=== PATIENT | male | born 1950 | race Caucasian/White ===

== ENCOUNTER 2017-12-02 22:35 | Inpatient (IN) | payer MEDICAID ==
[2017-12-02] MEDS ORDERED: Acetaminophen 650mg/20.3ml solution UD ONE (22:53)
--- NOTE | 2017-12-02 23:16 | C.PDOC ---
History Of Present Illness 67 year old male presents to the ED complaining of a severe sore throat since this afternoon. States he ate bread this morning and had some trouble swallowing. He then developed a severe sore throat and felt as if he could no longer swallow. Patient can swallow his saliva, but states even when taking a breath he has pain. He then developed a fever of 101. Time Seen by Provider: 12/02/17 22:53 Chief Complaint (Nursing): Fever History Per: Patient History/Exam Limitations: no limitations Onset/Duration Of Symptoms: Days (x1) Current Symptoms Are (Timing): Still Present Location Of Pain: Throat Past Medical History Reviewed: Historical Data, Nursing Documentation, Vital Signs - Medical History PMH: Diabetes, HTN Surgical History: No Surg Hx Family History: States: No Known Family Hx - Social History Hx Tobacco Use: No Hx Alcohol Use: No Hx Substance Use: No - Immunization History Hx Influenza Vaccination: No Hx Pneumococcal Vaccination: Yes Review Of Systems Except As Marked, All Systems Reviewed And Found Negative. Constitutional: Positive for: Fever ENT: Positive for: Throat Pain, Other (difficulty swallowing). Negative for: Nose Congestion Respiratory: Negative for: Cough, Shortness of Breath Physical Exam - Physical Exam Appears: Non-toxic, No Acute Distress Skin: Normal Color, Warm, Dry Head: Atraumatic, Normacephalic Eye(s): bilateral: Normal Inspection, PERRL, EOMI Nose: Normal Throat: Normal, No Erythema, No Exudate, No Drooling, Other (voice hoarse) Neck: Normal ROM, Trachea Midline, Supple Lymphatic: Normal Exam, No Adenopathy Chest: Symmetrical Cardiovascular: Rhythm Regular Respiratory: No Rhonchi, No Wheezing, Other (Harsh breath sounds with each inspiration, but lungs are clear to auscultation) Extremity: Bilateral: Atraumatic, Normal Color And Temperature Neurological/Psych: Normal Speech, Other (Awake and alert) ED Course And Treatment - Laboratory Results Result Diagrams: 12/02/17 23:22 12/02/17 23:22 Lab Interpretation: Abnormal (WBC 10.3 with 90 segs) Medical Decision Making Medical Decision Making: Time: 23:02 Initial Plan: * CMP * CBC * Rapid strep test * CT Neck Soft Tissue w/ contrast Disposition - Disposition Disposition Time: 01:17 Condition: STABLE Forms: Eat Latin (Croatian) - Clinical Impression Clinical Impression: Pharyngitis, Fever - Scribe Statement The provider has reviewed the documentation as recorded by the Martyibe Antonia Ashley Provider Attestation: All medical record entries made by the Phil were at my direction and personally dictated by me. I have reviewed the chart and agree that the record accurately reflects my personal performance of the history, physical exam, medical decision making, and the department course for this patient. I have also personally directed, reviewed, and agree with the discharge instructions and disposition. Physician Patient Turnover Patient Signed Over To: Peter Harper Handoff Comments: pending CT scan results.
[2017-12-02 23:25] LABS: BASO # 0.1 K/uL (0.0-0.2); BASO % 0.6 % (0.0-2.0); EOS % 0.3 % (0.0-4.0); HEMOGLOBIN 10.8 g/dL (12.0-18.0); LYMPH # 0.3 K/uL (1.0-4.3); LYMPH % 3.3 % (20.0-40.0); MEAN CELL VOLUME 85.6 fL (80.0-94.0); MEAN CORPUSCULAR HEMOGLOBIN 29.6 pg (27.0-31.0); MEAN CORPUSCULAR HGB CONC 34.6 g/dL (33.0-37.0); MEAN PLATELET VOLUME 9.1 fL (7.2-11.7); MONO # 0.5 K/uL (0.0-0.8); MONO % 5.1 % (0.0-10.0); NEUT # 9.3 K/uL (1.8-7.0); NEUT % 90.7 % (50.0-75.0); PLATELET COUNT 228 K/uL (130-400); RBC 3.64 Mil/uL (4.40-5.90); RED CELL DISTRIBUTION WIDTH 13.1 % (11.5-14.5); WHITE BLOOD COUNT 10.3 K/uL (4.8-10.8)
[2017-12-02 23:38] LABS: ALBUMIN 3.8 g/dL (3.5-5.0); ALT/SGPT 28 U/L (21-72); AST/SGOT 32 U/L (17-59); BLOOD UREA NITROGEN 26 mg/dL (9-20); CALCIUM 8.8 mg/dl (8.6-10.4); GFR AFRICAN-AMERICAN > 60; GFR NON-AFRICAN AMERICAN 51
[2017-12-02] MEDS ORDERED: Iohexol 300 100 ML IJ ONE (23:39)
[2017-12-02 23:54] LABS: EOSINOPHIL 1 % (0-4); LYMPHOCYTE 3 % (20-40); MONOCYTE 4 % (0-10); NEUTROPHIL 92 % (50-75); TOTAL CELLS COUNTED 100
[2017-12-02 23:55] LABS: PLATELET ESTIMATE NORMAL (NORMAL)
[2017-12-02 23:56] LABS: ANISOCYTOSIS SLIGHT; OVALOCYTES SLIGHT; POIKILOCYTOSIS SLIGHT
[2017-12-03] MEDS ORDERED: Sodium Chloride 0.9% 1,000 ML IV ONE (00:02)
[2017-12-03] MEDS ORDERED: Sodium Chloride 0.9% 1,000 ML ONE (00:20)
--- NOTE | 2017-12-03 01:50 | CT ---
EXAM: CT Neck With Intravenous Contrast EXAM DATE/TIME: 12/02/2017 11:04 PM CLINICAL HISTORY: 67 years old, male; Pain; Painful swallowing; Additional info: Sore throat with difficulty breathing TECHNIQUE: Axial computed tomography images of the neck with intravenous contrast. All CT scans at this facility use one or more dose reduction techniques, viz.: automated exposure control; ma/kV adjustment per patient size (including targeted exams where dose is matched to indication; i.e. head); or iterative reconstruction technique. Coronal and sagittal reformatted images were created and reviewed. CONTRAST: 100 mL of OMNI 300 administered intravenously. COMPARISON: No relevant prior studies available. FINDINGS: The epiglottis is markedly enlarged with heterogeneous enhancement (measuring 2 x 2 centimeters on sagittal image 64). The enlarged epiglottis narrows the airway although it remains patent. In the prevertebral soft tissues at C3-4, there is a rounded 1 cm area of low attenuation also seen on sagittal image 64, nearly abutting the enlarged inflamed epiglottis. There is heterogeneous enhancement along the inferior aspect. I am concerned about early developing retropharyngeal abscess. There is a 7 mm area of enhancement in the peripheral right upper lung of uncertain etiology possible AVM. Recommend correlation with priors if any exist. Otherwise, followup is recommended. Mild mucosal thickening of the maxillary sinuses. Vascular calcifications are noted. Mild degenerative changes are present in the osseous structures. IMPRESSION: Massively enlarged epiglottis likely secondary to acute infectious/inflammatory process although underlying lesion would certainly be possible. Mass effect upon the airway although the airway remains patent. Rounded fluid density along the anterior aspect of C3-4 possible early developing retropharyngeal abscess.
[2017-12-03] MEDS ORDERED: EPINEPHrine 1 mg/ml (1:1000) Inj ONE (02:06)
[2017-12-03] MEDS ORDERED: EPINEPHrine 1 mg/ml (1:1000) Inj IM ONE (02:18)
--- NOTE | 2017-12-03 02:31 | CP.PCM.HP ---
<Michell Wei - Last Filed: 12/03/17 02:44> History of Present Illness - History of Present Illness History of Present Illness: CC: SOB Patient had SOB for a day, unable to tolerate food, last drank tea at 9 am . Patient was offered a slice of bread by family, but patient had difficulty swallowing and did not want to eat. Patient admits to fever. Denies chills, diarrhea, constipation, numbness, weakness. Patient states he had a rash on his arm recently which went away after being given benadryl. In ER patient was given decadron and epinephrine. Upon interview, patient did not have stridor, no accessory muscle use. PMH: DM, HTN Meds: metforming, norvasc psh: no surgical history Family history: non-contributory Social: no smoking, no etoh, no illicit drug use Present on Admission - Present on Admission Any Indicators Present on Admission: No History of DVT/PE: No History of Uncontrolled Diabetes: No Urinary Catheter: No Past Patient History - Past Social History Smoking Status: Never Smoked - CARDIAC Hx Hypertension: Yes - ENDOCRINE/METABOLIC Hx Endocrine Disorders: Yes Hx Diabetes Mellitus Type 1: Yes - PSYCHIATRIC Hx Substance Use: No - SURGICAL HISTORY Hx Surgeries: No - ANESTHESIA Hx Anesthesia: No Meds Allergies/Adverse Reactions: Allergies Allergy/AdvReac Type Severity Reaction Status Date / Time No Known Allergies Allergy Verified 12/02/17 22:44 Physical Exam - Constitutional Appears: No Acute Distress - Head Exam Head Exam: ATRAUMATIC, NORMAL INSPECTION, NORMOCEPHALIC - Eye Exam Eye Exam: EOMI, Normal appearance Pupil Exam: NORMAL ACCOMODATION, PERRL - ENT Exam ENT Exam: Mucous Membranes Moist - Neck Exam Neck exam: Positive for: Full Rom. Negative for: Lymphadenopathy - Respiratory Exam Respiratory Exam: NORMAL BREATHING PATTERN. absent: Accessory Muscle Use, Wheezes, Stridor Additional comments: patient is leaning forward slightly with open mouth breathing and nasal cannula - Cardiovascular Exam Cardiovascular Exam: REGULAR RHYTHM, +S1, +S2 - GI/Abdominal Exam GI & Abdominal Exam: Normal Bowel Sounds, Soft. absent: Tenderness - Extremities Exam Extremities exam: Positive for: full ROM, normal inspection. Negative for: pedal edema - Back Exam Back exam: FULL ROM, NORMAL INSPECTION - Neurological Exam Neurological exam: Alert, CN II-XII Intact, Oriented x3 - Psychiatric Exam Psychiatric exam: Normal Affect, Normal Mood - Skin Skin Exam: Dry, Intact, Normal Color, Warm Results - Vital Signs Recent Vital Signs: Last Vital Signs Temp Pulse 94 H 12/03/17 02:20 Resp 15 12/03/17 02:20 BP 166/80 H 12/03/17 02:20 Pulse Ox 99 12/03/17 02:20 - Labs Result Diagrams: 12/02/17 23:22 12/02/17 23:22 Labs: Laboratory Results - last 24 hr 12/02/17 12/02/17 12/02/17 23:22 23:22 23:22 WBC 10.3 RBC 3.64 L Hgb 10.8 L Hct 31.1 L MCV 85.6 MCH 29.6 MCHC 34.6 RDW 13.1 Plt Count 228 MPV 9.1 Neut % (Auto) 90.7 H Lymph % (Auto) 3.3 L [place] % (Auto) 5.1 Eos % (Auto) 0.3 Baso % (Auto) 0.6 Neut # (Auto) 9.3 H Lymph # (Auto) 0.3 L [place] # (Auto) 0.5 Eos # (Auto) 0.0 Baso # (Auto) 0.1 Neutrophils % (Manual) 92 H Lymphocytes % (Manual) 3 L Monocytes % (Manual) 4 Eosinophils % (Manual) 1 Platelet Estimate Normal Poikilocytosis (manual Slight Anisocytosis (manual) Slight Ovalocytes Slight Sodium 139 Potassium 4.3 Chloride 105 Carbon Dioxide 24 Anion Gap 14 BUN 26 H Creatinine 1.4 Est GFR ( Amer) > 60 Est GFR (Non-Af Amer) 51 Random Glucose 100 Calcium 8.8 Total Bilirubin 1.0 AST 32 ALT 28 Alkaline Phosphatase 81 Total Protein 7.5 Albumin 3.8 Globulin 3.6 Albumin/Globulin Ratio 1.0 Grp A Beta Strep Ag Negative Assessment & Plan - Assessment and Plan (Free Text) Assessment: 67M with pmh of diabetes, presents with difficulty breathing, found to have stridor and severe epiglotitis Epiglotitis and possible early developing retropharyngeal abscess patient went to OR for airway management and moved to ICU for admission 12/03/17 CT soft tissues of neck: massively enlarged epiglottis secondary to acute infectious/inflammatory process. airway remains patent. Rounded fluid density along anterior aspect of C3-C4, consider early developing retropharyngeal abscess f/u blood culture decadron rocephin 1gm qd DM accucheck q6h insulin ss HTN hold home norvasc monitor vitals Prophylaxis: heparin 5000 sc protonix scds NPO Michell Wei DO PGY1 - Date & Time Date: 12/03/17 Time: 02:27 <Jose Damian P - Last Filed: 12/03/17 03:23> Results - Vital Signs Recent Vital Signs: Last Vital Signs Temp 99.5 F 12/03/17 02:00 Pulse 103 H 12/03/17 03:10 Resp 18 12/03/17 03:10 BP 167/77 H 12/03/17 03:10 Pulse Ox 100 12/03/17 03:10 - Labs Result Diagrams: 12/02/17 23:22 12/02/17 23:22 Labs: Laboratory Results - last 24 hr 12/02/17 12/02/17 12/02/17 23:22 23:22 23:22 WBC 10.3 RBC 3.64 L Hgb 10.8 L Hct 31.1 L MCV 85.6 MCH 29.6 MCHC 34.6 RDW 13.1 Plt Count 228 MPV 9.1 Neut % (Auto) 90.7 H Lymph % (Auto) 3.3 L Carolina % (Auto) 5.1 Eos % (Auto) 0.3 Baso % (Auto) 0.6 Neut # (Auto) 9.3 H Lymph # (Auto) 0.3 L [place] # (Auto) 0.5 Eos # (Auto) 0.0 Baso # (Auto) 0.1 Neutrophils % (Manual) 92 H Lymphocytes % (Manual) 3 L Monocytes % (Manual) 4 Eosinophils % (Manual) 1 Platelet Estimate Normal Poikilocytosis (manual Slight Anisocytosis (manual) Slight Ovalocytes Slight Sodium 139 Potassium 4.3 Chloride 105 Carbon Dioxide 24 Anion Gap 14 BUN 26 H Creatinine 1.4 Est GFR ( Amer) > 60 Est GFR (Non-Af Amer) 51 Random Glucose 100 Calcium 8.8 Total Bilirubin 1.0 AST 32 ALT 28 Alkaline Phosphatase 81 Total Protein 7.5 Albumin 3.8 Globulin 3.6 Albumin/Globulin Ratio 1.0 Grp A Beta Strep Ag Negative Attending/Attestation - Attestation I have personally seen and examined this patient.: Yes I have fully participated in the care of the patient.: Yes I have reviewed all pertinent clinical information: Yes Notes (Text): 12/03/17 03:17 67 M with h/o dm, htn, had fever yesterday afternoon, difficulty in breathing and speaking since around 6 pm, In ER CT shows swelling of epiglottis, extending down to larynx, but patent underneath cords. In ER evaluated post decadron, epinephrine and rocephin. At time of exam no stridor, but sight hoarse voice, pain in larynx but no breathing distress Plan Elective intubation, in OR in presence of ENT for possible trach decadron, abx GI/DVT prophylaxis Insulin sliding scale See orders for detail.
[2017-12-03] MEDS ORDERED: Propofol 10 mg/ml Inj (20 ML) ONE ×2 (03:44→04:09)
[2017-12-03] MEDS ORDERED: Lidocaine/Epinephrine 1% 1:100000 10 ML IJ ONE (03:49)
[2017-12-03] MEDS: ceFAZolin IV 1 gm in Dextrose 1 GM/50 ML BAG IVPB ONE (03:54)
[2017-12-03] MEDS ORDERED: Midazolam 2 MG/2 ML VIAL ONE (04:08)
[2017-12-03] MEDS ORDERED: Succinylcholine Chloride 20 mg/ml Syr (5 ml) IV ONE (04:08)
[2017-12-03] MEDS ORDERED: Propofol 10 mg/ml Inj (100 ml) IV SCH (04:30)
[2017-12-03] MEDS: Sodium Chloride 0.45% 1,000 ML IV SCH ×4 (05:00→16:40)
[2017-12-03] MEDS: Propofol 10 mg/ml 1,000 MG/100 ML VIAL IV PRN ×4 (05:00→22:30)
[2017-12-03 06:08] LABS: ABG ALLEN TEST POS; ARTERIAL BLOOD GAS HCO3 21.1 mmol/L (21-28); ARTERIAL BLOOD GAS HEMOGLOBIN 9.7 g/dL (11.7-17.4); ARTERIAL BLOOD GAS O2 SAT 98.6 % (95-98); ARTERIAL BLOOD GAS PCO2 39 mm/Hg (35-45); ARTERIAL BLOOD GAS PH 7.33 (7.35-7.45); ARTERIAL BLOOD GAS PO2 157 mm/Hg (80-100); ARTERIAL BLOOD GAS TCO2 21.8 mmol/L (22-28)
[2017-12-03] MEDS: (Novolin R) Insulin Human Regular 100 units/ml vial SC SCH ×3 (06:35→17:38)
[2017-12-03] MEDS: Dexamethasone 4 mg/1 ml IVP SCH ×3 (06:40→21:40)
[2017-12-03 06:44] LABS: BASO % 0.1 % (0.0-2.0); HEMOGLOBIN 9.2 g/dL (12.0-18.0); LYMPH # 0.2 K/uL (1.0-4.3); LYMPH % 1.5 % (20.0-40.0); MEAN CELL VOLUME 86.1 fL (80.0-94.0); MEAN CORPUSCULAR HEMOGLOBIN 29.5 pg (27.0-31.0); MEAN CORPUSCULAR HGB CONC 34.2 g/dL (33.0-37.0); MEAN PLATELET VOLUME 9.6 fL (7.2-11.7); MONO # 0.2 K/uL (0.0-0.8); MONO % 1.8 % (0.0-10.0); NEUT # 11.2 K/uL (1.8-7.0); NEUT % 96.6 % (50.0-75.0); PLATELET COUNT 207 K/uL (130-400); RBC 3.12 Mil/uL (4.40-5.90); RED CELL DISTRIBUTION WIDTH 13.3 % (11.5-14.5); WHITE BLOOD COUNT 11.6 K/uL (4.8-10.8)
[2017-12-03 06:59] LABS: CALCIUM 7.6 mg/dl (8.6-10.4)
[2017-12-03] MEDS ORDERED: (Novolin R) Insulin Human Regular 100 units/ml vial SC SCH (07:30)
--- NOTE | 2017-12-03 08:24 | RAD ---
HISTORY: post intubation COMPARISON: 12/03/2017 FINDINGS: Endotracheal tube terminates 2.5 cm proximal to the scotty. LUNGS: The lungs are well inflated and clear. PLEURA: No significant pleural effusion identified, no pneumothorax apparent. CARDIOVASCULAR: Normal. OSSEOUS STRUCTURES: No significant abnormalities. VISUALIZED UPPER ABDOMEN: Normal. OTHER FINDINGS: None. IMPRESSION: Endotracheal tube terminates 2.5 cm proximal to the scotty. No acute findings.
--- NOTE | 2017-12-03 08:28 | RAD ---
PROCEDURE: CHEST RADIOGRAPH, 1 VIEW HISTORY: Shortness of breath COMPARISON: None available. FINDINGS: LUNGS: The lungs are well inflated. There is bibasilar atelectasis. There are probable calcified granulomas in the lower lobes. PLEURA: No pneumothorax or pleural fluid seen. CARDIOVASCULAR: Normal. OSSEOUS STRUCTURES: No significant abnormalities. VISUALIZED UPPER ABDOMEN: Normal. OTHER FINDINGS: None. IMPRESSION: No active pulmonary disease.
[2017-12-03 09:09] LABS: URINE BILIRUBIN NEGATIVE (NEGATIVE); URINE BLOOD NEGATIVE (NEGATIVE); URINE CLARITY Clear (Clear); URINE COLOR Straw (YELLOW); URINE GLUCOSE (UA) NORMAL (Normal); URINE LEUKOCYTE ESTERASE NEG Leu/uL (Negative); URINE PROTEIN 3+ mg/dL (NEGATIVE); URINE UROBILINOGEN NORMAL mg/dL (0.2-1.0)
[2017-12-03 09:11] LABS: BANDS 7 % (0-2); LYMPHOCYTE 1 % (20-40); MONOCYTE 1 % (0-10); NEUTROPHIL 91 % (50-75); PLATELET ESTIMATE NORMAL (NORMAL); TOTAL CELLS COUNTED 100
[2017-12-03 09:12] LABS: ANISOCYTOSIS SLIGHT; HYPOCHROMIC SLIGHT
[2017-12-03 09:15] LABS: BURR CELLS SLIGHT; OVALOCYTES SLIGHT; POIKILOCYTOSIS SLIGHT
[2017-12-03 09:16] LABS: LARGE PLATELETS PRESENT; MICROCYTOSIS SLIGHT
--- NOTE | 2017-12-03 09:24 | CP.PCM.PN ---
Subjective - Date & Time of Evaluation Date of Evaluation: 12/03/17 Time of Evaluation: 09:00 - Subjective Subjective: Hospitalist Progress Note Patient was seen and examined at 9 AM 12/03/17 ICU Bed 14 A 67 year old male who presented late night 12/02/17 with complaints of SOB, Fever , Dysphagia. He was found to have Epiglottitis and possible Retropharyngeal Abscess and required intubation. He was admitted to the ICU for further treatment and evaluation. ROS is not possible secondary to the patient being intubated/on vent Exam: General: Intubated on Vent and Diprivan HEENT: NCA, Right Pupil slightly larger than the Left but both are reactive to light, NO cervical/supraclavicular/submandibular lymphadenopathy, Nasal Turbinates are nonerythematous/nonedematous Cardio: NS1 and NS2, NO M/R/G Resp: CTA B/L, NO R/R/W GI: BSx4, Soft, NO HSM Ext: Pulses are strong and equal, Capillary Refill is 2 seconds, NO edema Neuro: NOT possible Skin: Multiple Excoriations on the Left Buttock/Lateral Thigh without signs of cellulitis Assessment and Plan: 1). Epiglottitis and Possible Retropharygeal Abscess CT Soft Tissue Neck with contrast: massively enlarged epiglottis secondary to likely acute infectious/inflammatory process with mass effect upon airway although airway is patent, rounded fluid density along the anterior aspect of C3 -4 that is possible early developing retropharyngeal abscess Ceftriaxone 1 gm IV Q24H (12/03/17) Clindamycin 300 mg IV Q6H (12/03/17) Dexamethasone 4 mg IV Q8H (12/03/17) Diprivan 5 mcg/kg/min F/U Herpes Simplex Virus 1/2 F/U Varicella Zoster Virus F/U Parainfluenza Virus F/U Rapid Influenza F/U Xiao Armstrong Virus F/U Group A Strep F/U Throat Culture F/U Blood Culture F/U further recommendations ID Dr. Perales F/U further recommendations ENT Dr. Graves Status: Acute 2). Hx DM 2 HOLD Metformin 500 mg PO 2x/day Regular ISS Q6H F/U HgBA1C, Lipid Panel, TSH, T4 Status: Chronic 3). Hx HTN HOLD Norvasc 5 mg PO 1x/day as patient on Diprivan Status: Chronic 4). Prophylaxis Heparin 5,000 Units SC Q8H SCDs Protonix 40 mg IV 1x/day Start Florastor once extubated Karan Amin D.O. Objective - Vital Signs/Intake and Output Vital Signs (last 24 hours): Temp Pulse Resp BP Pulse Ox 98.7 F 74 14 105/54 L 99 12/03/17 08:00 12/03/17 07:00 12/03/17 08:00 12/03/17 07:00 12/03/17 08:00 Intake and Output: 12/03/17 12/03/17 06:59 18:59 Intake Total 839.8 538.4 Output Total 540 80 Balance 299.8 458.4 - Medications Medications: Current Medications Dexamethasone (Decadron Inj) 4 mg IVP Q8H [facility] Last Admin: 12/03/17 06:40 Dose: 4 mg Ceftriaxone Sodium 1 gm/ (Sodium Chloride) 100 mls @ 100 mls/hr IVPB DAILY ALAN PRN Reason: Protocol Sodium Chloride (Sodium Chloride 0.45%) 1,000 mls @ 100 mls/hr IV .Q10H ALAN Last Admin: 12/03/17 05:15 Dose: 100 mls/hr Propofol (Diprivan) 1,000 mg in 100 mls @ 1.8 mls/hr IV .Q24H PRN; Protocol; 5 MCG/KG/MIN PRN Reason: TITRATE PER MD ORDER Last Admin: 12/03/17 09:05 Dose: 30 mcg/kg/min, 10.8 mls/hr Doxycycline Hyclate 100 mg/ (Sodium Chloride) 100 mls @ 100 mls/hr IVPB Q12H ALAN PRN Reason: Protocol Last Admin: 12/03/17 08:45 Dose: 100 mls/hr Insulin Human Regular (Novolin R) 0 unit SC Q6 ALAN PRN Reason: Protocol Last Admin: 12/03/17 06:35 Dose: Not Given Lorazepam (Ativan) 1 mg IVP Q6H PRN PRN Reason: Anxiety Last Admin: 12/03/17 05:30 Dose: 1 mg Pantoprazole Sodium (Protonix Inj) 40 mg IVP DAILY ALAN - Labs Labs: 12/03/17 06:32 12/03/17 06:31
[2017-12-03] MEDS ORDERED: Clindamycin 300 MG in Sodium Chloride 0.9% 50 ML IVPB SCH (09:30)
[2017-12-03] MEDS: Clindamycin 300 MG in Sodium Chloride 0.9% 100 ML IVPB SCH ×3 (10:33→21:15)
[2017-12-03 11:29] LABS: INFLUENZA A B NEGATIVE FOR FLU A/B (NEGATIVE)
--- NOTE | 2017-12-03 16:11 | CP.PCM.CON ---
History of Present Illness - History of Present Illness History of Present Illness: Acute respirator failure HPI: 67 male with a history of diabetes and hypertension admitted to the hospital because of not able to eat well. Patient was having progressively worsening difficulty in swallowing, and also started having some swelling in the mouth, and also difficulty in swallowing and breathing. Patient was also having fever, chills, diarrhea, and the episodes of constipation. He was also having increasing rash-like skin lesions noted. Initially patient was given Decadron and epinephrine, but no improvement, patient was intubated in the operating room. Past medical history: Diabetes and hypertension Medicines reviewed in Family history noncontributory Social history negative On examination: Patient is currently sedated. Vital signs are stable. Chest good air entry regular heart tone nontender abdomen [employer] sedated Labs reviewed Nonspecific Chest x-ray normal Blood gas analysis stable Assessment and impression: 67 male with a history of diabetes and hypertension admitted with acute oropharyngitis. And associated with this epiglottitis, and swelling. Prophylactically intubated, on antibiotic and steroid. Closely monitor. Possible extubation once medically stable. Past Patient History - Past Medical History & Family History Past Medical History?: Yes - Past Social History Smoking Status: Never Smoked - CARDIAC Hx Hypertension: Yes - PULMONARY Other/Comment: epiglottis - ENDOCRINE/METABOLIC Hx Endocrine Disorders: Yes Hx Diabetes Mellitus Type 1: Yes - MUSCULOSKELETAL/RHEUMATOLOGICAL Hx Falls: No - PSYCHIATRIC Hx Substance Use: No - SURGICAL HISTORY Hx Surgeries: No - ANESTHESIA Hx Anesthesia: No Meds Allergies/Adverse Reactions: Allergies Allergy/AdvReac Type Severity Reaction Status Date / Time No Known Allergies Allergy Verified 12/02/17 22:44 - Medications Medications: Current Medications Dexamethasone (Decadron Inj) 4 mg IVP Q8H [facility] Last Admin: 12/03/17 14:42 Dose: 4 mg Heparin Sodium (Porcine) (Heparin) 5,000 units SC Q8 [facility] Last Admin: 12/03/17 14:42 Dose: 5,000 units Ceftriaxone Sodium 1 gm/ (Sodium Chloride) 100 mls @ 100 mls/hr IVPB DAILY [facility] PRN Reason: Protocol Last Admin: 12/03/17 10:25 Dose: 100 mls/hr Sodium Chloride (Sodium Chloride 0.45%) 1,000 mls @ 100 mls/hr IV .Q10H [facility] Last Admin: 12/03/17 05:15 Dose: 100 mls/hr Propofol (Diprivan) 1,000 mg in 100 mls @ 1.8 mls/hr IV .Q24H PRN; Protocol; 5 MCG/KG/MIN PRN Reason: TITRATE PER MD ORDER Last Admin: 12/03/17 15:25 Dose: 40 mcg/kg/min, 14.4 mls/hr Clindamycin Phosphate 300 mg/ (Sodium Chloride) 102 mls @ 200 mls/hr IVPB Q6H [facility] PRN Reason: Protocol Last Admin: 12/03/17 10:33 Dose: 200 mls/hr Insulin Human Regular (Novolin R) 0 unit SC Q6 [facility] PRN Reason: Protocol Last Admin: 12/03/17 11:40 Dose: Not Given Lorazepam (Ativan) 1 mg IVP Q6H PRN PRN Reason: Anxiety Last Admin: 12/03/17 05:30 Dose: 1 mg Pantoprazole Sodium (Protonix Inj) 40 mg IVP DAILY [facility] Last Admin: 12/03/17 10:25 Dose: 40 mg Results - Vital Signs Recent Vital Signs: Last Vital Signs Temp 97.2 F L 12/03/17 12:00 Pulse 56 L 12/03/17 15:02 Resp 15 12/03/17 15:02 BP 105/52 L 12/03/17 15:02 Pulse Ox 99 12/03/17 15:02 - Labs Result Diagrams: 12/03/17 06:32 12/03/17 06:31 Labs: Laboratory Results - last 24 hr 12/02/17 12/02/17 12/02/17 23:22 23:22 23:22 WBC 10.3 RBC 3.64 L Hgb 10.8 L Hct 31.1 L MCV 85.6 MCH 29.6 MCHC 34.6 RDW 13.1 Plt Count 228 MPV 9.1 Neut % (Auto) 90.7 H Lymph % (Auto) 3.3 L [place] % (Auto) 5.1 Eos % (Auto) 0.3 Baso % (Auto) 0.6 Neut # (Auto) 9.3 H Lymph # (Auto) 0.3 L [place] # (Auto) 0.5 Eos # (Auto) 0.0 Baso # (Auto) 0.1 Neutrophils % (Manual) 92 H Band Neutrophils % Lymphocytes % (Manual) 3 L Monocytes % (Manual) 4 Eosinophils % (Manual) 1 Platelet Estimate Normal Large Platelets Hypochromasia (manual) Poikilocytosis (manual Slight Anisocytosis (manual) Slight Microcytosis (manual) Ovalocytes Slight [place] Cells Puncture Site pCO2 pO2 HCO3 ABG pH ABG Total CO2 ABG O2 Saturation ABG Base Excess ABG Hemoglobin ABG Carboxyhemoglobin POC ABG HHb (Measured) ABG Methemoglobin Marlon Test A-a O2 Difference Respiratory Index Hgb O2 Saturation Vent Mode Mechanical Rate FiO2 Tidal Volume PEEP Sodium 139 Potassium 4.3 Chloride 105 Carbon Dioxide 24 Anion Gap 14 BUN 26 H Creatinine 1.4 Est GFR ( Amer) > 60 Est GFR (Non-Af Amer) 51 POC Glucose (mg/dL) Random Glucose 100 Calcium 8.8 Phosphorus Magnesium Total Bilirubin 1.0 AST 32 ALT 28 Alkaline Phosphatase 81 Total Protein 7.5 Albumin 3.8 Globulin 3.6 Albumin/Globulin Ratio 1.0 Urine Color Urine Clarity Urine pH Ur Specific [place] Urine Protein Urine Glucose (UA) Urine Ketones Urine Blood Urine Nitrate Urine Bilirubin Urine Urobilinogen Ur Leukocyte Esterase Urine WBC (Auto) Urine RBC (Auto) Influenza Typ A,B (EIA) Grp A Beta Strep Ag Negative Blood Type Antibody Screen 12/03/17 12/03/17 12/03/17 02:57 05:07 05:08 WBC RBC Hgb Hct MCV MCH MCHC RDW Plt Count MPV Neut % (Auto) Lymph % (Auto) [place] % (Auto) Eos % (Auto) Baso % (Auto) Neut # (Auto) Lymph # (Auto) [place] # (Auto) Eos # (Auto) Baso # (Auto) Neutrophils % (Manual) Band Neutrophils % Lymphocytes % (Manual) Monocytes % (Manual) Eosinophils % (Manual) Platelet Estimate Large Platelets Hypochromasia (manual) Poikilocytosis (manual Anisocytosis (manual) Microcytosis (manual) Ovalocytes [place] Cells Puncture Site pCO2 pO2 HCO3 ABG pH ABG Total CO2 ABG O2 Saturation ABG Base Excess ABG Hemoglobin ABG Carboxyhemoglobin POC ABG HHb (Measured) ABG Methemoglobin Marlon Test A-a O2 Difference Respiratory Index Hgb O2 Saturation Vent Mode Mechanical Rate FiO2 Tidal Volume PEEP Sodium Potassium Chloride Carbon Dioxide Anion Gap BUN Creatinine Est GFR ( Amer) Est GFR (Non-Af Amer) POC Glucose (mg/dL) 84 Random Glucose Calcium Phosphorus Magnesium Total Bilirubin AST ALT Alkaline Phosphatase Total Protein Albumin Globulin Albumin/Globulin Ratio Urine Color Straw Urine Clarity Clear Urine pH 6.0 Ur Specific [place] 1.030 Urine Protein 3+ H Urine Glucose (UA) Normal Urine Ketones Negative Urine Blood Negative Urine Nitrate Negative Urine Bilirubin Negative Urine Urobilinogen Normal Ur Leukocyte Esterase Neg Urine WBC (Auto) < 1 Urine RBC (Auto) 4 H Influenza Typ A,B (EIA) Grp A Beta Strep Ag Blood Type B POSITIVE Antibody Screen Negative 12/03/17 12/03/17 12/03/17 06:00 06:20 06:31 WBC RBC Hgb Hct MCV MCH MCHC RDW Plt Count MPV Neut % (Auto) Lymph % (Auto) [place] % (Auto) Eos % (Auto) Baso % (Auto) Neut # (Auto) Lymph # (Auto) [place] # (Auto) Eos # (Auto) Baso # (Auto) Neutrophils % (Manual) Band Neutrophils % Lymphocytes % (Manual) Monocytes % (Manual) Eosinophils % (Manual) Platelet Estimate Large Platelets Hypochromasia (manual) Poikilocytosis (manual Anisocytosis (manual) Microcytosis (manual) Ovalocytes [place]avier Cells Puncture Site Rradial pCO2 39 pO2 157 H HCO3 21.1 ABG pH 7.33 L ABG Total CO2 21.8 L ABG O2 Saturation 98.6 H ABG Base Excess -4.9 L ABG Hemoglobin 9.7 L ABG Carboxyhemoglobin 1.0 POC ABG HHb (Measured) 1.4 ABG Methemoglobin 0.6 Marlon Test Pos A-a O2 Difference 79.0 Respiratory Index 0.5 Hgb O2 Saturation 97.0 Vent Mode Prvc Mechanical Rate 14 FiO2 40.0 Tidal Volume 450 PEEP 5 Sodium 137 Potassium 4.2 Chloride 105 Carbon Dioxide 20 L Anion Gap 16 BUN 24 H Creatinine 1.5 Est GFR ( Amer) 57 Est GFR (Non-Af Amer) 47 POC Glucose (mg/dL) 101 Random Glucose 91 Calcium 7.6 L Phosphorus 4.0 Magnesium 1.6 Total Bilirubin 0.5 AST 24 ALT 26 Alkaline Phosphatase 70 Total Protein 6.2 L Albumin 3.0 L D Globulin 3.2 Albumin/Globulin Ratio 1.0 Urine Color Urine Clarity Urine pH Ur Specific [place] Urine Protein Urine Glucose (UA) Urine Ketones Urine Blood Urine Nitrate Urine Bilirubin Urine Urobilinogen Ur Leukocyte Esterase Urine WBC (Auto) Urine RBC (Auto) Influenza Typ A,B (EIA) Grp A Beta Strep Ag Blood Type Antibody Screen 12/03/17 12/03/17 12/03/17 06:32 09:13 10:56 WBC 11.6 H RBC 3.12 L Hgb 9.2 L Hct 26.9 L MCV 86.1 MCH 29.5 MCHC 34.2 RDW 13.3 Plt Count 207 MPV 9.6 Neut % (Auto) 96.6 H Lymph % (Auto) 1.5 L [place] % (Auto) 1.8 Eos % (Auto) 0.0 Baso % (Auto) 0.1 Neut # (Auto) 11.2 H Lymph # (Auto) 0.2 L [place] # (Auto) 0.2 Eos # (Auto) 0.0 Baso # (Auto) 0.0 Neutrophils % (Manual) 91 H Band Neutrophils % 7 H Lymphocytes % (Manual) 1 L Monocytes % (Manual) 1 Eosinophils % (Manual) Platelet Estimate Normal Large Platelets Present Hypochromasia (manual) Slight Poikilocytosis (manual Slight Anisocytosis (manual) Slight Microcytosis (manual) Slight Ovalocytes Slight [place] Cells Slight Puncture Site pCO2 pO2 HCO3 ABG pH ABG Total CO2 ABG O2 Saturation ABG Base Excess ABG Hemoglobin ABG Carboxyhemoglobin POC ABG HHb (Measured) ABG Methemoglobin Marlon Test A-a O2 Difference Respiratory Index Hgb O2 Saturation Vent Mode Mechanical Rate FiO2 Tidal Volume PEEP Sodium Potassium Chloride Carbon Dioxide Anion Gap BUN Creatinine Est GFR ( Amer) Est GFR (Non-Af Amer) POC Glucose (mg/dL) Random Glucose Calcium Phosphorus Magnesium Total Bilirubin AST ALT Alkaline Phosphatase Total Protein Albumin Globulin Albumin/Globulin Ratio Urine Color Urine Clarity Urine pH Ur Specific [place] Urine Protein Urine Glucose (UA) Urine Ketones Urine Blood Urine Nitrate Urine Bilirubin Urine Urobilinogen Ur Leukocyte Esterase Urine WBC (Auto) Urine RBC (Auto) Influenza Typ A,B (EIA) Negative for flu a/b Grp A Beta Strep Ag Negative Blood Type Antibody Screen 12/03/17 11:34 WBC RBC Hgb Hct MCV MCH MCHC RDW Plt Count MPV Neut % (Auto) Lymph % (Auto) [place] % (Auto) Eos % (Auto) Baso % (Auto) Neut # (Auto) Lymph # (Auto) [place] # (Auto) Eos # (Auto) Baso # (Auto) Neutrophils % (Manual) Band Neutrophils % Lymphocytes % (Manual) Monocytes % (Manual) Eosinophils % (Manual) Platelet Estimate Large Platelets Hypochromasia (manual) Poikilocytosis (manual Anisocytosis (manual) Microcytosis (manual) Ovalocytes [place] Cells Puncture Site pCO2 pO2 HCO3 ABG pH ABG Total CO2 ABG O2 Saturation ABG Base Excess ABG Hemoglobin ABG Carboxyhemoglobin POC ABG HHb (Measured) ABG Methemoglobin Marlon Test A-a O2 Difference Respiratory Index Hgb O2 Saturation Vent Mode Mechanical Rate FiO2 Tidal Volume PEEP Sodium Potassium Chloride Carbon Dioxide Anion Gap BUN Creatinine Est GFR ( Amer) Est GFR (Non-Af Amer) POC Glucose (mg/dL) 135 H Random Glucose Calcium Phosphorus Magnesium Total Bilirubin AST ALT Alkaline Phosphatase Total Protein Albumin Globulin Albumin/Globulin Ratio Urine Color Urine Clarity Urine pH Ur Specific [place] Urine Protein Urine Glucose (UA) Urine Ketones Urine Blood Urine Nitrate Urine Bilirubin Urine Urobilinogen Ur Leukocyte Esterase Urine WBC (Auto) Urine RBC (Auto) Influenza Typ A,B (EIA) Grp A Beta Strep Ag Blood Type Antibody Screen
[2017-12-03 16:14] LABS: VARICELLA-ZOSTER VIRUS IGG POSITIVE (POSITIVE)
[2017-12-04] MEDS: (Novolin R) Insulin Human Regular 100 units/ml vial SC SCH ×4 (00:10→17:59)
[2017-12-04] MEDS: Clindamycin 300 MG in Sodium Chloride 0.9% 100 ML IVPB SCH ×2 (04:00→10:00)
[2017-12-04] MEDS: Propofol 10 mg/ml 1,000 MG/100 ML VIAL IV PRN ×4 (05:00→22:02)
[2017-12-04] MEDS: Sodium Chloride 0.45% 1,000 ML IV SCH ×3 (05:00→19:48)
[2017-12-04] MEDS: Dexamethasone 4 mg/1 ml IVP SCH ×3 (05:03→22:03)
[2017-12-04 05:43] LABS: ABG ALLEN TEST POS; ARTERIAL BLOOD GAS HCO3 19.6 mmol/L (21-28); ARTERIAL BLOOD GAS HEMOGLOBIN 8.3 g/dL (11.7-17.4); ARTERIAL BLOOD GAS O2 SAT 98.9 % (95-98); ARTERIAL BLOOD GAS PCO2 34 mm/Hg (35-45); ARTERIAL BLOOD GAS PH 7.34 (7.35-7.45); ARTERIAL BLOOD GAS PO2 203 mm/Hg (80-100); ARTERIAL BLOOD GAS TCO2 19.3 mmol/L (22-28)
[2017-12-04 06:11] LABS: BASO % 0.1 % (0.0-2.0); HEMOGLOBIN 8.6 g/dL (12.0-18.0); LYMPH # 0.3 K/uL (1.0-4.3); LYMPH % 4.9 % (20.0-40.0); MEAN CELL VOLUME 85.7 fL (80.0-94.0); MEAN CORPUSCULAR HEMOGLOBIN 29.8 pg (27.0-31.0); MEAN CORPUSCULAR HGB CONC 34.8 g/dL (33.0-37.0); MEAN PLATELET VOLUME 9.7 fL (7.2-11.7); MONO # 0.3 K/uL (0.0-0.8); NEUT # 6.2 K/uL (1.8-7.0); PLATELET COUNT 210 K/uL (130-400); RED CELL DISTRIBUTION WIDTH 13.3 % (11.5-14.5); WHITE BLOOD COUNT 6.8 K/uL (4.8-10.8)
[2017-12-04 06:39] LABS: ALB/GLOB RATIO 0.9 (1.0-2.1); ALBUMIN 2.8 g/dL (3.5-5.0); CALCIUM 7.2 mg/dl (8.6-10.4)
[2017-12-04] MEDS: ceFAZolin IV 1 gm in Dextrose 1 GM/50 ML BAG IVPB ONE (08:23)
[2017-12-04 08:26] LABS: BANDS 2 % (0-2); HYPOCHROMIC SLIGHT; LYMPHOCYTE 1 % (20-40); MONOCYTE 3 % (0-10); NEUTROPHIL 94 % (50-75); PLATELET ESTIMATE NORMAL (NORMAL); TOTAL CELLS COUNTED 100
[2017-12-04 08:27] LABS: BURR CELLS SLIGHT
--- NOTE | 2017-12-04 08:49 | RAD ---
HISTORY: Follow up intubated Patient COMPARISON: 12/03/2017 FINDINGS: LUNGS: No active pulmonary disease. PLEURA: No significant pleural effusion identified, no pneumothorax apparent. CARDIOVASCULAR: Normal heart size. Endotracheal tube unchanged. OSSEOUS STRUCTURES: No significant abnormalities. VISUALIZED UPPER ABDOMEN: Normal. OTHER FINDINGS: None. IMPRESSION: No active disease.
[2017-12-04] MEDS ORDERED: Pneumococcal 23-Valent Vaccine SC ONE (09:02)
--- NOTE | 2017-12-04 12:17 | CP.CCUPN ---
<Arlene Davidson - Last Filed: 12/04/17 16:08> CCU Subjective - Physician Review Subjective (Free Text): 12/04/17 12:16 Patient seen and examined at bedside. Per nursing no acute events overnight. Patient is intubated and sedated. Following verbal commands. Glidoscope used to visualize epiglottis, still swollen. Will continue present management. Possibly for extubation tomorrow. CCU Objective - Vital Signs / Intake & Output Vital Signs (Last 4 hours): Vital Signs Pulse Resp BP Pulse Ox 12/04/17 11:02 58 L 12 100 12/04/17 11:00 64 14 127/64 99 12/04/17 10:00 63 14 112/60 100 12/04/17 09:02 60 15 99 12/04/17 09:00 64 15 112/62 98 Intake and Output (Last 8hrs): Intake & Output 12/03/17 12/04/17 12/04/17 22:59 06:59 14:59 Intake Total 1066.0 801.0 688.9 Output Total 440 300 Balance 626.0 501.0 688.9 Weight 66.678 kg Intake: IV 200 100 100 Intake, IV Amount 866.0 701.0 588.9 Left Antecubital 116.0 101.0 88.9 Left Hand 650 600 500 Right Hand 100 Oral 0 Output: Urine 440 300 Urethral (Carlos) 440 300 Stool 0 0 - Physical Exam Head: Positive for: Atraumatic, Normocephalic Pupils: Positive for: PERRL Extroacular Muscles: Positive for: EOMI Conjunctiva: Positive for: Normal Mouth: Positive for: Moist Mucous Membranes, Other (ETT) Pharnyx: Positive for: Other (Epiglottis swollen) Neck: Positive for: Normal Range of Motion Respiratory/Chest: Positive for: Good Air Exchange. Negative for: Respiratory Distress, Accessory Muscle Use Cardiovascular: Positive for: Regular Rate and Rhythm, Normal S1, S2. Negative for: Murmurs Abdomen: Positive for: Normal Bowel Sounds. Negative for: Tenderness, Peritoneal Signs Upper Extremity: Negative for: Normal Inspection, Cyanosis, Edema Lower Extremity: Positive for: Normal Inspection, Other (Prevalon boots) Skin: Positive for: Warm, Dry Psychiatric: Positive for: Alert, Oriented x 3 - Medications Active Medications: Active Medications Generic Name Dose Route Start Last Admin Trade Name Freq PRN Reason Stop Dose Admin Dexamethasone 4 mg 12/03/17 06:00 12/04/17 05:03 Decadron Inj IVP 4 mg Q8H ALAN Administration Heparin Sodium (Porcine) 5,000 units 12/03/17 14:00 12/04/17 05:02 Heparin SC 5,000 units Q8 ALAN Administration Ceftriaxone Sodium 1 gm/ 100 mls @ 100 mls/hr 12/03/17 10:00 12/04/17 09:44 Sodium Chloride IVPB 100 mls/hr DAILY ALAN Administration Protocol Sodium Chloride 1,000 mls @ 100 mls/hr 12/03/17 03:30 12/04/17 05:00 Sodium Chloride 0.45% IV 100 mls/hr .Q10H ALAN Administration Propofol 1,000 mg in 100 mls @ 1.8 mls/hr 12/03/17 04:36 12/04/17 09:48 Diprivan IV 40 mcg/kg/min .Q24H PRN 14.4 mls/hr TITRATE PER MD ORDER Administration Protocol 5 MCG/KG/MIN Insulin Human Regular 0 unit 12/03/17 06:00 12/04/17 05:40 Novolin R SC Not Given Q6 ALAN Protocol Lorazepam 1 mg 12/03/17 04:50 12/03/17 05:30 Ativan IVP 1 mg Q6H PRN Administration Anxiety Pantoprazole Sodium 40 mg 12/03/17 10:00 12/04/17 09:51 Protonix Inj IVP 40 mg DAILY ALAN Administration Pneumococcal Polyvalent Vaccine 0.5 ml 12/05/17 10:00 Pneumovax 23 Vaccine IM 12/05/17 10:01 .ONCE ONE - Patient Studies Lab Studies: Microbiology Studies 12/03/17 05:08 MRSA Culture (Admit) - Final Nose MRSA NOT DETECTED 12/03/17 09:13 Group A Strep Throat Culture - Final Throat NO BETA STREP GROUP A ISOLATED. 12/03/17 07:34 Urine Culture - Final Urine,Carlos No Growth (<1,000 CFU/ML) 12/03/17 02:41 Blood Culture - Preliminary Blood NO GROWTH AFTER 24 HOURS 12/03/17 02:41 Blood Culture - Preliminary Blood NO GROWTH AFTER 24 HOURS Lab Studies 12/04/17 12/04/17 12/04/17 Range/Units 11:36 05:58 05:58 WBC (4.8-10.8) K/uL RBC (4.40-5.90) Mil/uL Hgb (12.0-18.0) g/dL Hct (35.0-51.0) % MCV (80.0-94.0) fL MCH (27.0-31.0) pg MCHC (33.0-37.0) g/dL RDW (11.5-14.5) % Plt Count (130-400) K/uL MPV (7.2-11.7) fL Neut % (Auto) (50.0-75.0) % Lymph % (Auto) (20.0-40.0) % [place] % (Auto) (0.0-10.0) % Eos % (Auto) (0.0-4.0) % Baso % (Auto) (0.0-2.0) % Neut # (Auto) (1.8-7.0) K/uL Lymph # (Auto) (1.0-4.3) K/uL [place] # (Auto) (0.0-0.8) K/uL Eos # (Auto) (0.0-0.7) K/uL Baso # (Auto) (0.0-0.2) K/uL Neutrophils % (Manual) (50-75) % Band Neutrophils % (0-2) % Lymphocytes % (Manual) (20-40) % Monocytes % (Manual) (0-10) % Platelet Estimate (NORMAL) Hypochromasia (manual) [place] Cells APTT (21-34) SECONDS Puncture Site pCO2 (35-45) mm/Hg pO2 (80-100) mm/Hg HCO3 (21-28) mmol/L ABG pH (7.35-7.45) ABG Total CO2 (22-28) mmol/L ABG O2 Saturation (95-98) % ABG Base Excess (-2.0-3.0) mmol/L ABG Hemoglobin (11.7-17.4) g/dL ABG Carboxyhemoglobin (0.5-1.5) % POC ABG HHb (Measured) (0.0-5.0) % ABG Methemoglobin (0.0-3.0) % Marlon Test A-a O2 Difference mm/Hg Respiratory Index Hgb O2 Saturation (95.0-98.0) % Vent Mode Mechanical Rate FiO2 % Tidal Volume PEEP Crit Value Called To Crit Value Called By Crit Value Read Back Blood Gas Notified Time Sodium (132-148) mmol/L Potassium (3.6-5.2) mmol/L Chloride (98-107) mmol/L Carbon Dioxide (22-30) mmol/L Anion Gap (10-20) BUN (9-20) mg/dL Creatinine (0.8-1.5) mg/dL Est GFR ( Amer) Est GFR (Non-Af Amer) POC Glucose (mg/dL) 230 H (65-110) mg/dL Random Glucose (75-110) mg/dL Hemoglobin A1c (4.2-6.5) % Calcium (8.6-10.4) mg/dl Phosphorus (2.5-4.5) mg/dL Magnesium (1.6-2.3) mg/dL Total Bilirubin (0.2-1.3) mg/dL AST (17-59) U/L ALT (21-72) U/L Alkaline Phosphatase (38-126) U/L Total Protein (6.3-8.3) g/dL Albumin (3.5-5.0) g/dL Globulin (2.2-3.9) gm/dL Albumin/Globulin Ratio (1.0-2.1) Triglycerides 111 (0-149) mg/dL Cholesterol 159 (0-199) mg/dL LDL Cholesterol Direct 79 (0-129) mg/dL HDL Cholesterol 40 (30-70) mg/dL Free T4 2.09 (0.78-2.19) ng/dL TSH 3rd Generation 0.16 L (0.46-4.68) mIU/L VZV IgG Antibody (POSITIVE) 12/04/17 12/04/17 12/04/17 Range/Units 05:58 05:55 05:55 WBC (4.8-10.8) K/uL RBC (4.40-5.90) Mil/uL Hgb (12.0-18.0) g/dL Hct (35.0-51.0) % MCV (80.0-94.0) fL MCH (27.0-31.0) pg MCHC (33.0-37.0) g/dL RDW (11.5-14.5) % Plt Count (130-400) K/uL MPV (7.2-11.7) fL Neut % (Auto) (50.0-75.0) % Lymph % (Auto) (20.0-40.0) % [place] % (Auto) (0.0-10.0) % Eos % (Auto) (0.0-4.0) % Baso % (Auto) (0.0-2.0) % Neut # (Auto) (1.8-7.0) K/uL Lymph # (Auto) (1.0-4.3) K/uL [place] # (Auto) (0.0-0.8) K/uL Eos # (Auto) (0.0-0.7) K/uL Baso # (Auto) (0.0-0.2) K/uL Neutrophils % (Manual) (50-75) % Band Neutrophils % (0-2) % Lymphocytes % (Manual) (20-40) % Monocytes % (Manual) (0-10) % Platelet Estimate (NORMAL) Hypochromasia (manual) [place] Cells APTT 36 H (21-34) SECONDS Puncture Site pCO2 (35-45) mm/Hg pO2 (80-100) mm/Hg HCO3 (21-28) mmol/L ABG pH (7.35-7.45) ABG Total CO2 (22-28) mmol/L ABG O2 Saturation (95-98) % ABG Base Excess (-2.0-3.0) mmol/L ABG Hemoglobin (11.7-17.4) g/dL ABG Carboxyhemoglobin (0.5-1.5) % POC ABG HHb (Measured) (0.0-5.0) % ABG Methemoglobin (0.0-3.0) % Marlon Test A-a O2 Difference mm/Hg Respiratory Index Hgb O2 Saturation (95.0-98.0) % Vent Mode Mechanical Rate FiO2 % Tidal Volume PEEP Crit Value Called To Crit Value Called By Crit Value Read Back Blood Gas Notified Time Sodium 134 (132-148) mmol/L Potassium 4.6 (3.6-5.2) mmol/L Chloride 105 (98-107) mmol/L Carbon Dioxide 18 L (22-30) mmol/L Anion Gap 16 (10-20) BUN 38 H (9-20) mg/dL Creatinine 1.6 H (0.8-1.5) mg/dL Est GFR ( Amer) 53 Est GFR (Non-Af Amer) 44 POC Glucose (mg/dL) (65-110) mg/dL Random Glucose 200 H (75-110) mg/dL Hemoglobin A1c 7.0 H (4.2-6.5) % Calcium 7.2 L (8.6-10.4) mg/dl Phosphorus 6.8 H (2.5-4.5) mg/dL Magnesium 2.0 (1.6-2.3) mg/dL Total Bilirubin 0.3 (0.2-1.3) mg/dL AST 18 (17-59) U/L ALT 13 L D (21-72) U/L Alkaline Phosphatase 59 (38-126) U/L Total Protein 5.9 L (6.3-8.3) g/dL Albumin 2.8 L (3.5-5.0) g/dL Globulin 3.1 (2.2-3.9) gm/dL Albumin/Globulin Ratio 0.9 L (1.0-2.1) Triglycerides (0-149) mg/dL Cholesterol (0-199) mg/dL LDL Cholesterol Direct (0-129) mg/dL HDL Cholesterol (30-70) mg/dL Free T4 (0.78-2.19) ng/dL TSH 3rd Generation (0.46-4.68) mIU/L VZV IgG Antibody (POSITIVE) 12/04/17 12/04/17 12/04/17 Range/Units 05:55 05:17 04:55 WBC 6.8 (4.8-10.8) K/uL RBC 2.90 L (4.40-5.90) Mil/uL Hgb 8.6 L (12.0-18.0) g/dL Hct 24.8 L (35.0-51.0) % MCV 85.7 (80.0-94.0) fL MCH 29.8 (27.0-31.0) pg MCHC 34.8 (33.0-37.0) g/dL RDW 13.3 (11.5-14.5) % Plt Count 210 (130-400) K/uL MPV 9.7 (7.2-11.7) fL Neut % (Auto) 91.0 H (50.0-75.0) % Lymph % (Auto) 4.9 L (20.0-40.0) % [place] % (Auto) 4.0 (0.0-10.0) % Eos % (Auto) 0.0 (0.0-4.0) % Baso % (Auto) 0.1 (0.0-2.0) % Neut # (Auto) 6.2 (1.8-7.0) K/uL Lymph # (Auto) 0.3 L (1.0-4.3) K/uL [place] # (Auto) 0.3 (0.0-0.8) K/uL Eos # (Auto) 0.0 (0.0-0.7) K/uL Baso # (Auto) 0.0 (0.0-0.2) K/uL Neutrophils % (Manual) 94 H (50-75) % Band Neutrophils % 2 (0-2) % Lymphocytes % (Manual) 1 L (20-40) % Monocytes % (Manual) 3 (0-10) % Platelet Estimate Normal (NORMAL) Hypochromasia (manual) Slight Javier Cells Slight APTT (21-34) SECONDS Puncture Site Rba pCO2 34 L (35-45) mm/Hg pO2 203 H (80-100) mm/Hg HCO3 19.6 L (21-28) mmol/L ABG pH 7.34 L (7.35-7.45) ABG Total CO2 19.3 L (22-28) mmol/L ABG O2 Saturation 98.9 H (95-98) % ABG Base Excess -6.8 L (-2.0-3.0) mmol/L ABG Hemoglobin 8.3 L (11.7-17.4) g/dL ABG Carboxyhemoglobin 1.0 (0.5-1.5) % POC ABG HHb (Measured) 1.1 (0.0-5.0) % ABG Methemoglobin 0.9 (0.0-3.0) % Marlon Test Pos A-a O2 Difference 40.0 mm/Hg Respiratory Index 0.2 Hgb O2 Saturation 97.0 (95.0-98.0) % Vent Mode Prvc Mechanical Rate 14 FiO2 40.0 % Tidal Volume 450 PEEP 5 Crit Value Called To Simon sanches md Crit Value Called By R alert container washer Crit Value Read Back Y Blood Gas Notified Time 548 Sodium (132-148) mmol/L Potassium (3.6-5.2) mmol/L Chloride (98-107) mmol/L Carbon Dioxide (22-30) mmol/L Anion Gap (10-20) BUN (9-20) mg/dL Creatinine (0.8-1.5) mg/dL Est GFR ( Amer) Est GFR (Non-Af Amer) POC Glucose (mg/dL) 187 H (65-110) mg/dL Random Glucose (75-110) mg/dL Hemoglobin A1c (4.2-6.5) % Calcium (8.6-10.4) mg/dl Phosphorus (2.5-4.5) mg/dL Magnesium (1.6-2.3) mg/dL Total Bilirubin (0.2-1.3) mg/dL AST (17-59) U/L ALT (21-72) U/L Alkaline Phosphatase (38-126) U/L Total Protein (6.3-8.3) g/dL Albumin (3.5-5.0) g/dL Globulin (2.2-3.9) gm/dL Albumin/Globulin Ratio (1.0-2.1) Triglycerides (0-149) mg/dL Cholesterol (0-199) mg/dL LDL Cholesterol Direct (0-129) mg/dL HDL Cholesterol (30-70) mg/dL Free T4 (0.78-2.19) ng/dL TSH 3rd Generation (0.46-4.68) mIU/L VZV IgG Antibody (POSITIVE) 12/03/17 12/03/17 12/03/17 Range/Units 23:45 17:36 10:56 WBC (4.8-10.8) K/uL RBC (4.40-5.90) Mil/uL Hgb (12.0-18.0) g/dL Hct (35.0-51.0) % MCV (80.0-94.0) fL MCH (27.0-31.0) pg MCHC (33.0-37.0) g/dL RDW (11.5-14.5) % Plt Count (130-400) K/uL MPV (7.2-11.7) fL Neut % (Auto) (50.0-75.0) % Lymph % (Auto) (20.0-40.0) % [place] % (Auto) (0.0-10.0) % Eos % (Auto) (0.0-4.0) % Baso % (Auto) (0.0-2.0) % Neut # (Auto) (1.8-7.0) K/uL Lymph # (Auto) (1.0-4.3) K/uL [place] # (Auto) (0.0-0.8) K/uL Eos # (Auto) (0.0-0.7) K/uL Baso # (Auto) (0.0-0.2) K/uL Neutrophils % (Manual) (50-75) % Band Neutrophils % (0-2) % Lymphocytes % (Manual) (20-40) % Monocytes % (Manual) (0-10) % Platelet Estimate (NORMAL) Hypochromasia (manual) [place] Cells APTT (21-34) SECONDS Puncture Site pCO2 (35-45) mm/Hg pO2 (80-100) mm/Hg HCO3 (21-28) mmol/L ABG pH (7.35-7.45) ABG Total CO2 (22-28) mmol/L ABG O2 Saturation (95-98) % ABG Base Excess (-2.0-3.0) mmol/L ABG Hemoglobin (11.7-17.4) g/dL ABG Carboxyhemoglobin (0.5-1.5) % POC ABG HHb (Measured) (0.0-5.0) % ABG Methemoglobin (0.0-3.0) % Marlon Test A-a O2 Difference mm/Hg Respiratory Index Hgb O2 Saturation (95.0-98.0) % Vent Mode Mechanical Rate FiO2 % Tidal Volume PEEP Crit Value Called To Crit Value Called By Crit Value Read Back Blood Gas Notified Time Sodium (132-148) mmol/L Potassium (3.6-5.2) mmol/L Chloride (98-107) mmol/L Carbon Dioxide (22-30) mmol/L Anion Gap (10-20) BUN (9-20) mg/dL Creatinine (0.8-1.5) mg/dL Est GFR ( Amer) Est GFR (Non-Af Amer) POC Glucose (mg/dL) 149 H 179 H (65-110) mg/dL Random Glucose (75-110) mg/dL Hemoglobin A1c (4.2-6.5) % Calcium (8.6-10.4) mg/dl Phosphorus (2.5-4.5) mg/dL Magnesium (1.6-2.3) mg/dL Total Bilirubin (0.2-1.3) mg/dL AST (17-59) U/L ALT (21-72) U/L Alkaline Phosphatase (38-126) U/L Total Protein (6.3-8.3) g/dL Albumin (3.5-5.0) g/dL Globulin (2.2-3.9) gm/dL Albumin/Globulin Ratio (1.0-2.1) Triglycerides (0-149) mg/dL Cholesterol (0-199) mg/dL LDL Cholesterol Direct (0-129) mg/dL HDL Cholesterol (30-70) mg/dL Free T4 (0.78-2.19) ng/dL TSH 3rd Generation (0.46-4.68) mIU/L VZV IgG Antibody Positive (POSITIVE) Laboratory Results - last 24 hr 12/03/17 12/03/17 12/03/17 10:56 17:36 23:45 WBC RBC Hgb Hct MCV MCH MCHC RDW Plt Count MPV Neut % (Auto) Lymph % (Auto) [place] % (Auto) Eos % (Auto) Baso % (Auto) Neut # (Auto) Lymph # (Auto) [place] # (Auto) Eos # (Auto) Baso # (Auto) Neutrophils % (Manual) Band Neutrophils % Lymphocytes % (Manual) Monocytes % (Manual) Platelet Estimate Hypochromasia (manual) [place] Cells APTT Puncture Site pCO2 pO2 HCO3 ABG pH ABG Total CO2 ABG O2 Saturation ABG Base Excess ABG Hemoglobin ABG Carboxyhemoglobin POC ABG HHb (Measured) ABG Methemoglobin Marlon Test A-a O2 Difference Respiratory Index Hgb O2 Saturation Vent Mode Mechanical Rate FiO2 Tidal Volume PEEP Crit Value Called To Crit Value Called By Crit Value Read Back Blood Gas Notified Time Sodium Potassium Chloride Carbon Dioxide Anion Gap BUN Creatinine Est GFR ( Amer) Est GFR (Non-Af Amer) POC Glucose (mg/dL) 179 H 149 H Random Glucose Hemoglobin A1c Calcium Phosphorus Magnesium Total Bilirubin AST ALT Alkaline Phosphatase Total Protein Albumin Globulin Albumin/Globulin Ratio Triglycerides Cholesterol LDL Cholesterol Direct HDL Cholesterol Free T4 TSH 3rd Generation VZV IgG Antibody Positive 12/04/17 12/04/17 12/04/17 04:55 05:17 05:55 WBC 6.8 RBC 2.90 L Hgb 8.6 L Hct 24.8 L MCV 85.7 MCH 29.8 MCHC 34.8 RDW 13.3 Plt Count 210 MPV 9.7 Neut % (Auto) 91.0 H Lymph % (Auto) 4.9 L [place] % (Auto) 4.0 Eos % (Auto) 0.0 Baso % (Auto) 0.1 Neut # (Auto) 6.2 Lymph # (Auto) 0.3 L [place] # (Auto) 0.3 Eos # (Auto) 0.0 Baso # (Auto) 0.0 Neutrophils % (Manual) 94 H Band Neutrophils % 2 Lymphocytes % (Manual) 1 L Monocytes % (Manual) 3 Platelet Estimate Normal Hypochromasia (manual) Slight [place] Cells Slight APTT Puncture Site Rba pCO2 34 L pO2 203 H HCO3 19.6 L ABG pH 7.34 L ABG Total CO2 19.3 L ABG O2 Saturation 98.9 H ABG Base Excess -6.8 L ABG Hemoglobin 8.3 L ABG Carboxyhemoglobin 1.0 POC ABG HHb (Measured) 1.1 ABG Methemoglobin 0.9 Marlon Test Pos A-a O2 Difference 40.0 Respiratory Index 0.2 Hgb O2 Saturation 97.0 Vent Mode Prvc Mechanical Rate 14 FiO2 40.0 Tidal Volume 450 PEEP 5 Crit Value Called To Simon sanches md Crit Value Called By R alert container washer Crit Value Read Back Y Blood Gas Notified Time 548 Sodium Potassium Chloride Carbon Dioxide Anion Gap BUN Creatinine Est GFR ( Amer) Est GFR (Non-Af Amer) POC Glucose (mg/dL) 187 H Random Glucose Hemoglobin A1c Calcium Phosphorus Magnesium Total Bilirubin AST ALT Alkaline Phosphatase Total Protein Albumin Globulin Albumin/Globulin Ratio Triglycerides Cholesterol LDL Cholesterol Direct HDL Cholesterol Free T4 TSH 3rd Generation VZV IgG Antibody 12/04/17 12/04/17 12/04/17 05:55 05:55 05:58 WBC RBC Hgb Hct MCV MCH MCHC RDW Plt Count MPV Neut % (Auto) Lymph % (Auto) [place] % (Auto) Eos % (Auto) Baso % (Auto) Neut # (Auto) Lymph # (Auto) [place] # (Auto) Eos # (Auto) Baso # (Auto) Neutrophils % (Manual) Band Neutrophils % Lymphocytes % (Manual) Monocytes % (Manual) Platelet Estimate Hypochromasia (manual) [place]avier Cells APTT 36 H Puncture Site pCO2 pO2 HCO3 ABG pH ABG Total CO2 ABG O2 Saturation ABG Base Excess ABG Hemoglobin ABG Carboxyhemoglobin POC ABG HHb (Measured) ABG Methemoglobin Marlon Test A-a O2 Difference Respiratory Index Hgb O2 Saturation Vent Mode Mechanical Rate FiO2 Tidal Volume PEEP Crit Value Called To Crit Value Called By Crit Value Read Back Blood Gas Notified Time Sodium 134 Potassium 4.6 Chloride 105 Carbon Dioxide 18 L Anion Gap 16 BUN 38 H Creatinine 1.6 H Est GFR ( Amer) 53 Est GFR (Non-Af Amer) 44 POC Glucose (mg/dL) Random Glucose 200 H Hemoglobin A1c 7.0 H Calcium 7.2 L Phosphorus 6.8 H Magnesium 2.0 Total Bilirubin 0.3 AST 18 ALT 13 L D Alkaline Phosphatase 59 Total Protein 5.9 L Albumin 2.8 L Globulin 3.1 Albumin/Globulin Ratio 0.9 L Triglycerides Cholesterol LDL Cholesterol Direct HDL Cholesterol Free T4 TSH 3rd Generation VZV IgG Antibody 12/04/17 12/04/17 12/04/17 05:58 05:58 11:36 WBC RBC Hgb Hct MCV MCH MCHC RDW Plt Count MPV Neut % (Auto) Lymph % (Auto) [place] % (Auto) Eos % (Auto) Baso % (Auto) Neut # (Auto) Lymph # (Auto) [place] # (Auto) Eos # (Auto) Baso # (Auto) Neutrophils % (Manual) Band Neutrophils % Lymphocytes % (Manual) Monocytes % (Manual) Platelet Estimate Hypochromasia (manual) [place] Cells APTT Puncture Site pCO2 pO2 HCO3 ABG pH ABG Total CO2 ABG O2 Saturation ABG Base Excess ABG Hemoglobin ABG Carboxyhemoglobin POC ABG HHb (Measured) ABG Methemoglobin Marlon Test A-a O2 Difference Respiratory Index Hgb O2 Saturation Vent Mode Mechanical Rate FiO2 Tidal Volume PEEP Crit Value Called To Crit Value Called By Crit Value Read Back Blood Gas Notified Time Sodium Potassium Chloride Carbon Dioxide Anion Gap BUN Creatinine Est GFR ( Amer) Est GFR (Non-Af Amer) POC Glucose (mg/dL) 230 H Random Glucose Hemoglobin A1c Calcium Phosphorus Magnesium Total Bilirubin AST ALT Alkaline Phosphatase Total Protein Albumin Globulin Albumin/Globulin Ratio Triglycerides 111 Cholesterol 159 LDL Cholesterol Direct 79 HDL Cholesterol 40 Free T4 2.09 TSH 3rd Generation 0.16 L VZV IgG Antibody Fingerstick Blood Sugar Results: 187 Critical Care Progress Note - Nutrition Nutrition: Nutrition Category Date Time Status NPO Diet [DIET] Diets 12/03/17 Breakfast Active Assessment/Plan - Assessment and Plan (Free Text) Assessment: Patient is a 67 year old male with past medical history of HTN, DM, who presented with worsening shortness of breath. Patient found to have acute epiglottis with airway obstruction. Was intubated for airway protection. Currently being monitored in the ICU. Neurology: -Intubated and sedated on propofol -AAOx3, answers questions appropriately -Plan for possible extubation tomorrow -Will continue to monitor closely in the ICU Respiratory: -Patient with acute epiglottis with airway obstruction -Patient was intubated for airway -CT Soft Tissue Neck with contrast (12/02/17): massively enlarged epiglottis secondary to likely acute infectious/inflammatory process with mass effect upon airway although airway is patent, rounded fluid density along the anterior aspect of C3-4 that is possible early developing retropharyngeal abscess. -Chest xray (12/04/17): no active disease ENT: -Continue Decadron 4mg IV Q8H -ENT on consult, Dr Graves, help appreciated Cardiovascular: -No acute issues at this time Endocrine: -Patient with history of Diabetes Mellitus -Hgba1c: 7.0 -Will hold metformin at this time -Accuchecks Q6H Infectious Disease: -Antibiotics: Ceftriaxone 1 gm IV Q24H, Clindamycin 300 mg IV Q6H -F/U Herpes Simplex Virus 1/2, Xiao Arsmtrong Virus, parainfluenza, varicella -Throat cx: no group A strep isolated -Blood cx showing no growth x 2 days -ID on consult, Dr Perales, help appreciated GI/DVT ppx: Heparin 5000 units SC 8H Protonix 40mg IV q daily <Yin Weinstein - Last Filed: 12/04/17 19:17> CCU Objective - Vital Signs / Intake & Output Vital Signs (Last 4 hours): Vital Signs Temp Pulse Resp BP Pulse Ox 12/04/17 18:02 70 15 110/68 100 12/04/17 18:00 71 17 110/68 99 12/04/17 17:02 62 14 99 12/04/17 17:00 69 18 112/62 98 12/04/17 16:02 62 15 100 12/04/17 16:00 97 F L 71 17 118/67 99 Intake and Output (Last 8hrs): Intake & Output 12/04/17 12/04/17 12/04/17 06:59 14:59 22:59 Intake Total 801.0 1055.7 539.2 Output Total 300 380 210 Balance 501.0 675.7 329.2 Weight 147 lb Intake: IV 100 100 100 Intake, IV Amount 701.0 955.7 439.2 Left Antecubital 101.0 155.7 89.2 Left Hand 600 800 350 Output: Urine 300 380 210 Urethral (Carlos) 300 380 210 Stool 0 - Medications Active Medications: Active Medications Generic Name Dose Route Start Last Admin Trade Name Freq PRN Reason Stop Dose Admin Dexamethasone 4 mg 12/03/17 06:00 12/04/17 13:14 Decadron Inj IVP 4 mg Q8H ALAN Administration Heparin Sodium (Porcine) 5,000 units 12/03/17 14:00 12/04/17 13:15 Heparin SC 5,000 units Q8 ALAN Administration Sodium Chloride 1,000 mls @ 100 mls/hr 12/03/17 03:30 12/04/17 16:36 Sodium Chloride 0.45% IV 100 mls/hr .Q10H ALAN Administration Propofol 1,000 mg in 100 mls @ 1.8 mls/hr 12/03/17 04:36 12/04/17 17:58 Diprivan IV 61.94 mcg/kg/min .Q24H PRN 22.3 mls/hr TITRATE PER MD ORDER Titration Protocol 5 MCG/KG/MIN Ceftriaxone Sodium 50 mls @ 100 mls/hr 12/04/17 20:00 Rocephin Iv 1 Gm Duplex IVPB Q12H ALAN Protocol Clindamycin Phosphate 600 mg in 50 mls @ 100 mls/hr 12/04/17 16:00 12/04/17 16:43 Cleocin In Normal Saline IVPB 100 mls/hr Q8H ALAN Administration Protocol Insulin Human Regular 0 unit 12/03/17 06:00 12/04/17 17:59 Novolin R SC 2 unit Q6 ALAN Administration Protocol Lorazepam 1 mg 12/03/17 04:50 12/03/17 05:30 Ativan IVP 1 mg Q6H PRN Administration Anxiety Pantoprazole Sodium 40 mg 12/03/17 10:00 12/04/17 09:51 Protonix Inj IVP 40 mg DAILY ALAN Administration Pneumococcal Polyvalent Vaccine 0.5 ml 12/05/17 10:00 Pneumovax 23 Vaccine IM 12/05/17 10:01 .ONCE ONE - Patient Studies Lab Studies: Microbiology Studies 12/03/17 05:08 MRSA Culture (Admit) - Final Nose MRSA NOT DETECTED 12/03/17 09:13 Group A Strep Throat Culture - Final Throat NO BETA STREP GROUP A ISOLATED. 12/03/17 07:34 Urine Culture - Final Urine,Carlos No Growth (<1,000 CFU/ML) 12/03/17 02:41 Blood Culture - Preliminary Blood NO GROWTH AFTER 24 HOURS 12/03/17 02:41 Blood Culture - Preliminary Blood NO GROWTH AFTER 24 HOURS Lab Studies 12/04/17 12/04/17 12/04/17 Range/Units 17:55 11:36 05:58 WBC (4.8-10.8) K/uL RBC (4.40-5.90) Mil/uL Hgb (12.0-18.0) g/dL Hct (35.0-51.0) % MCV (80.0-94.0) fL MCH (27.0-31.0) pg MCHC (33.0-37.0) g/dL RDW (11.5-14.5) % Plt Count (130-400) K/uL MPV (7.2-11.7) fL Neut % (Auto) (50.0-75.0) % Lymph % (Auto) (20.0-40.0) % [place] % (Auto) (0.0-10.0) % Eos % (Auto) (0.0-4.0) % Baso % (Auto) (0.0-2.0) % Neut # (Auto) (1.8-7.0) K/uL Lymph # (Auto) (1.0-4.3) K/uL [place] # (Auto) (0.0-0.8) K/uL Eos # (Auto) (0.0-0.7) K/uL Baso # (Auto) (0.0-0.2) K/uL Neutrophils % (Manual) (50-75) % Band Neutrophils % (0-2) % Lymphocytes % (Manual) (20-40) % Monocytes % (Manual) (0-10) % Platelet Estimate (NORMAL) Hypochromasia (manual) Javier Cells APTT (21-34) SECONDS Puncture Site pCO2 (35-45) mm/Hg pO2 (80-100) mm/Hg HCO3 (21-28) mmol/L ABG pH (7.35-7.45) ABG Total CO2 (22-28) mmol/L ABG O2 Saturation (95-98) % ABG Base Excess (-2.0-3.0) mmol/L ABG Hemoglobin (11.7-17.4) g/dL ABG Carboxyhemoglobin (0.5-1.5) % POC ABG HHb (Measured) (0.0-5.0) % ABG Methemoglobin (0.0-3.0) % Marlon Test A-a O2 Difference mm/Hg Respiratory Index Hgb O2 Saturation (95.0-98.0) % Vent Mode Mechanical Rate FiO2 % Tidal Volume PEEP Crit Value Called To Crit Value Called By Crit Value Read Back Blood Gas Notified Time Sodium (132-148) mmol/L Potassium (3.6-5.2) mmol/L Chloride (98-107) mmol/L Carbon Dioxide (22-30) mmol/L Anion Gap (10-20) BUN (9-20) mg/dL Creatinine (0.8-1.5) mg/dL Est GFR ( Amer) Est GFR (Non-Af Amer) POC Glucose (mg/dL) 224 H 230 H (65-110) mg/dL Random Glucose (75-110) mg/dL Hemoglobin A1c (4.2-6.5) % Calcium (8.6-10.4) mg/dl Phosphorus (2.5-4.5) mg/dL Magnesium (1.6-2.3) mg/dL Total Bilirubin (0.2-1.3) mg/dL AST (17-59) U/L ALT (21-72) U/L Alkaline Phosphatase (38-126) U/L Total Protein (6.3-8.3) g/dL Albumin (3.5-5.0) g/dL Globulin (2.2-3.9) gm/dL Albumin/Globulin Ratio (1.0-2.1) Triglycerides (0-149) mg/dL Cholesterol (0-199) mg/dL LDL Cholesterol Direct (0-129) mg/dL HDL Cholesterol (30-70) mg/dL Free T4 2.09 (0.78-2.19) ng/dL TSH 3rd Generation (0.46-4.68) mIU/L EBV Capsid Ag IgG Ab U/mL EBV Capsid Ag IgM Ab U/mL EBV Nuclear Antigen Ab U/mL EBV Interpretation 12/04/17 12/04/17 12/04/17 Range/Units 05:58 05:58 05:55 WBC (4.8-10.8) K/uL RBC (4.40-5.90) Mil/uL Hgb (12.0-18.0) g/dL Hct (35.0-51.0) % MCV (80.0-94.0) fL MCH (27.0-31.0) pg MCHC (33.0-37.0) g/dL RDW (11.5-14.5) % Plt Count (130-400) K/uL MPV (7.2-11.7) fL Neut % (Auto) (50.0-75.0) % Lymph % (Auto) (20.0-40.0) % [place] % (Auto) (0.0-10.0) % Eos % (Auto) (0.0-4.0) % Baso % (Auto) (0.0-2.0) % Neut # (Auto) (1.8-7.0) K/uL Lymph # (Auto) (1.0-4.3) K/uL [place] # (Auto) (0.0-0.8) K/uL Eos # (Auto) (0.0-0.7) K/uL Baso # (Auto) (0.0-0.2) K/uL Neutrophils % (Manual) (50-75) % Band Neutrophils % (0-2) % Lymphocytes % (Manual) (20-40) % Monocytes % (Manual) (0-10) % Platelet Estimate (NORMAL) Hypochromasia (manual) Javier Cells APTT 36 H (21-34) SECONDS Puncture Site pCO2 (35-45) mm/Hg pO2 (80-100) mm/Hg HCO3 (21-28) mmol/L ABG pH (7.35-7.45) ABG Total CO2 (22-28) mmol/L ABG O2 Saturation (95-98) % ABG Base Excess (-2.0-3.0) mmol/L ABG Hemoglobin (11.7-17.4) g/dL ABG Carboxyhemoglobin (0.5-1.5) % POC ABG HHb (Measured) (0.0-5.0) % ABG Methemoglobin (0.0-3.0) % Marlon Test A-a O2 Difference mm/Hg Respiratory Index Hgb O2 Saturation (95.0-98.0) % Vent Mode Mechanical Rate FiO2 % Tidal Volume PEEP Crit Value Called To Crit Value Called By Crit Value Read Back Blood Gas Notified Time Sodium 134 (132-148) mmol/L Potassium 4.6 (3.6-5.2) mmol/L Chloride 105 (98-107) mmol/L Carbon Dioxide 18 L (22-30) mmol/L Anion Gap 16 (10-20) BUN 38 H (9-20) mg/dL Creatinine 1.6 H (0.8-1.5) mg/dL Est GFR ( Amer) 53 Est GFR (Non-Af Amer) 44 POC Glucose (mg/dL) (65-110) mg/dL Random Glucose 200 H (75-110) mg/dL Hemoglobin A1c (4.2-6.5) % Calcium 7.2 L (8.6-10.4) mg/dl Phosphorus 6.8 H (2.5-4.5) mg/dL Magnesium 2.0 (1.6-2.3) mg/dL Total Bilirubin 0.3 (0.2-1.3) mg/dL AST 18 (17-59) U/L ALT 13 L D (21-72) U/L Alkaline Phosphatase 59 (38-126) U/L Total Protein 5.9 L (6.3-8.3) g/dL Albumin 2.8 L (3.5-5.0) g/dL Globulin 3.1 (2.2-3.9) gm/dL Albumin/Globulin Ratio 0.9 L (1.0-2.1) Triglycerides 111 (0-149) mg/dL Cholesterol 159 (0-199) mg/dL LDL Cholesterol Direct 79 (0-129) mg/dL HDL Cholesterol 40 (30-70) mg/dL Free T4 (0.78-2.19) ng/dL TSH 3rd Generation 0.16 L (0.46-4.68) mIU/L EBV Capsid Ag IgG Ab U/mL EBV Capsid Ag IgM Ab U/mL EBV Nuclear Antigen Ab U/mL EBV Interpretation 12/04/17 12/04/17 12/04/17 Range/Units 05:55 05:55 05:17 WBC 6.8 (4.8-10.8) K/uL RBC 2.90 L (4.40-5.90) Mil/uL Hgb 8.6 L (12.0-18.0) g/dL Hct 24.8 L (35.0-51.0) % MCV 85.7 (80.0-94.0) fL MCH 29.8 (27.0-31.0) pg MCHC 34.8 (33.0-37.0) g/dL RDW 13.3 (11.5-14.5) % Plt Count 210 (130-400) K/uL MPV 9.7 (7.2-11.7) fL Neut % (Auto) 91.0 H (50.0-75.0) % Lymph % (Auto) 4.9 L (20.0-40.0) % [place] % (Auto) 4.0 (0.0-10.0) % Eos % (Auto) 0.0 (0.0-4.0) % Baso % (Auto) 0.1 (0.0-2.0) % Neut # (Auto) 6.2 (1.8-7.0) K/uL Lymph # (Auto) 0.3 L (1.0-4.3) K/uL [place] # (Auto) 0.3 (0.0-0.8) K/uL Eos # (Auto) 0.0 (0.0-0.7) K/uL Baso # (Auto) 0.0 (0.0-0.2) K/uL Neutrophils % (Manual) 94 H (50-75) % Band Neutrophils % 2 (0-2) % Lymphocytes % (Manual) 1 L (20-40) % Monocytes % (Manual) 3 (0-10) % Platelet Estimate Normal (NORMAL) Hypochromasia (manual) Slight [place] Cells Slight APTT (21-34) SECONDS Puncture Site pCO2 (35-45) mm/Hg pO2 (80-100) mm/Hg HCO3 (21-28) mmol/L ABG pH (7.35-7.45) ABG Total CO2 (22-28) mmol/L ABG O2 Saturation (95-98) % ABG Base Excess (-2.0-3.0) mmol/L ABG Hemoglobin (11.7-17.4) g/dL ABG Carboxyhemoglobin (0.5-1.5) % POC ABG HHb (Measured) (0.0-5.0) % ABG Methemoglobin (0.0-3.0) % Marlon Test A-a O2 Difference mm/Hg Respiratory Index Hgb O2 Saturation (95.0-98.0) % Vent Mode Mechanical Rate FiO2 % Tidal Volume PEEP Crit Value Called To Crit Value Called By Crit Value Read Back Blood Gas Notified Time Sodium (132-148) mmol/L Potassium (3.6-5.2) mmol/L Chloride (98-107) mmol/L Carbon Dioxide (22-30) mmol/L Anion Gap (10-20) BUN (9-20) mg/dL Creatinine (0.8-1.5) mg/dL Est GFR ( Amer) Est GFR (Non-Af Amer) POC Glucose (mg/dL) 187 H (65-110) mg/dL Random Glucose (75-110) mg/dL Hemoglobin A1c 7.0 H (4.2-6.5) % Calcium (8.6-10.4) mg/dl Phosphorus (2.5-4.5) mg/dL Magnesium (1.6-2.3) mg/dL Total Bilirubin (0.2-1.3) mg/dL AST (17-59) U/L ALT (21-72) U/L Alkaline Phosphatase (38-126) U/L Total Protein (6.3-8.3) g/dL Albumin (3.5-5.0) g/dL Globulin (2.2-3.9) gm/dL Albumin/Globulin Ratio (1.0-2.1) Triglycerides (0-149) mg/dL Cholesterol (0-199) mg/dL LDL Cholesterol Direct (0-129) mg/dL HDL Cholesterol (30-70) mg/dL Free T4 (0.78-2.19) ng/dL TSH 3rd Generation (0.46-4.68) mIU/L EBV Capsid Ag IgG Ab U/mL EBV Capsid Ag IgM Ab U/mL EBV Nuclear Antigen Ab U/mL EBV Interpretation 12/04/17 12/03/17 12/03/17 Range/Units 04:55 23:45 09:11 WBC (4.8-10.8) K/uL RBC (4.40-5.90) Mil/uL Hgb (12.0-18.0) g/dL Hct (35.0-51.0) % MCV (80.0-94.0) fL MCH (27.0-31.0) pg MCHC (33.0-37.0) g/dL RDW (11.5-14.5) % Plt Count (130-400) K/uL MPV (7.2-11.7) fL Neut % (Auto) (50.0-75.0) % Lymph % (Auto) (20.0-40.0) % [place] % (Auto) (0.0-10.0) % Eos % (Auto) (0.0-4.0) % Baso % (Auto) (0.0-2.0) % Neut # (Auto) (1.8-7.0) K/uL Lymph # (Auto) (1.0-4.3) K/uL [place] # (Auto) (0.0-0.8) K/uL Eos # (Auto) (0.0-0.7) K/uL Baso # (Auto) (0.0-0.2) K/uL Neutrophils % (Manual) (50-75) % Band Neutrophils % (0-2) % Lymphocytes % (Manual) (20-40) % Monocytes % (Manual) (0-10) % Platelet Estimate (NORMAL) Hypochromasia (manual) [place] Cells APTT (21-34) SECONDS Puncture Site Rba pCO2 34 L (35-45) mm/Hg pO2 203 H (80-100) mm/Hg HCO3 19.6 L (21-28) mmol/L ABG pH 7.34 L (7.35-7.45) ABG Total CO2 19.3 L (22-28) mmol/L ABG O2 Saturation 98.9 H (95-98) % ABG Base Excess -6.8 L (-2.0-3.0) mmol/L ABG Hemoglobin 8.3 L (11.7-17.4) g/dL ABG Carboxyhemoglobin 1.0 (0.5-1.5) % POC ABG HHb (Measured) 1.1 (0.0-5.0) % ABG Methemoglobin 0.9 (0.0-3.0) % Marlon Test Pos A-a O2 Difference 40.0 mm/Hg Respiratory Index 0.2 Hgb O2 Saturation 97.0 (95.0-98.0) % Vent Mode Prvc Mechanical Rate 14 FiO2 40.0 % Tidal Volume 450 PEEP 5 Crit Value Called To Simon sanches md Crit Value Called By R alert container washer Crit Value Read Back Y Blood Gas Notified Time 548 Sodium (132-148) mmol/L Potassium (3.6-5.2) mmol/L Chloride (98-107) mmol/L Carbon Dioxide (22-30) mmol/L Anion Gap (10-20) BUN (9-20) mg/dL Creatinine (0.8-1.5) mg/dL Est GFR ( Amer) Est GFR (Non-Af Amer) POC Glucose (mg/dL) 149 H (65-110) mg/dL Random Glucose (75-110) mg/dL Hemoglobin A1c (4.2-6.5) % Calcium (8.6-10.4) mg/dl Phosphorus (2.5-4.5) mg/dL Magnesium (1.6-2.3) mg/dL Total Bilirubin (0.2-1.3) mg/dL AST (17-59) U/L ALT (21-72) U/L Alkaline Phosphatase (38-126) U/L Total Protein (6.3-8.3) g/dL Albumin (3.5-5.0) g/dL Globulin (2.2-3.9) gm/dL Albumin/Globulin Ratio (1.0-2.1) Triglycerides (0-149) mg/dL Cholesterol (0-199) mg/dL LDL Cholesterol Direct (0-129) mg/dL HDL Cholesterol (30-70) mg/dL Free T4 (0.78-2.19) ng/dL TSH 3rd Generation (0.46-4.68) mIU/L EBV Capsid Ag IgG Ab 281.00 H U/mL EBV Capsid Ag IgM Ab <36.00 U/mL EBV Nuclear Antigen Ab <18.00 U/mL EBV Interpretation See note Laboratory Results - last 24 hr 12/03/17 12/03/17 12/04/17 09:11 23:45 04:55 WBC RBC Hgb Hct MCV MCH MCHC RDW Plt Count MPV Neut % (Auto) Lymph % (Auto) [place] % (Auto) Eos % (Auto) Baso % (Auto) Neut # (Auto) Lymph # (Auto) [place] # (Auto) Eos # (Auto) Baso # (Auto) Neutrophils % (Manual) Band Neutrophils % Lymphocytes % (Manual) Monocytes % (Manual) Platelet Estimate Hypochromasia (manual) Javier Cells APTT Puncture Site Rba pCO2 34 L pO2 203 H HCO3 19.6 L ABG pH 7.34 L ABG Total CO2 19.3 L ABG O2 Saturation 98.9 H ABG Base Excess -6.8 L ABG Hemoglobin 8.3 L ABG Carboxyhemoglobin 1.0 POC ABG HHb (Measured) 1.1 ABG Methemoglobin 0.9 Marlon Test Pos A-a O2 Difference 40.0 Respiratory Index 0.2 Hgb O2 Saturation 97.0 Vent Mode Prvc Mechanical Rate 14 FiO2 40.0 Tidal Volume 450 PEEP 5 Crit Value Called To Simon sanches md Crit Value Called By R alert container washer Crit Value Read Back Y Blood Gas Notified Time 548 Sodium Potassium Chloride Carbon Dioxide Anion Gap BUN Creatinine Est GFR ( Amer) Est GFR (Non-Af Amer) POC Glucose (mg/dL) 149 H Random Glucose Hemoglobin A1c Calcium Phosphorus Magnesium Total Bilirubin AST ALT Alkaline Phosphatase Total Protein Albumin Globulin Albumin/Globulin Ratio Triglycerides Cholesterol LDL Cholesterol Direct HDL Cholesterol Free T4 TSH 3rd Generation EBV Capsid Ag IgG Ab 281.00 H EBV Capsid Ag IgM Ab <36.00 EBV Nuclear Antigen Ab <18.00 EBV Interpretation See note 12/04/17 12/04/17 12/04/17 05:17 05:55 05:55 WBC 6.8 RBC 2.90 L Hgb 8.6 L Hct 24.8 L MCV 85.7 MCH 29.8 MCHC 34.8 RDW 13.3 Plt Count 210 MPV 9.7 Neut % (Auto) 91.0 H Lymph % (Auto) 4.9 L [place] % (Auto) 4.0 Eos % (Auto) 0.0 Baso % (Auto) 0.1 Neut # (Auto) 6.2 Lymph # (Auto) 0.3 L [place] # (Auto) 0.3 Eos # (Auto) 0.0 Baso # (Auto) 0.0 Neutrophils % (Manual) 94 H Band Neutrophils % 2 Lymphocytes % (Manual) 1 L Monocytes % (Manual) 3 Platelet Estimate Normal Hypochromasia (manual) Slight [place] Cells Slight APTT Puncture Site pCO2 pO2 HCO3 ABG pH ABG Total CO2 ABG O2 Saturation ABG Base Excess ABG Hemoglobin ABG Carboxyhemoglobin POC ABG HHb (Measured) ABG Methemoglobin [place] Test A-a O2 Difference Respiratory Index Hgb O2 Saturation Vent Mode Mechanical Rate FiO2 Tidal Volume PEEP Crit Value Called To Crit Value Called By Crit Value Read Back Blood Gas Notified Time Sodium Potassium Chloride Carbon Dioxide Anion Gap BUN Creatinine Est GFR ( Amer) Est GFR (Non-Af Amer) POC Glucose (mg/dL) 187 H Random Glucose Hemoglobin A1c 7.0 H Calcium Phosphorus Magnesium Total Bilirubin AST ALT Alkaline Phosphatase Total Protein Albumin Globulin Albumin/Globulin Ratio Triglycerides Cholesterol LDL Cholesterol Direct HDL Cholesterol Free T4 TSH 3rd Generation EBV Capsid Ag IgG Ab EBV Capsid Ag IgM Ab EBV Nuclear Antigen Ab EBV Interpretation 12/04/17 12/04/17 12/04/17 05:55 05:58 05:58 WBC RBC Hgb Hct MCV MCH MCHC RDW Plt Count MPV Neut % (Auto) Lymph % (Auto) [place] % (Auto) Eos % (Auto) Baso % (Auto) Neut # (Auto) Lymph # (Auto) [place] # (Auto) Eos # (Auto) Baso # (Auto) Neutrophils % (Manual) Band Neutrophils % Lymphocytes % (Manual) Monocytes % (Manual) Platelet Estimate Hypochromasia (manual) [place]avier Cells APTT 36 H Puncture Site pCO2 pO2 HCO3 ABG pH ABG Total CO2 ABG O2 Saturation ABG Base Excess ABG Hemoglobin ABG Carboxyhemoglobin POC ABG HHb (Measured) ABG Methemoglobin Marlon Test A-a O2 Difference Respiratory Index Hgb O2 Saturation Vent Mode Mechanical Rate FiO2 Tidal Volume PEEP Crit Value Called To Crit Value Called By Crit Value Read Back Blood Gas Notified Time Sodium 134 Potassium 4.6 Chloride 105 Carbon Dioxide 18 L Anion Gap 16 BUN 38 H Creatinine 1.6 H Est GFR ( Amer) 53 Est GFR (Non-Af Amer) 44 POC Glucose (mg/dL) Random Glucose 200 H Hemoglobin A1c Calcium 7.2 L Phosphorus 6.8 H Magnesium 2.0 Total Bilirubin 0.3 AST 18 ALT 13 L D Alkaline Phosphatase 59 Total Protein 5.9 L Albumin 2.8 L Globulin 3.1 Albumin/Globulin Ratio 0.9 L Triglycerides 111 Cholesterol 159 LDL Cholesterol Direct 79 HDL Cholesterol 40 Free T4 TSH 3rd Generation 0.16 L EBV Capsid Ag IgG Ab EBV Capsid Ag IgM Ab EBV Nuclear Antigen Ab EBV Interpretation 12/04/17 12/04/17 12/04/17 05:58 11:36 17:55 WBC RBC Hgb Hct MCV MCH MCHC RDW Plt Count MPV Neut % (Auto) Lymph % (Auto) [place] % (Auto) Eos % (Auto) Baso % (Auto) Neut # (Auto) Lymph # (Auto) [place] # (Auto) Eos # (Auto) Baso # (Auto) Neutrophils % (Manual) Band Neutrophils % Lymphocytes % (Manual) Monocytes % (Manual) Platelet Estimate Hypochromasia (manual) [place] Cells APTT Puncture Site pCO2 pO2 HCO3 ABG pH ABG Total CO2 ABG O2 Saturation ABG Base Excess ABG Hemoglobin ABG Carboxyhemoglobin POC ABG HHb (Measured) ABG Methemoglobin [place]lon Test A-a O2 Difference Respiratory Index Hgb O2 Saturation Vent Mode Mechanical Rate FiO2 Tidal Volume PEEP Crit Value Called To Crit Value Called By Crit Value Read Back Blood Gas Notified Time Sodium Potassium Chloride Carbon Dioxide Anion Gap BUN Creatinine Est GFR ( Amer) Est GFR (Non-Af Amer) POC Glucose (mg/dL) 230 H 224 H Random Glucose Hemoglobin A1c Calcium Phosphorus Magnesium Total Bilirubin AST ALT Alkaline Phosphatase Total Protein Albumin Globulin Albumin/Globulin Ratio Triglycerides Cholesterol LDL Cholesterol Direct HDL Cholesterol Free T4 2.09 TSH 3rd Generation EBV Capsid Ag IgG Ab EBV Capsid Ag IgM Ab EBV Nuclear Antigen Ab EBV Interpretation Critical Care Progress Note - Nutrition Nutrition: Nutrition Category Date Time Status NPO Diet [DIET] Diets 12/03/17 Breakfast Active Attending/Attestation - Attestation I have personally seen and examined this patient.: Yes I have fully participated in the care of the patient.: Yes I have reviewed all pertinent clinical information: Yes Notes (Text): 12/04/17 19:17 epiglotic swelling noted not extubated yet spoke ENT will need to recheck in am before extubation
[2017-12-04] MEDS ORDERED: SODIUM CHLORIDE 0.9% IVPB SCH (13:00)
[2017-12-04] MEDS ORDERED: CLINDAMYCIN IVPB SCH (13:00)
--- NOTE | 2017-12-04 14:20 | CP.PCM.PN ---
Subjective - Date & Time of Evaluation Date of Evaluation: 12/04/17 Time of Evaluation: 14:15 - Subjective Subjective: Medical Attending Note: Patient seen and examined at bedside. No family present at bedside. Patient is on vented, intubated, and sedated. Unable to do ROS secondary to patient's clinical condition. Patient was evaluated by ICU earlier today, per visualization of glidoscope appears swelling. Objective - Vital Signs/Intake and Output Vital Signs (last 24 hours): Temp Pulse Resp BP Pulse Ox 97.4 F L 67 14 132/86 100 12/04/17 12:00 12/04/17 13:02 12/04/17 13:02 12/04/17 13:00 12/04/17 13:02 Intake and Output: 12/04/17 12/04/17 06:59 18:59 Intake Total 1359.0 933.4 Output Total 500 Balance 859.0 933.4 - Medications Medications: Current Medications Dexamethasone (Decadron Inj) 4 mg IVP Q8H [facility] Last Admin: 12/04/17 13:14 Dose: 4 mg Heparin Sodium (Porcine) (Heparin) 5,000 units SC Q8 ALAN Last Admin: 12/04/17 13:15 Dose: 5,000 units Ceftriaxone Sodium 1 gm/ (Sodium Chloride) 100 mls @ 100 mls/hr IVPB DAILY ALAN PRN Reason: Protocol Last Admin: 12/04/17 09:44 Dose: 100 mls/hr Sodium Chloride (Sodium Chloride 0.45%) 1,000 mls @ 100 mls/hr IV .Q10H [facility] Last Admin: 12/04/17 05:00 Dose: 100 mls/hr Propofol (Diprivan) 1,000 mg in 100 mls @ 1.8 mls/hr IV .Q24H PRN; Protocol; 5 MCG/KG/MIN PRN Reason: TITRATE PER MD ORDER Last Admin: 12/04/17 09:48 Dose: 40 mcg/kg/min, 14.4 mls/hr Clindamycin Phosphate 300 mg/ (Sodium Chloride) 102 mls @ 104 mls/hr IVPB Q6H ALAN PRN Reason: Protocol Insulin Human Regular (Novolin R) 0 unit SC Q6 ALAN PRN Reason: Protocol Last Admin: 12/04/17 13:00 Dose: 2 unit Lorazepam (Ativan) 1 mg IVP Q6H PRN PRN Reason: Anxiety Last Admin: 12/03/17 05:30 Dose: 1 mg Pantoprazole Sodium (Protonix Inj) 40 mg IVP DAILY ALAN Last Admin: 12/04/17 09:51 Dose: 40 mg Pneumococcal Polyvalent Vaccine (Pneumovax 23 Vaccine) 0.5 ml IM .ONCE ONE Stop: 12/05/17 10:01 - Labs Labs: 12/04/17 05:55 12/04/17 05:58 APTT 36 SECONDS (21-34) H 12/04/17 05:55 - Constitutional Appears: Non-toxic, No Acute Distress - Head Exam Head Exam: NORMAL INSPECTION Additional comments: intubated sedated - Respiratory Exam Respiratory Exam: Decreased Breath Sounds, NORMAL BREATHING PATTERN. absent: Rales, Rhonchi Additional comments: on vent, intubated - Cardiovascular Exam Cardiovascular Exam: REGULAR RHYTHM, +S2 - GI/Abdominal Exam GI & Abdominal Exam: Soft, Normal Bowel Sounds. absent: Distended, Firm, Guarding, Rigid, Tenderness, Rebound - Back Exam Additional comments: prevalon boots bilateral - Neurological Exam Additional comments: sedated - Skin Skin Exam: Diaphoretic, Normal Color, Warm Assessment and Plan (1) Acute epiglottitis with airway obstruction Assessment & Plan: ENT (Dr. Graves) on consult-->help appreciated ID (Dr. Perales) on consult-->help appreciated CT Soft Tissue Neck with contrast (12/02/17): massively enlarged epiglottis secondary to likely acute infectious/inflammatory process with mass effect upon airway although airway is patent, rounded fluid density along the anterior aspect of C3-4 that is possible early developing retropharyngeal abscess. Chest xray (12/04/17): no active disease IV Abx: Ceftriaxone 1 gm IV Q24H (12/03/17) Clindamycin 300 mg IV Q6H (12/03/17) Dexamethasone 4 mg IV Q8H (12/03/17) Diprivan 5 mcg/kg/min F/U Herpes Simplex Virus 1/2: pending Varicella Zoster Virus IgG: positive Influenza: negative F/U Xiao Armstrong Virus Group A Strep: negative Blood Culture (12/03/17): no growth after 24hours X2 MRSA (12/03/17): not detected Urine culture (12/03/17): no growth Throat (12/03/17): no beta strep group A isolated Status: Acute (2) Diabetes Assessment & Plan: Accuchecks Q6H Hgba1c: 7.0 Hold Metformin Status: Chronic (3) Hypertension Assessment & Plan: Normotensive Monitor vital signs patient is on sedation Status: Chronic (4) Acute renal insufficiency Assessment & Plan: monitor BUN/Cr Status: Acute (5) Prophylactic measure Assessment & Plan: Heparin 5000 units subq8H for DVT ppx Protonix 40mg IV q daily for GI ppx Sedation Status: Acute
[2017-12-04] MEDS ORDERED: Clindamycin 300 MG in Sodium Chloride 0.9% 100 ML IVPB SCH (14:30)
--- NOTE | 2017-12-04 15:09 | CP.PCM.CON ---
History of Present Illness - History of Present Illness History of Present Illness: dictated Past Patient History - Past Medical History & Family History Past Medical History?: Yes - Past Social History Smoking Status: Never Smoked - CARDIAC Hx Hypertension: Yes - PULMONARY Other/Comment: epiglottis - ENDOCRINE/METABOLIC Hx Endocrine Disorders: Yes Hx Diabetes Mellitus Type 1: Yes - MUSCULOSKELETAL/RHEUMATOLOGICAL Hx Falls: No - PSYCHIATRIC Hx Substance Use: No - SURGICAL HISTORY Hx Surgeries: No - ANESTHESIA Hx Anesthesia: No Meds Allergies/Adverse Reactions: Allergies Allergy/AdvReac Type Severity Reaction Status Date / Time No Known Allergies Allergy Verified 12/02/17 22:44 - Medications Medications: Current Medications Dexamethasone (Decadron Inj) 4 mg IVP Q8H [facility] Last Admin: 12/04/17 13:14 Dose: 4 mg Heparin Sodium (Porcine) (Heparin) 5,000 units SC Q8 [facility] Last Admin: 12/04/17 13:15 Dose: 5,000 units Sodium Chloride (Sodium Chloride 0.45%) 1,000 mls @ 100 mls/hr IV .Q10H [facility] Last Admin: 12/04/17 05:00 Dose: 100 mls/hr Propofol (Diprivan) 1,000 mg in 100 mls @ 1.8 mls/hr IV .Q24H PRN; Protocol; 5 MCG/KG/MIN PRN Reason: TITRATE PER MD ORDER Last Admin: 12/04/17 09:48 Dose: 40 mcg/kg/min, 14.4 mls/hr Ceftriaxone Sodium (Rocephin Iv 1 Gm Duplex) 50 mls @ 100 mls/hr IVPB Q12H [facility] PRN Reason: Protocol Clindamycin Phosphate 600 mg/ (Sodium Chloride) 104 mls @ 100 mls/hr IV Q8H [facility] PRN Reason: Protocol Insulin Human Regular (Novolin R) 0 unit SC Q6 [facility]AN PRN Reason: Protocol Last Admin: 12/04/17 13:00 Dose: 2 unit Lorazepam (Ativan) 1 mg IVP Q6H PRN PRN Reason: Anxiety Last Admin: 12/03/17 05:30 Dose: 1 mg Pantoprazole Sodium (Protonix Inj) 40 mg IVP DAILY [facility] Last Admin: 12/04/17 09:51 Dose: 40 mg Pneumococcal Polyvalent Vaccine (Pneumovax 23 Vaccine) 0.5 ml IM .ONCE ONE Stop: 12/05/17 10:01 Results - Vital Signs Recent Vital Signs: Last Vital Signs Temp 97.4 F L 12/04/17 12:00 Pulse 61 12/04/17 15:02 Resp 13 12/04/17 15:02 BP 111/59 L 12/04/17 15:00 Pulse Ox 99 12/04/17 15:02 - Labs Result Diagrams: 12/04/17 05:55 12/04/17 05:58 Labs: Laboratory Results - last 24 hr 12/03/17 12/03/17 12/03/17 09:11 10:56 17:36 WBC RBC Hgb Hct MCV MCH MCHC RDW Plt Count MPV Neut % (Auto) Lymph % (Auto) [place] % (Auto) Eos % (Auto) Baso % (Auto) Neut # (Auto) Lymph # (Auto) [place] # (Auto) Eos # (Auto) Baso # (Auto) Neutrophils % (Manual) Band Neutrophils % Lymphocytes % (Manual) Monocytes % (Manual) Platelet Estimate Hypochromasia (manual) [place] Cells APTT Puncture Site pCO2 pO2 HCO3 ABG pH ABG Total CO2 ABG O2 Saturation ABG Base Excess ABG Hemoglobin ABG Carboxyhemoglobin POC ABG HHb (Measured) ABG Methemoglobin Marlon Test A-a O2 Difference Respiratory Index Hgb O2 Saturation Vent Mode Mechanical Rate FiO2 Tidal Volume PEEP Crit Value Called To Crit Value Called By Crit Value Read Back Blood Gas Notified Time Sodium Potassium Chloride Carbon Dioxide Anion Gap BUN Creatinine Est GFR ( Amer) Est GFR (Non-Af Amer) POC Glucose (mg/dL) 179 H Random Glucose Hemoglobin A1c Calcium Phosphorus Magnesium Total Bilirubin AST ALT Alkaline Phosphatase Total Protein Albumin Globulin Albumin/Globulin Ratio Triglycerides Cholesterol LDL Cholesterol Direct HDL Cholesterol Free T4 TSH 3rd Generation EBV Capsid Ag IgG Ab 281.00 H EBV Capsid Ag IgM Ab <36.00 EBV Nuclear Antigen Ab <18.00 EBV Interpretation See note VZV IgG Antibody Positive 12/03/17 12/04/17 12/04/17 23:45 04:55 05:17 WBC RBC Hgb Hct MCV MCH MCHC RDW Plt Count MPV Neut % (Auto) Lymph % (Auto) [place] % (Auto) Eos % (Auto) Baso % (Auto) Neut # (Auto) Lymph # (Auto) [place] # (Auto) Eos # (Auto) Baso # (Auto) Neutrophils % (Manual) Band Neutrophils % Lymphocytes % (Manual) Monocytes % (Manual) Platelet Estimate Hypochromasia (manual) Javier Cells APTT Puncture Site Rba pCO2 34 L pO2 203 H HCO3 19.6 L ABG pH 7.34 L ABG Total CO2 19.3 L ABG O2 Saturation 98.9 H ABG Base Excess -6.8 L ABG Hemoglobin 8.3 L ABG Carboxyhemoglobin 1.0 POC ABG HHb (Measured) 1.1 ABG Methemoglobin 0.9 Marlon Test Pos A-a O2 Difference 40.0 Respiratory Index 0.2 Hgb O2 Saturation 97.0 Vent Mode Prvc Mechanical Rate 14 FiO2 40.0 Tidal Volume 450 PEEP 5 Crit Value Called To Simon sanches md Crit Value Called By R alert back shoe worker Crit Value Read Back Y Blood Gas Notified Time 548 Sodium Potassium Chloride Carbon Dioxide Anion Gap BUN Creatinine Est GFR ( Amer) Est GFR (Non-Af Amer) POC Glucose (mg/dL) 149 H 187 H Random Glucose Hemoglobin A1c Calcium Phosphorus Magnesium Total Bilirubin AST ALT Alkaline Phosphatase Total Protein Albumin Globulin Albumin/Globulin Ratio Triglycerides Cholesterol LDL Cholesterol Direct HDL Cholesterol Free T4 TSH 3rd Generation EBV Capsid Ag IgG Ab EBV Capsid Ag IgM Ab EBV Nuclear Antigen Ab EBV Interpretation VZV IgG Antibody 12/04/17 12/04/17 12/04/17 05:55 05:55 05:55 WBC 6.8 RBC 2.90 L Hgb 8.6 L Hct 24.8 L MCV 85.7 MCH 29.8 MCHC 34.8 RDW 13.3 Plt Count 210 MPV 9.7 Neut % (Auto) 91.0 H Lymph % (Auto) 4.9 L [place] % (Auto) 4.0 Eos % (Auto) 0.0 Baso % (Auto) 0.1 Neut # (Auto) 6.2 Lymph # (Auto) 0.3 L [place] # (Auto) 0.3 Eos # (Auto) 0.0 Baso # (Auto) 0.0 Neutrophils % (Manual) 94 H Band Neutrophils % 2 Lymphocytes % (Manual) 1 L Monocytes % (Manual) 3 Platelet Estimate Normal Hypochromasia (manual) Slight [place] Cells Slight APTT 36 H Puncture Site pCO2 pO2 HCO3 ABG pH ABG Total CO2 ABG O2 Saturation ABG Base Excess ABG Hemoglobin ABG Carboxyhemoglobin POC ABG HHb (Measured) ABG Methemoglobin Marlon Test A-a O2 Difference Respiratory Index Hgb O2 Saturation Vent Mode Mechanical Rate FiO2 Tidal Volume PEEP Crit Value Called To Crit Value Called By Crit Value Read Back Blood Gas Notified Time Sodium Potassium Chloride Carbon Dioxide Anion Gap BUN Creatinine Est GFR ( Amer) Est GFR (Non-Af Amer) POC Glucose (mg/dL) Random Glucose Hemoglobin A1c 7.0 H Calcium Phosphorus Magnesium Total Bilirubin AST ALT Alkaline Phosphatase Total Protein Albumin Globulin Albumin/Globulin Ratio Triglycerides Cholesterol LDL Cholesterol Direct HDL Cholesterol Free T4 TSH 3rd Generation EBV Capsid Ag IgG Ab EBV Capsid Ag IgM Ab EBV Nuclear Antigen Ab EBV Interpretation VZV IgG Antibody 12/04/17 12/04/17 12/04/17 05:58 05:58 05:58 WBC RBC Hgb Hct MCV MCH MCHC RDW Plt Count MPV Neut % (Auto) Lymph % (Auto) [place] % (Auto) Eos % (Auto) Baso % (Auto) Neut # (Auto) Lymph # (Auto) [place] # (Auto) Eos # (Auto) Baso # (Auto) Neutrophils % (Manual) Band Neutrophils % Lymphocytes % (Manual) Monocytes % (Manual) Platelet Estimate Hypochromasia (manual) Javier Cells APTT Puncture Site pCO2 pO2 HCO3 ABG pH ABG Total CO2 ABG O2 Saturation ABG Base Excess ABG Hemoglobin ABG Carboxyhemoglobin POC ABG HHb (Measured) ABG Methemoglobin Marlon Test A-a O2 Difference Respiratory Index Hgb O2 Saturation Vent Mode Mechanical Rate FiO2 Tidal Volume PEEP Crit Value Called To Crit Value Called By Crit Value Read Back Blood Gas Notified Time Sodium 134 Potassium 4.6 Chloride 105 Carbon Dioxide 18 L Anion Gap 16 BUN 38 H Creatinine 1.6 H Est GFR ( Amer) 53 Est GFR (Non-Af Amer) 44 POC Glucose (mg/dL) Random Glucose 200 H Hemoglobin A1c Calcium 7.2 L Phosphorus 6.8 H Magnesium 2.0 Total Bilirubin 0.3 AST 18 ALT 13 L D Alkaline Phosphatase 59 Total Protein 5.9 L Albumin 2.8 L Globulin 3.1 Albumin/Globulin Ratio 0.9 L Triglycerides 111 Cholesterol 159 LDL Cholesterol Direct 79 HDL Cholesterol 40 Free T4 2.09 TSH 3rd Generation 0.16 L EBV Capsid Ag IgG Ab EBV Capsid Ag IgM Ab EBV Nuclear Antigen Ab EBV Interpretation VZV IgG Antibody 12/04/17 11:36 WBC RBC Hgb Hct MCV MCH MCHC RDW Plt Count MPV Neut % (Auto) Lymph % (Auto) [place] % (Auto) Eos % (Auto) Baso % (Auto) Neut # (Auto) Lymph # (Auto) [place] # (Auto) Eos # (Auto) Baso # (Auto) Neutrophils % (Manual) Band Neutrophils % Lymphocytes % (Manual) Monocytes % (Manual) Platelet Estimate Hypochromasia (manual) Javier Cells APTT Puncture Site pCO2 pO2 HCO3 ABG pH ABG Total CO2 ABG O2 Saturation ABG Base Excess ABG Hemoglobin ABG Carboxyhemoglobin POC ABG HHb (Measured) ABG Methemoglobin Marlon Test A-a O2 Difference Respiratory Index Hgb O2 Saturation Vent Mode Mechanical Rate FiO2 Tidal Volume PEEP Crit Value Called To Crit Value Called By Crit Value Read Back Blood Gas Notified Time Sodium Potassium Chloride Carbon Dioxide Anion Gap BUN Creatinine Est GFR ( Amer) Est GFR (Non-Af Amer) POC Glucose (mg/dL) 230 H Random Glucose Hemoglobin A1c Calcium Phosphorus Magnesium Total Bilirubin AST ALT Alkaline Phosphatase Total Protein Albumin Globulin Albumin/Globulin Ratio Triglycerides Cholesterol LDL Cholesterol Direct HDL Cholesterol Free T4 TSH 3rd Generation EBV Capsid Ag IgG Ab EBV Capsid Ag IgM Ab EBV Nuclear Antigen Ab EBV Interpretation VZV IgG Antibody
[2017-12-04] MEDS ORDERED: Clindamycin 600 MG in Sodium Chloride 0.9% 100 ML IV SCH (16:00)
[2017-12-04] MEDS: Clindamycin 600mg/50ml NS 600 MG/50 ML BAG IVPB SCH (16:43)
[2017-12-04] MEDS: cefTRIAXone IV 1 gm in Dextros 50 ML IVPB SCH (20:12)
--- NOTE | 2017-12-04 23:27 | CARD ---
APPROVED REPORT EKG Measurement Heart [id number] <Conclusion> Normal sinus rhythm Nonspecific ST and T wave abnormality Abnormal ECG
[2017-12-05] MEDS: (Novolin R) Insulin Human Regular 100 units/ml vial SC SCH ×5 (00:48→23:52)
[2017-12-05] MEDS: Clindamycin 600mg/50ml NS 600 MG/50 ML BAG IVPB SCH ×4 (00:51→23:14)
[2017-12-05] MEDS: Propofol 10 mg/ml 1,000 MG/100 ML VIAL IV PRN (03:27)
[2017-12-05] MEDS: Dexamethasone 4 mg/1 ml IVP SCH (05:28)
[2017-12-05] MEDS: Sodium Chloride 0.45% 1,000 ML IV SCH ×2 (05:29→17:05)
[2017-12-05 05:42] LABS: ARTERIAL BLOOD GAS HCO3 19.3 mmol/L (21-28); ARTERIAL BLOOD GAS HEMOGLOBIN 8.9 g/dL (11.7-17.4); ARTERIAL BLOOD GAS O2 SAT 98.8 % (95-98); ARTERIAL BLOOD GAS PCO2 33 mm/Hg (35-45); ARTERIAL BLOOD GAS PH 7.34 (7.35-7.45); ARTERIAL BLOOD GAS PO2 196 mm/Hg (80-100); ARTERIAL BLOOD GAS TCO2 18.8 mmol/L (22-28)
[2017-12-05 06:15] LABS: BASO % 0.2 % (0.0-2.0); HEMOGLOBIN 9.4 g/dL (12.0-18.0); LYMPH # 0.4 K/uL (1.0-4.3); LYMPH % 6.6 % (20.0-40.0); MEAN CELL VOLUME 87.8 fL (80.0-94.0); MEAN CORPUSCULAR HEMOGLOBIN 29.7 pg (27.0-31.0); MEAN CORPUSCULAR HGB CONC 33.8 g/dL (33.0-37.0); MEAN PLATELET VOLUME 10.2 fL (7.2-11.7); MONO # 0.4 K/uL (0.0-0.8); MONO % 6.9 % (0.0-10.0); NEUT # 5.4 K/uL (1.8-7.0); NEUT % 86.3 % (50.0-75.0); PLATELET COUNT 196 K/uL (130-400); RBC 3.17 Mil/uL (4.40-5.90); RED CELL DISTRIBUTION WIDTH 13.8 % (11.5-14.5); WHITE BLOOD COUNT 6.2 K/uL (4.8-10.8)
[2017-12-05 06:37] LABS: ALB/GLOB RATIO 0.9 (1.0-2.1); ALBUMIN 2.9 g/dL (3.5-5.0); ALT/SGPT 7 U/L (21-72); AST/SGOT 32 U/L (17-59); BLOOD UREA NITROGEN 46 mg/dL (9-20); CALCIUM 7.1 mg/dl (8.6-10.4); GFR AFRICAN-AMERICAN > 60; GFR NON-AFRICAN AMERICAN 51
--- NOTE | 2017-12-05 07:22 | CP.PCM.PN ---
Subjective - Date & Time of Evaluation Date of Evaluation: 12/05/17 Time of Evaluation: 07:10 - Subjective Subjective: Medical Attending Note: Patient seen and examined this morning. Patient is on sedation. He is awake and alert will nod his head yes and no. He denies any pain at this time. Patient to be re-evaluated this morning by ENT given he had epiglottic swelling on re- evaluation yesterday. Objective - Vital Signs/Intake and Output Vital Signs (last 24 hours): Temp Pulse Resp BP Pulse Ox 97.5 F L 67 11 L 130/62 100 12/05/17 00:00 12/05/17 06:02 12/05/17 06:02 12/05/17 06:02 12/05/17 06:02 Intake and Output: 12/05/17 12/05/17 06:59 18:59 Intake Total 1570.3 Output Total 925 Balance 645.3 - Medications Medications: Current Medications Dexamethasone (Decadron Inj) 4 mg IVP Q8H [facility] Last Admin: 12/05/17 05:28 Dose: 4 mg Heparin Sodium (Porcine) (Heparin) 5,000 units SC Q8 [facility] Last Admin: 12/05/17 05:28 Dose: 5,000 units Sodium Chloride (Sodium Chloride 0.45%) 1,000 mls @ 100 mls/hr IV .Q10H [facility] Last Admin: 12/05/17 05:29 Dose: 100 mls/hr Propofol (Diprivan) 1,000 mg in 100 mls @ 1.8 mls/hr IV .Q24H PRN; Protocol; 5 MCG/KG/MIN PRN Reason: TITRATE PER MD ORDER Last Admin: 12/05/17 03:27 Dose: 50 mcg/kg/min, 18 mls/hr Ceftriaxone Sodium (Rocephin Iv 1 Gm Duplex) 50 mls @ 100 mls/hr IVPB Q12H [facility] PRN Reason: Protocol Last Admin: 12/04/17 20:12 Dose: 100 mls/hr Clindamycin Phosphate (Cleocin In Normal Saline) 600 mg in 50 mls @ 100 mls/hr IVPB Q8H [facility] PRN Reason: Protocol Last Admin: 12/05/17 00:51 Dose: 100 mls/hr Insulin Human Regular (Novolin R) 0 unit SC Q6 [facility] PRN Reason: Protocol Last Admin: 12/05/17 06:11 Dose: 3 unit Lorazepam (Ativan) 1 mg IVP Q6H PRN PRN Reason: Anxiety Last Admin: 12/03/17 05:30 Dose: 1 mg Pantoprazole Sodium (Protonix Inj) 40 mg IVP DAILY [facility] Last Admin: 12/04/17 09:51 Dose: 40 mg Pneumococcal Polyvalent Vaccine (Pneumovax 23 Vaccine) 0.5 ml IM .ONCE ONE Stop: 12/05/17 10:01 - Labs Labs: 12/05/17 06:11 12/05/17 06:11 APTT 36 SECONDS (21-34) H 12/04/17 05:55 - Constitutional Appears: Non-toxic, No Acute Distress - Eye Exam Eye Exam: EOMI - ENT Exam ENT Exam: Mucous Membranes Moist - Respiratory Exam Respiratory Exam: Clear to Ausculation Bilateral, NORMAL BREATHING PATTERN. absent: Rales, Rhonchi, Wheezes - Cardiovascular Exam Cardiovascular Exam: REGULAR RHYTHM, +S1, +S2 - GI/Abdominal Exam GI & Abdominal Exam: Soft, Normal Bowel Sounds. absent: Distended, Firm, Guarding, Rigid, Tenderness, Rebound - Extremities Exam Extremities Exam: absent: Pedal Edema, Tenderness Additional comments: prevalon boots - Neurological Exam Neurological Exam: Awake - Skin Skin Exam: Dry, Intact, Normal Color, Warm Assessment and Plan (1) Acute epiglottitis with airway obstruction Status: Acute (2) Diabetes Status: Chronic (3) Hypertension Status: Chronic (4) Acute renal insufficiency Status: Acute (5) Prophylactic measure Status: Acute Attending/Attestation - Attestation I have personally seen and examined this patient.: Yes I have fully participated in the care of the patient.: Yes I have reviewed all pertinent clinical information, including history, physical exam and plan: Yes Notes (Text): (1) Acute epiglottitis with airway obstruction Retropharyneal Abscess Assessment & Plan: ENT (Dr. Graves) on consult-->help appreciated ID (Dr. Perales) on consult-->help appreciated CT Soft Tissue Neck with contrast (12/02/17): massively enlarged epiglottis secondary to likely acute infectious/inflammatory process with mass effect upon airway although airway is patent, rounded fluid density along the anterior aspect of C3-4 that is possible early developing retropharyngeal abscess. Chest xray (12/04/17): no active disease Patient was intubated prophylactically by anesthesia on admission. IV Abx: Ceftriaxone 1 gm IV Q12H (12/04/17) Clindamycin 600 mg IV Q6H (12/04/17) Dexamethasone 4 mg IV Q8H (12/03/17) Diprivan 5 mcg/kg/min F/U Herpes Simplex Virus 1/2: pending Varicella Zoster Virus IgG: positive Influenza: negative F/U Xiao Armstrong Virus Group A Strep: negative Blood Culture (12/03/17): no growth after 24hours X2 MRSA (12/03/17): not detected Urine culture (12/03/17): no growth Throat (12/03/17): no beta strep group A isolated Status: Acute (2) Diabetes Assessment & Plan: Accuchecks Q6H Hgba1c: 7.0 Hold Metformin Status: Chronic (3) Hypertension Assessment & Plan: Normotensive Monitor vital signs patient is on sedation Status: Chronic (4) Acute renal insufficiency Assessment & Plan: monitor BUN/Cr Status: Acute (5) Prophylactic measure Assessment & Plan: Heparin 5000 units subq8H for DVT ppx Protonix 40mg IV q daily for GI ppx Sedation Status: Acute
--- NOTE | 2017-12-05 07:31 | CON ---
DATE: INFECTIOUS DISEASE CONSULT REQUESTED BY: Jose Damian MD HISTORY OF PRESENT ILLNESS: The patient is a 67-year-old male. He is visiting from [place]. He was here from last year according to the son he lives with and he is visiting, and he started to have shortness of breath, unable to tolerate food. On 12/03/2017, he drank tea at 9 a.m., and he was offered a slice of bread but was unable to eat it as he was having difficulty swallowing. He has been having fevers, and he got intubated here because he has acute epiglottitis and the patient did not have any stridor or accessory muscle use, but in the ER, he was given Decadron and epinephrine, and he was also given Benadryl. The patient is intubated at this time, and I am asked to evaluate for antibiotics. PAST MEDICAL HISTORY: Significant for diabetes mellitus, hypertension. MEDICATIONS: He takes his metformin and Norvasc. SURGICAL HISTORY: No previous surgeries. SOCIAL HISTORY: No history of smoking, drinking or alcohol abuse. FAMILY HISTORY: Noncontributory. There is a 2-year-old kid at home and the son tells me that the kid was ill before. ALLERGIES: THE PATIENT IS NOT ALLERGIC TO ANY MEDICINES. He has no history of DVT. He has history of diabetes. Never smoked. Has hypertension and no other medical illnesses. No previous allergies, and came in with this sudden onset of difficulty swallowing and not able to eat, and with fever and now he is intubated. MEDICATIONS: His medications, I adjusted the dose. He was on clindamycin which was 300 every 6 hours, I made it 600 every 8 hours; Rocephin, we are going to give 1 gm every 12 hours; heparin subcu, and he is on Novolin coverage. He is also on Ativan for sedation, Protonix, and they gave together pneumonia vac and Diprivan, and he is on IV fluids which are on hold. PHYSICAL EXAMINATION: VITAL SIGNS: I find his vitals, T-max is 97.1, pulse 73, blood pressure 122/74, respirations are 13, saturations 100%. He is on a mechanical ventilator. HEENT: Head is atraumatic and normocephalic. Dr. Rivera told me that the GlideScope appears to continue swelling, so will remain intubated at this time. He is sedated and intubated. NECK: Supple. LUNGS: Clear. No crackles or rales present. HEART: S1, S2 regular. ABDOMEN: Soft, nontender. No guarding, no rigidity present. EXTREMITIES: Have no edema, clubbing, or cyanosis. He is on dexamethasone and antibiotics and he is on sedation at this time and insulin for coverage. LABORATORY DATA: Lab showed white count is 6.8, hemoglobin 8.6, hematocrit 24.8, platelet count is 210. Sodium 134, potassium 4.6, chloride is 105, BUN is 18, creatinine is 1.6. Urine shows 3+ protein, rbc 4. He is diabetic. His EBV titer was done which shows IgG is up, IgM is negative, and influenza was negative. His VZV IgG antibody is positive but that is IgG zoster antibody, he may have had a vaccine. Chest soft tissues, neck CT was done which shows epiglottitis markedly enlarged with heterogenous enlargement, measuring 2 x 2 cm on sagittal image 64, and although airway remains patent in prevertebral soft tissue 3, 3 to 4, there is rounded 1 cm area of low attenuation, really abutting enlarged inflamed epiglottitis. This is a heterogenous enhancement, and he is concerned about early retropharyngeal abscess. There is a 7 mm area of enhancement of peripheral right upper lung of uncertain etiology, possibly AVM, recommend correlation with priors if any exists. So at this time, there may be a retropharyngeal abscess. There is acute epiglottitis. I suggest ENT evaluation and to continue antibiotics at this time, and we will follow. Ilda Perales MD
[2017-12-05 08:13] LABS: LYMPHOCYTE 12 % (20-40); MONOCYTE 5 % (0-10); NEUTROPHIL 83 % (50-75); TOTAL CELLS COUNTED 100
[2017-12-05 08:14] LABS: PLATELET ESTIMATE NORMAL (NORMAL)
--- NOTE | 2017-12-05 08:18 | RAD ---
HISTORY: intubated COMPARISON: 12/04/2017 FINDINGS: Endotracheal tube terminates 2.5 cm proximal to the scotty. LUNGS: The lungs are clear. PLEURA: No significant pleural effusion identified, no pneumothorax apparent. CARDIOVASCULAR: Normal. OSSEOUS STRUCTURES: No significant abnormalities. VISUALIZED UPPER ABDOMEN: Normal. OTHER FINDINGS: None. IMPRESSION: No acute findings. Stable position of endotracheal tube.
[2017-12-05 08:19] LABS: BURR CELLS SLIGHT; HYPOCHROMIC SLIGHT
[2017-12-05 08:20] LABS: ANISOCYTOSIS SLIGHT; POIKILOCYTOSIS SLIGHT
[2017-12-05] MEDS: cefTRIAXone IV 1 gm in Dextros 50 ML IVPB SCH ×2 (09:00→19:36)
[2017-12-05] MEDS ORDERED: Pneumococcal 23-Valent Vaccine IM ONE (10:00)
[2017-12-05] MEDS ORDERED: Propofol 10 mg/ml Inj (20 ML) ONE (10:53)
--- NOTE | 2017-12-05 11:05 | CP.CCUPN ---
<Arlene Davidson - Last Filed: 12/05/17 14:30> CCU Subjective - Physician Review Subjective (Free Text): 12/05/17 11:04 Patient seen and examined at bedside. Per nursing no acute events overnight. Patient is intubated and sedated on propofol. Direct laryngoscopy performed at the bedside by Dr Graves, swelling has improved, for possible extubation. CCU Objective - Vital Signs / Intake & Output Vital Signs (Last 4 hours): Vital Signs Pulse Resp BP Pulse Ox 12/05/17 10:02 64 11 L 136/77 100 12/05/17 10:00 65 12 99 12/05/17 09:02 62 14 99 Intake and Output (Last 8hrs): Intake & Output 12/04/17 12/05/17 12/05/17 22:59 06:59 14:59 Intake Total 1115.5 994 350 Output Total 485 650 Balance 630.5 344 350 Intake: IV 200 100 0 Intake, IV Amount 915.5 894 350 Left Antecubital 165.5 144 Left Hand 750 750 350 Output: Urine 485 650 Urethral (Carlos) 485 650 - Physical Exam Head: Positive for: Atraumatic, Normocephalic Pupils: Positive for: PERRL Extroacular Muscles: Positive for: EOMI Conjunctiva: Positive for: Normal Mouth: Positive for: Moist Mucous Membranes, Other (ETT) Pharnyx: Positive for: Other (Epiglottis less swollen) Neck: Positive for: Normal Range of Motion Respiratory/Chest: Positive for: Good Air Exchange. Negative for: Respiratory Distress, Accessory Muscle Use Cardiovascular: Positive for: Regular Rate and Rhythm, Normal S1, S2. Negative for: Murmurs Abdomen: Positive for: Normal Bowel Sounds. Negative for: Tenderness, Peritoneal Signs Upper Extremity: Negative for: Normal Inspection, Cyanosis, Edema Lower Extremity: Positive for: Normal Inspection, Other (Prevalon boots) Skin: Positive for: Warm, Dry Psychiatric: Positive for: Alert, Oriented x 3 - Medications Active Medications: Active Medications Generic Name Dose Route Start Last Admin Trade Name Freq PRN Reason Stop Dose Admin Dexamethasone 10 mg 12/05/17 20:00 Decadron Inj IVP Q12H ALAN Heparin Sodium (Porcine) 5,000 units 12/03/17 14:00 12/05/17 05:28 Heparin SC 5,000 units Q8 ALAN Administration Sodium Chloride 1,000 mls @ 100 mls/hr 12/03/17 03:30 12/05/17 05:29 Sodium Chloride 0.45% IV 100 mls/hr .Q10H ALAN Administration Propofol 1,000 mg in 100 mls @ 1.8 mls/hr 12/03/17 04:36 12/05/17 09:29 Diprivan IV 60 mcg/kg/min .Q24H PRN 21.6 mls/hr TITRATE PER MD ORDER Titration Protocol 5 MCG/KG/MIN Ceftriaxone Sodium 50 mls @ 100 mls/hr 12/04/17 20:00 12/04/17 20:12 Rocephin Iv 1 Gm Duplex IVPB 100 mls/hr Q12H ALAN Administration Protocol Clindamycin Phosphate 600 mg in 50 mls @ 100 mls/hr 12/04/17 16:00 12/05/17 07:19 Cleocin In Normal Saline IVPB 100 mls/hr Q8H ALAN Administration Protocol Insulin Human Regular 0 unit 12/03/17 06:00 12/05/17 06:11 Novolin R SC 3 unit Q6 ALAN Administration Protocol Lorazepam 1 mg 12/03/17 04:50 12/03/17 05:30 Ativan IVP 1 mg Q6H PRN Administration Anxiety Pantoprazole Sodium 40 mg 12/03/17 10:00 12/04/17 09:51 Protonix Inj IVP 40 mg DAILY ALAN Administration - Patient Studies Lab Studies: Microbiology Studies 12/03/17 02:41 Blood Culture - Preliminary Blood NO GROWTH AFTER 48 HOURS 12/03/17 02:41 Blood Culture - Preliminary Blood NO GROWTH AFTER 48 HOURS 12/03/17 05:08 MRSA Culture (Admit) - Final Nose MRSA NOT DETECTED 12/03/17 09:13 Group A Strep Throat Culture - Final Throat NO BETA STREP GROUP A ISOLATED. 12/03/17 07:34 Urine Culture - Final Urine,Carlos No Growth (<1,000 CFU/ML) Lab Studies 12/05/17 12/05/17 12/05/17 Range/Units 06:11 06:11 05:43 WBC 6.2 (4.8-10.8) K/uL RBC 3.17 L (4.40-5.90) Mil/uL Hgb 9.4 L (12.0-18.0) g/dL Hct 27.8 L (35.0-51.0) % MCV 87.8 D (80.0-94.0) fL MCH 29.7 (27.0-31.0) pg MCHC 33.8 (33.0-37.0) g/dL RDW 13.8 (11.5-14.5) % Plt Count 196 (130-400) K/uL MPV 10.2 (7.2-11.7) fL Neut % (Auto) 86.3 H (50.0-75.0) % Lymph % (Auto) 6.6 L (20.0-40.0) % Day % (Auto) 6.9 (0.0-10.0) % Eos % (Auto) 0.0 (0.0-4.0) % Baso % (Auto) 0.2 (0.0-2.0) % Neut # (Auto) 5.4 (1.8-7.0) K/uL Lymph # (Auto) 0.4 L (1.0-4.3) K/uL Day # (Auto) 0.4 (0.0-0.8) K/uL Eos # (Auto) 0.0 (0.0-0.7) K/uL Baso # (Auto) 0.0 (0.0-0.2) K/uL Neutrophils % (Manual) 83 H (50-75) % Lymphocytes % (Manual) 12 L (20-40) % Monocytes % (Manual) 5 (0-10) % Platelet Estimate Normal (NORMAL) Hypochromasia (manual) Slight Poikilocytosis (manual Slight Anisocytosis (manual) Slight [place] Cells Slight Puncture Site pCO2 (35-45) mm/Hg pO2 (80-100) mm/Hg HCO3 (21-28) mmol/L ABG pH (7.35-7.45) ABG Total CO2 (22-28) mmol/L ABG O2 Saturation (95-98) % ABG Base Excess (-2.0-3.0) mmol/L ABG Hemoglobin (11.7-17.4) g/dL ABG Carboxyhemoglobin (0.5-1.5) % POC ABG HHb (Measured) (0.0-5.0) % ABG Methemoglobin (0.0-3.0) % Marlon Test A-a O2 Difference mm/Hg Respiratory Index Hgb O2 Saturation (95.0-98.0) % Vent Mode Mechanical Rate FiO2 % Tidal Volume PEEP Sodium 134 (132-148) mmol/L Potassium 5.2 (3.6-5.2) mmol/L Chloride 106 (98-107) mmol/L Carbon Dioxide 18 L (22-30) mmol/L Anion Gap 15 (10-20) BUN 46 H (9-20) mg/dL Creatinine 1.4 (0.8-1.5) mg/dL Est GFR ( Amer) > 60 Est GFR (Non-Af Amer) 51 POC Glucose (mg/dL) 268 H (65-110) mg/dL Random Glucose 239 H (75-110) mg/dL Calcium 7.1 L (8.6-10.4) mg/dl Phosphorus 6.3 H (2.5-4.5) mg/dL Magnesium 2.4 H (1.6-2.3) mg/dL Total Bilirubin 0.5 (0.2-1.3) mg/dL AST 32 (17-59) U/L ALT 7 L D (21-72) U/L Alkaline Phosphatase 48 (38-126) U/L Total Protein 6.2 L (6.3-8.3) g/dL Albumin 2.9 L (3.5-5.0) g/dL Globulin 3.3 (2.2-3.9) gm/dL Albumin/Globulin Ratio 0.9 L (1.0-2.1) EBV Capsid Ag IgG Ab U/mL EBV Capsid Ag IgM Ab U/mL EBV Nuclear Antigen Ab U/mL EBV Interpretation 12/05/17 12/04/17 12/04/17 Range/Units 05:28 23:40 17:55 WBC (4.8-10.8) K/uL RBC (4.40-5.90) Mil/uL Hgb (12.0-18.0) g/dL Hct (35.0-51.0) % MCV (80.0-94.0) fL MCH (27.0-31.0) pg MCHC (33.0-37.0) g/dL RDW (11.5-14.5) % Plt Count (130-400) K/uL MPV (7.2-11.7) fL Neut % (Auto) (50.0-75.0) % Lymph % (Auto) (20.0-40.0) % Day % (Auto) (0.0-10.0) % Eos % (Auto) (0.0-4.0) % Baso % (Auto) (0.0-2.0) % Neut # (Auto) (1.8-7.0) K/uL Lymph # (Auto) (1.0-4.3) K/uL Day # (Auto) (0.0-0.8) K/uL Eos # (Auto) (0.0-0.7) K/uL Baso # (Auto) (0.0-0.2) K/uL Neutrophils % (Manual) (50-75) % Lymphocytes % (Manual) (20-40) % Monocytes % (Manual) (0-10) % Platelet Estimate (NORMAL) Hypochromasia (manual) Poikilocytosis (manual Anisocytosis (manual) [place] Cells Puncture Site Lb pCO2 33 L (35-45) mm/Hg pO2 196 H (80-100) mm/Hg HCO3 19.3 L (21-28) mmol/L ABG pH 7.34 L (7.35-7.45) ABG Total CO2 18.8 L (22-28) mmol/L ABG O2 Saturation 98.8 H (95-98) % ABG Base Excess -7.2 L (-2.0-3.0) mmol/L ABG Hemoglobin 8.9 L (11.7-17.4) g/dL ABG Carboxyhemoglobin 0.8 (0.5-1.5) % POC ABG HHb (Measured) 1.2 (0.0-5.0) % ABG Methemoglobin 0.7 (0.0-3.0) % Marlon Test Na A-a O2 Difference 48.0 mm/Hg Respiratory Index 0.2 Hgb O2 Saturation 97.3 (95.0-98.0) % Vent Mode Prvc Mechanical Rate 14 FiO2 40.0 % Tidal Volume 450 PEEP 5 Sodium (132-148) mmol/L Potassium (3.6-5.2) mmol/L Chloride (98-107) mmol/L Carbon Dioxide (22-30) mmol/L Anion Gap (10-20) BUN (9-20) mg/dL Creatinine (0.8-1.5) mg/dL Est GFR ( Amer) Est GFR (Non-Af Amer) POC Glucose (mg/dL) 217 H 224 H (65-110) mg/dL Random Glucose (75-110) mg/dL Calcium (8.6-10.4) mg/dl Phosphorus (2.5-4.5) mg/dL Magnesium (1.6-2.3) mg/dL Total Bilirubin (0.2-1.3) mg/dL AST (17-59) U/L ALT (21-72) U/L Alkaline Phosphatase (38-126) U/L Total Protein (6.3-8.3) g/dL Albumin (3.5-5.0) g/dL Globulin (2.2-3.9) gm/dL Albumin/Globulin Ratio (1.0-2.1) EBV Capsid Ag IgG Ab U/mL EBV Capsid Ag IgM Ab U/mL EBV Nuclear Antigen Ab U/mL EBV Interpretation 12/04/17 12/03/17 Range/Units 11:36 09:11 WBC (4.8-10.8) K/uL RBC (4.40-5.90) Mil/uL Hgb (12.0-18.0) g/dL Hct (35.0-51.0) % MCV (80.0-94.0) fL MCH (27.0-31.0) pg MCHC (33.0-37.0) g/dL RDW (11.5-14.5) % Plt Count (130-400) K/uL MPV (7.2-11.7) fL Neut % (Auto) (50.0-75.0) % Lymph % (Auto) (20.0-40.0) % Day % (Auto) (0.0-10.0) % Eos % (Auto) (0.0-4.0) % Baso % (Auto) (0.0-2.0) % Neut # (Auto) (1.8-7.0) K/uL Lymph # (Auto) (1.0-4.3) K/uL Day # (Auto) (0.0-0.8) K/uL Eos # (Auto) (0.0-0.7) K/uL Baso # (Auto) (0.0-0.2) K/uL Neutrophils % (Manual) (50-75) % Lymphocytes % (Manual) (20-40) % Monocytes % (Manual) (0-10) % Platelet Estimate (NORMAL) Hypochromasia (manual) Poikilocytosis (manual Anisocytosis (manual) [place] Cells Puncture Site pCO2 (35-45) mm/Hg pO2 (80-100) mm/Hg HCO3 (21-28) mmol/L ABG pH (7.35-7.45) ABG Total CO2 (22-28) mmol/L ABG O2 Saturation (95-98) % ABG Base Excess (-2.0-3.0) mmol/L ABG Hemoglobin (11.7-17.4) g/dL ABG Carboxyhemoglobin (0.5-1.5) % POC ABG HHb (Measured) (0.0-5.0) % ABG Methemoglobin (0.0-3.0) % Marlon Test A-a O2 Difference mm/Hg Respiratory Index Hgb O2 Saturation (95.0-98.0) % Vent Mode Mechanical Rate FiO2 % Tidal Volume PEEP Sodium (132-148) mmol/L Potassium (3.6-5.2) mmol/L Chloride (98-107) mmol/L Carbon Dioxide (22-30) mmol/L Anion Gap (10-20) BUN (9-20) mg/dL Creatinine (0.8-1.5) mg/dL Est GFR ( Amer) Est GFR (Non-Af Amer) POC Glucose (mg/dL) 230 H (65-110) mg/dL Random Glucose (75-110) mg/dL Calcium (8.6-10.4) mg/dl Phosphorus (2.5-4.5) mg/dL Magnesium (1.6-2.3) mg/dL Total Bilirubin (0.2-1.3) mg/dL AST (17-59) U/L ALT (21-72) U/L Alkaline Phosphatase (38-126) U/L Total Protein (6.3-8.3) g/dL Albumin (3.5-5.0) g/dL Globulin (2.2-3.9) gm/dL Albumin/Globulin Ratio (1.0-2.1) EBV Capsid Ag IgG Ab 281.00 H U/mL EBV Capsid Ag IgM Ab <36.00 U/mL EBV Nuclear Antigen Ab <18.00 U/mL EBV Interpretation See note Laboratory Results - last 24 hr 12/03/17 12/04/17 12/04/17 09:11 11:36 17:55 WBC RBC Hgb Hct MCV MCH MCHC RDW Plt Count MPV Neut % (Auto) Lymph % (Auto) Day % (Auto) Eos % (Auto) Baso % (Auto) Neut # (Auto) Lymph # (Auto) Day # (Auto) Eos # (Auto) Baso # (Auto) Neutrophils % (Manual) Lymphocytes % (Manual) Monocytes % (Manual) Platelet Estimate Hypochromasia (manual) Poikilocytosis (manual Anisocytosis (manual) [place] Cells Puncture Site pCO2 pO2 HCO3 ABG pH ABG Total CO2 ABG O2 Saturation ABG Base Excess ABG Hemoglobin ABG Carboxyhemoglobin POC ABG HHb (Measured) ABG Methemoglobin Marlon Test A-a O2 Difference Respiratory Index Hgb O2 Saturation Vent Mode Mechanical Rate FiO2 Tidal Volume PEEP Sodium Potassium Chloride Carbon Dioxide Anion Gap BUN Creatinine Est GFR ( Amer) Est GFR (Non-Af Amer) POC Glucose (mg/dL) 230 H 224 H Random Glucose Calcium Phosphorus Magnesium Total Bilirubin AST ALT Alkaline Phosphatase Total Protein Albumin Globulin Albumin/Globulin Ratio EBV Capsid Ag IgG Ab 281.00 H EBV Capsid Ag IgM Ab <36.00 EBV Nuclear Antigen Ab <18.00 EBV Interpretation See note 12/04/17 12/05/17 12/05/17 23:40 05:28 05:43 WBC RBC Hgb Hct MCV MCH MCHC RDW Plt Count MPV Neut % (Auto) Lymph % (Auto) Day % (Auto) Eos % (Auto) Baso % (Auto) Neut # (Auto) Lymph # (Auto) Day # (Auto) Eos # (Auto) Baso # (Auto) Neutrophils % (Manual) Lymphocytes % (Manual) Monocytes % (Manual) Platelet Estimate Hypochromasia (manual) Poikilocytosis (manual Anisocytosis (manual) [place] Cells Puncture Site Lb pCO2 33 L pO2 196 H HCO3 19.3 L ABG pH 7.34 L ABG Total CO2 18.8 L ABG O2 Saturation 98.8 H ABG Base Excess -7.2 L ABG Hemoglobin 8.9 L ABG Carboxyhemoglobin 0.8 POC ABG HHb (Measured) 1.2 ABG Methemoglobin 0.7 Marlon Test Na A-a O2 Difference 48.0 Respiratory Index 0.2 Hgb O2 Saturation 97.3 Vent Mode Prvc Mechanical Rate 14 FiO2 40.0 Tidal Volume 450 PEEP 5 Sodium Potassium Chloride Carbon Dioxide Anion Gap BUN Creatinine Est GFR ( Amer) Est GFR (Non-Af Amer) POC Glucose (mg/dL) 217 H 268 H Random Glucose Calcium Phosphorus Magnesium Total Bilirubin AST ALT Alkaline Phosphatase Total Protein Albumin Globulin Albumin/Globulin Ratio EBV Capsid Ag IgG Ab EBV Capsid Ag IgM Ab EBV Nuclear Antigen Ab EBV Interpretation 12/05/17 12/05/17 06:11 06:11 WBC 6.2 RBC 3.17 L Hgb 9.4 L Hct 27.8 L MCV 87.8 D MCH 29.7 MCHC 33.8 RDW 13.8 Plt Count 196 MPV 10.2 Neut % (Auto) 86.3 H Lymph % (Auto) 6.6 L Day % (Auto) 6.9 Eos % (Auto) 0.0 Baso % (Auto) 0.2 Neut # (Auto) 5.4 Lymph # (Auto) 0.4 L Day # (Auto) 0.4 Eos # (Auto) 0.0 Baso # (Auto) 0.0 Neutrophils % (Manual) 83 H Lymphocytes % (Manual) 12 L Monocytes % (Manual) 5 Platelet Estimate Normal Hypochromasia (manual) Slight Poikilocytosis (manual Slight Anisocytosis (manual) Slight [place] Cells Slight Puncture Site pCO2 pO2 HCO3 ABG pH ABG Total CO2 ABG O2 Saturation ABG Base Excess ABG Hemoglobin ABG Carboxyhemoglobin POC ABG HHb (Measured) ABG Methemoglobin Marlon Test A-a O2 Difference Respiratory Index Hgb O2 Saturation Vent Mode Mechanical Rate FiO2 Tidal Volume PEEP Sodium 134 Potassium 5.2 Chloride 106 Carbon Dioxide 18 L Anion Gap 15 BUN 46 H Creatinine 1.4 Est GFR ( Amer) > 60 Est GFR (Non-Af Amer) 51 POC Glucose (mg/dL) Random Glucose 239 H Calcium 7.1 L Phosphorus 6.3 H Magnesium 2.4 H Total Bilirubin 0.5 AST 32 ALT 7 L D Alkaline Phosphatase 48 Total Protein 6.2 L Albumin 2.9 L Globulin 3.3 Albumin/Globulin Ratio 0.9 L EBV Capsid Ag IgG Ab EBV Capsid Ag IgM Ab EBV Nuclear Antigen Ab EBV Interpretation Fingerstick Blood Sugar Results: 187 Critical Care Progress Note - Nutrition Nutrition: Nutrition Category Date Time Status NPO Diet [DIET] Diets 12/03/17 Breakfast Active Assessment/Plan - Assessment and Plan (Free Text) Assessment: Patient is a 67 year old male with past medical history of HTN, DM, who presented with worsening shortness of breath. Patient found to have acute epiglottis with airway obstruction. Was intubated for airway protection. Currently being monitored in the ICU. Neurology: -Intubated and sedated on propofol -AAOx3, answers questions appropriately -CPAP trial, titrate sedation off -Plan for possible extubation this afternoon -Will continue to monitor closely in the ICU ENT: -Continue Decadron 10mg IV Q12H -Swelling improved via direct laryngoscopy by Dr Graves -Plan for extubation this afternoon -ENT on consult, Dr Graves, help appreciated Respiratory: -Patient with acute epiglottis with airway obstruction -Patient was intubated for airway -CT Soft Tissue Neck with contrast (12/02/17): massively enlarged epiglottis secondary to likely acute infectious/inflammatory process with mass effect upon airway although airway is patent, rounded fluid density along the anterior aspect of C3-4 that is possible early developing retropharyngeal abscess. -Chest xray (12/04/17): no active disease Cardiovascular: -No acute issues at this time Endocrine: -Patient with history of Diabetes Mellitus -Hgba1c: 7.0 -Will hold metformin at this time -Accuchecks Q6H Infectious Disease: -Antibiotics: Ceftriaxone 1 gm IV Q24H, Clindamycin 300 mg IV Q6H -F/U Herpes Simplex Virus 1/2, parainfluenza -Xiao Armstrong Virus IgG positive, Varicella IgG positive -Throat cx: no group A strep isolated -Blood cx showing no growth x 3 days -ID on consult, Dr Perales, help appreciated GI/DVT ppx: Heparin 5000 units SC 8H Protonix 40mg IV q daily <Hoang Gardiner - Last Filed: 12/05/17 18:07> CCU Objective - Vital Signs / Intake & Output Vital Signs (Last 4 hours): Vital Signs Temp Pulse Resp BP Pulse Ox 12/05/17 17:02 78 19 99 12/05/17 17:00 72 18 158/87 H 97 12/05/17 16:02 69 16 99 12/05/17 16:00 97.6 F 70 16 155/78 H 98 12/05/17 15:02 76 16 98 12/05/17 15:00 75 18 170/89 H 98 Intake and Output (Last 8hrs): Intake & Output 12/05/17 12/05/17 12/05/17 06:59 14:59 22:59 Intake Total 994 750 250 Output Total 650 Balance 344 750 250 Intake: IV 100 0 Intake, IV Amount 894 750 250 Left Antecubital 144 Left Hand 750 750 250 Output: Urine 650 Urethral (Carlos) 650 - Medications Active Medications: Active Medications Generic Name Dose Route Start Last Admin Trade Name Freq PRN Reason Stop Dose Admin Dexamethasone 10 mg 12/05/17 20:00 Decadron Inj IVP Q12H ALAN Heparin Sodium (Porcine) 5,000 units 12/03/17 14:00 12/05/17 17:00 Heparin SC 5,000 units Q8 ALAN Administration Sodium Chloride 1,000 mls @ 100 mls/hr 12/03/17 03:30 12/05/17 17:05 Sodium Chloride 0.45% IV 100 mls/hr .Q10H ALAN Administration Ceftriaxone Sodium 50 mls @ 100 mls/hr 12/04/17 20:00 12/05/17 09:00 Rocephin Iv 1 Gm Duplex IVPB 100 mls/hr Q12H ALAN Administration Protocol Clindamycin Phosphate 600 mg in 50 mls @ 100 mls/hr 12/04/17 16:00 12/05/17 17:00 Cleocin In Normal Saline IVPB 100 mls/hr Q8H ALAN Administration Protocol Insulin Human Regular 0 unit 12/03/17 06:00 12/05/17 11:26 Novolin R SC 1 unit Q6 ALAN Administration Protocol Lorazepam 1 mg 12/03/17 04:50 12/03/17 05:30 Ativan IVP 1 mg Q6H PRN Administration Anxiety Pantoprazole Sodium 40 mg 12/03/17 10:00 12/05/17 10:11 Protonix Inj IVP 40 mg DAILY ALAN Administration - Patient Studies Lab Studies: Microbiology Studies 12/02/17 23:22 Group A Strep Throat Culture - Final Throat NO BETA STREP GROUP A ISOLATED. 12/03/17 02:41 Blood Culture - Preliminary Blood NO GROWTH AFTER 48 HOURS 12/03/17 02:41 Blood Culture - Preliminary Blood NO GROWTH AFTER 48 HOURS Lab Studies 12/05/17 12/05/17 12/05/17 Range/Units 17:56 15:57 15:57 WBC (4.8-10.8) K/uL RBC (4.40-5.90) Mil/uL Hgb (12.0-18.0) g/dL Hct (35.0-51.0) % MCV (80.0-94.0) fL MCH (27.0-31.0) pg MCHC (33.0-37.0) g/dL RDW (11.5-14.5) % Plt Count (130-400) K/uL MPV (7.2-11.7) fL Neut % (Auto) (50.0-75.0) % Lymph % (Auto) (20.0-40.0) % Day % (Auto) (0.0-10.0) % Eos % (Auto) (0.0-4.0) % Baso % (Auto) (0.0-2.0) % Neut # (Auto) (1.8-7.0) K/uL Lymph # (Auto) (1.0-4.3) K/uL Day # (Auto) (0.0-0.8) K/uL Eos # (Auto) (0.0-0.7) K/uL Baso # (Auto) (0.0-0.2) K/uL Neutrophils % (Manual) (50-75) % Lymphocytes % (Manual) (20-40) % Monocytes % (Manual) (0-10) % Platelet Estimate (NORMAL) Hypochromasia (manual) Poikilocytosis (manual Anisocytosis (manual) [place] Cells Puncture Site pCO2 (35-45) mm/Hg pO2 (80-100) mm/Hg HCO3 (21-28) mmol/L ABG pH (7.35-7.45) ABG Total CO2 (22-28) mmol/L ABG O2 Saturation (95-98) % ABG Base Excess (-2.0-3.0) mmol/L ABG Hemoglobin (11.7-17.4) g/dL ABG Carboxyhemoglobin (0.5-1.5) % POC ABG HHb (Measured) (0.0-5.0) % ABG Methemoglobin (0.0-3.0) % Marlon Test A-a O2 Difference mm/Hg Respiratory Index Hgb O2 Saturation (95.0-98.0) % Vent Mode Mechanical Rate FiO2 % Tidal Volume PEEP Sodium (132-148) mmol/L Potassium (3.6-5.2) mmol/L Chloride (98-107) mmol/L Carbon Dioxide (22-30) mmol/L Anion Gap (10-20) BUN (9-20) mg/dL Creatinine (0.8-1.5) mg/dL Est GFR ( Amer) Est GFR (Non-Af Amer) POC Glucose (mg/dL) 208 H (65-110) mg/dL Random Glucose (75-110) mg/dL Calcium (8.6-10.4) mg/dl Phosphorus (2.5-4.5) mg/dL Magnesium (1.6-2.3) mg/dL Total Bilirubin (0.2-1.3) mg/dL AST (17-59) U/L ALT (21-72) U/L Alkaline Phosphatase (38-126) U/L Total Protein (6.3-8.3) g/dL Albumin (3.5-5.0) g/dL Globulin (2.2-3.9) gm/dL Albumin/Globulin Ratio (1.0-2.1) 25-OH Vitamin D Total < 12.8 L (30.0-100.0) NG/ML Procalcitonin 0.06 L (0.19-0.49) NG/ML HSV I IgG Ab index HSV II IgG index VZV IgM Antibody (<=0.90) 12/05/17 12/05/17 12/05/17 Range/Units 11:24 06:11 06:11 WBC 6.2 (4.8-10.8) K/uL RBC 3.17 L (4.40-5.90) Mil/uL Hgb 9.4 L (12.0-18.0) g/dL Hct 27.8 L (35.0-51.0) % MCV 87.8 D (80.0-94.0) fL MCH 29.7 (27.0-31.0) pg MCHC 33.8 (33.0-37.0) g/dL RDW 13.8 (11.5-14.5) % Plt Count 196 (130-400) K/uL MPV 10.2 (7.2-11.7) fL Neut % (Auto) 86.3 H (50.0-75.0) % Lymph % (Auto) 6.6 L (20.0-40.0) % Day % (Auto) 6.9 (0.0-10.0) % Eos % (Auto) 0.0 (0.0-4.0) % Baso % (Auto) 0.2 (0.0-2.0) % Neut # (Auto) 5.4 (1.8-7.0) K/uL Lymph # (Auto) 0.4 L (1.0-4.3) K/uL Day # (Auto) 0.4 (0.0-0.8) K/uL Eos # (Auto) 0.0 (0.0-0.7) K/uL Baso # (Auto) 0.0 (0.0-0.2) K/uL Neutrophils % (Manual) 83 H (50-75) % Lymphocytes % (Manual) 12 L (20-40) % Monocytes % (Manual) 5 (0-10) % Platelet Estimate Normal (NORMAL) Hypochromasia (manual) Slight Poikilocytosis (manual Slight Anisocytosis (manual) Slight [place] Cells Slight Puncture Site pCO2 (35-45) mm/Hg pO2 (80-100) mm/Hg HCO3 (21-28) mmol/L ABG pH (7.35-7.45) ABG Total CO2 (22-28) mmol/L ABG O2 Saturation (95-98) % ABG Base Excess (-2.0-3.0) mmol/L ABG Hemoglobin (11.7-17.4) g/dL ABG Carboxyhemoglobin (0.5-1.5) % POC ABG HHb (Measured) (0.0-5.0) % ABG Methemoglobin (0.0-3.0) % Marlon Test A-a O2 Difference mm/Hg Respiratory Index Hgb O2 Saturation (95.0-98.0) % Vent Mode Mechanical Rate FiO2 % Tidal Volume PEEP Sodium 134 (132-148) mmol/L Potassium 5.2 (3.6-5.2) mmol/L Chloride 106 (98-107) mmol/L Carbon Dioxide 18 L (22-30) mmol/L Anion Gap 15 (10-20) BUN 46 H (9-20) mg/dL Creatinine 1.4 (0.8-1.5) mg/dL Est GFR ( Amer) > 60 Est GFR (Non-Af Amer) 51 POC Glucose (mg/dL) 168 H (65-110) mg/dL Random Glucose 239 H (75-110) mg/dL Calcium 7.1 L (8.6-10.4) mg/dl Phosphorus 6.3 H (2.5-4.5) mg/dL Magnesium 2.4 H (1.6-2.3) mg/dL Total Bilirubin 0.5 (0.2-1.3) mg/dL AST 32 (17-59) U/L ALT 7 L D (21-72) U/L Alkaline Phosphatase 48 (38-126) U/L Total Protein 6.2 L (6.3-8.3) g/dL Albumin 2.9 L (3.5-5.0) g/dL Globulin 3.3 (2.2-3.9) gm/dL Albumin/Globulin Ratio 0.9 L (1.0-2.1) 25-OH Vitamin D Total (30.0-100.0) NG/ML Procalcitonin (0.19-0.49) NG/ML HSV I IgG Ab index HSV II IgG index VZV IgM Antibody (<=0.90) 12/05/17 12/05/17 12/04/17 Range/Units 05:43 05:28 23:40 WBC (4.8-10.8) K/uL RBC (4.40-5.90) Mil/uL Hgb (12.0-18.0) g/dL Hct (35.0-51.0) % MCV (80.0-94.0) fL MCH (27.0-31.0) pg MCHC (33.0-37.0) g/dL RDW (11.5-14.5) % Plt Count (130-400) K/uL MPV (7.2-11.7) fL Neut % (Auto) (50.0-75.0) % Lymph % (Auto) (20.0-40.0) % Day % (Auto) (0.0-10.0) % Eos % (Auto) (0.0-4.0) % Baso % (Auto) (0.0-2.0) % Neut # (Auto) (1.8-7.0) K/uL Lymph # (Auto) (1.0-4.3) K/uL Day # (Auto) (0.0-0.8) K/uL Eos # (Auto) (0.0-0.7) K/uL Baso # (Auto) (0.0-0.2) K/uL Neutrophils % (Manual) (50-75) % Lymphocytes % (Manual) (20-40) % Monocytes % (Manual) (0-10) % Platelet Estimate (NORMAL) Hypochromasia (manual) Poikilocytosis (manual Anisocytosis (manual) [place] Cells Puncture Site Lb pCO2 33 L (35-45) mm/Hg pO2 196 H (80-100) mm/Hg HCO3 19.3 L (21-28) mmol/L ABG pH 7.34 L (7.35-7.45) ABG Total CO2 18.8 L (22-28) mmol/L ABG O2 Saturation 98.8 H (95-98) % ABG Base Excess -7.2 L (-2.0-3.0) mmol/L ABG Hemoglobin 8.9 L (11.7-17.4) g/dL ABG Carboxyhemoglobin 0.8 (0.5-1.5) % POC ABG HHb (Measured) 1.2 (0.0-5.0) % ABG Methemoglobin 0.7 (0.0-3.0) % Marlon Test Na A-a O2 Difference 48.0 mm/Hg Respiratory Index 0.2 Hgb O2 Saturation 97.3 (95.0-98.0) % Vent Mode Prvc Mechanical Rate 14 FiO2 40.0 % Tidal Volume 450 PEEP 5 Sodium (132-148) mmol/L Potassium (3.6-5.2) mmol/L Chloride (98-107) mmol/L Carbon Dioxide (22-30) mmol/L Anion Gap (10-20) BUN (9-20) mg/dL Creatinine (0.8-1.5) mg/dL Est GFR ( Amer) Est GFR (Non-Af Amer) POC Glucose (mg/dL) 268 H 217 H (65-110) mg/dL Random Glucose (75-110) mg/dL Calcium (8.6-10.4) mg/dl Phosphorus (2.5-4.5) mg/dL Magnesium (1.6-2.3) mg/dL Total Bilirubin (0.2-1.3) mg/dL AST (17-59) U/L ALT (21-72) U/L Alkaline Phosphatase (38-126) U/L Total Protein (6.3-8.3) g/dL Albumin (3.5-5.0) g/dL Globulin (2.2-3.9) gm/dL Albumin/Globulin Ratio (1.0-2.1) 25-OH Vitamin D Total (30.0-100.0) NG/ML Procalcitonin (0.19-0.49) NG/ML HSV I IgG Ab index HSV II IgG index VZV IgM Antibody (<=0.90) 12/04/17 12/03/17 12/03/17 Range/Units 17:55 10:56 10:56 WBC (4.8-10.8) K/uL RBC (4.40-5.90) Mil/uL Hgb (12.0-18.0) g/dL Hct (35.0-51.0) % MCV (80.0-94.0) fL MCH (27.0-31.0) pg MCHC (33.0-37.0) g/dL RDW (11.5-14.5) % Plt Count (130-400) K/uL MPV (7.2-11.7) fL Neut % (Auto) (50.0-75.0) % Lymph % (Auto) (20.0-40.0) % Day % (Auto) (0.0-10.0) % Eos % (Auto) (0.0-4.0) % Baso % (Auto) (0.0-2.0) % Neut # (Auto) (1.8-7.0) K/uL Lymph # (Auto) (1.0-4.3) K/uL Day # (Auto) (0.0-0.8) K/uL Eos # (Auto) (0.0-0.7) K/uL Baso # (Auto) (0.0-0.2) K/uL Neutrophils % (Manual) (50-75) % Lymphocytes % (Manual) (20-40) % Monocytes % (Manual) (0-10) % Platelet Estimate (NORMAL) Hypochromasia (manual) Poikilocytosis (manual Anisocytosis (manual) [place] Cells Puncture Site pCO2 (35-45) mm/Hg pO2 (80-100) mm/Hg HCO3 (21-28) mmol/L ABG pH (7.35-7.45) ABG Total CO2 (22-28) mmol/L ABG O2 Saturation (95-98) % ABG Base Excess (-2.0-3.0) mmol/L ABG Hemoglobin (11.7-17.4) g/dL ABG Carboxyhemoglobin (0.5-1.5) % POC ABG HHb (Measured) (0.0-5.0) % ABG Methemoglobin (0.0-3.0) % Marlon Test A-a O2 Difference mm/Hg Respiratory Index Hgb O2 Saturation (95.0-98.0) % Vent Mode Mechanical Rate FiO2 % Tidal Volume PEEP Sodium (132-148) mmol/L Potassium (3.6-5.2) mmol/L Chloride (98-107) mmol/L Carbon Dioxide (22-30) mmol/L Anion Gap (10-20) BUN (9-20) mg/dL Creatinine (0.8-1.5) mg/dL Est GFR ( Amer) Est GFR (Non-Af Amer) POC Glucose (mg/dL) 224 H (65-110) mg/dL Random Glucose (75-110) mg/dL Calcium (8.6-10.4) mg/dl Phosphorus (2.5-4.5) mg/dL Magnesium (1.6-2.3) mg/dL Total Bilirubin (0.2-1.3) mg/dL AST (17-59) U/L ALT (21-72) U/L Alkaline Phosphatase (38-126) U/L Total Protein (6.3-8.3) g/dL Albumin (3.5-5.0) g/dL Globulin (2.2-3.9) gm/dL Albumin/Globulin Ratio (1.0-2.1) 25-OH Vitamin D Total (30.0-100.0) NG/ML Procalcitonin (0.19-0.49) NG/ML HSV I IgG Ab <0.90 index HSV II IgG <0.90 index VZV IgM Antibody <=0.90 (<=0.90) Laboratory Results - last 24 hr 12/03/17 12/03/17 12/04/17 10:56 10:56 17:55 WBC RBC Hgb Hct MCV MCH MCHC RDW Plt Count MPV Neut % (Auto) Lymph % (Auto) Day % (Auto) Eos % (Auto) Baso % (Auto) Neut # (Auto) Lymph # (Auto) Day # (Auto) Eos # (Auto) Baso # (Auto) Neutrophils % (Manual) Lymphocytes % (Manual) Monocytes % (Manual) Platelet Estimate Hypochromasia (manual) Poikilocytosis (manual Anisocytosis (manual) Javier Cells Puncture Site pCO2 pO2 HCO3 ABG pH ABG Total CO2 ABG O2 Saturation ABG Base Excess ABG Hemoglobin ABG Carboxyhemoglobin POC ABG HHb (Measured) ABG Methemoglobin Marlon Test A-a O2 Difference Respiratory Index Hgb O2 Saturation Vent Mode Mechanical Rate FiO2 Tidal Volume PEEP Sodium Potassium Chloride Carbon Dioxide Anion Gap BUN Creatinine Est GFR ( Amer) Est GFR (Non-Af Amer) POC Glucose (mg/dL) 224 H Random Glucose Calcium Phosphorus Magnesium Total Bilirubin AST ALT Alkaline Phosphatase Total Protein Albumin Globulin Albumin/Globulin Ratio 25-OH Vitamin D Total Procalcitonin HSV I IgG Ab <0.90 HSV II IgG <0.90 VZV IgM Antibody <=0.90 12/04/17 12/05/17 12/05/17 23:40 05:28 05:43 WBC RBC Hgb Hct MCV MCH MCHC RDW Plt Count MPV Neut % (Auto) Lymph % (Auto) Day % (Auto) Eos % (Auto) Baso % (Auto) Neut # (Auto) Lymph # (Auto) Day # (Auto) Eos # (Auto) Baso # (Auto) Neutrophils % (Manual) Lymphocytes % (Manual) Monocytes % (Manual) Platelet Estimate Hypochromasia (manual) Poikilocytosis (manual Anisocytosis (manual) [place] Cells Puncture Site Lb pCO2 33 L pO2 196 H HCO3 19.3 L ABG pH 7.34 L ABG Total CO2 18.8 L ABG O2 Saturation 98.8 H ABG Base Excess -7.2 L ABG Hemoglobin 8.9 L ABG Carboxyhemoglobin 0.8 POC ABG HHb (Measured) 1.2 ABG Methemoglobin 0.7 Marlon Test Na A-a O2 Difference 48.0 Respiratory Index 0.2 Hgb O2 Saturation 97.3 Vent Mode Prvc Mechanical Rate 14 FiO2 40.0 Tidal Volume 450 PEEP 5 Sodium Potassium Chloride Carbon Dioxide Anion Gap BUN Creatinine Est GFR ( Amer) Est GFR (Non-Af Amer) POC Glucose (mg/dL) 217 H 268 H Random Glucose Calcium Phosphorus Magnesium Total Bilirubin AST ALT Alkaline Phosphatase Total Protein Albumin Globulin Albumin/Globulin Ratio 25-OH Vitamin D Total Procalcitonin HSV I IgG Ab HSV II IgG VZV IgM Antibody 12/05/17 12/05/17 12/05/17 06:11 06:11 11:24 WBC 6.2 RBC 3.17 L Hgb 9.4 L Hct 27.8 L MCV 87.8 D MCH 29.7 MCHC 33.8 RDW 13.8 Plt Count 196 MPV 10.2 Neut % (Auto) 86.3 H Lymph % (Auto) 6.6 L Day % (Auto) 6.9 Eos % (Auto) 0.0 Baso % (Auto) 0.2 Neut # (Auto) 5.4 Lymph # (Auto) 0.4 L Day # (Auto) 0.4 Eos # (Auto) 0.0 Baso # (Auto) 0.0 Neutrophils % (Manual) 83 H Lymphocytes % (Manual) 12 L Monocytes % (Manual) 5 Platelet Estimate Normal Hypochromasia (manual) Slight Poikilocytosis (manual Slight Anisocytosis (manual) Slight Javier Cells Slight Puncture Site pCO2 pO2 HCO3 ABG pH ABG Total CO2 ABG O2 Saturation ABG Base Excess ABG Hemoglobin ABG Carboxyhemoglobin POC ABG HHb (Measured) ABG Methemoglobin Marlon Test A-a O2 Difference Respiratory Index Hgb O2 Saturation Vent Mode Mechanical Rate FiO2 Tidal Volume PEEP Sodium 134 Potassium 5.2 Chloride 106 Carbon Dioxide 18 L Anion Gap 15 BUN 46 H Creatinine 1.4 Est GFR ( Amer) > 60 Est GFR (Non-Af Amer) 51 POC Glucose (mg/dL) 168 H Random Glucose 239 H Calcium 7.1 L Phosphorus 6.3 H Magnesium 2.4 H Total Bilirubin 0.5 AST 32 ALT 7 L D Alkaline Phosphatase 48 Total Protein 6.2 L Albumin 2.9 L Globulin 3.3 Albumin/Globulin Ratio 0.9 L 25-OH Vitamin D Total Procalcitonin HSV I IgG Ab HSV II IgG VZV IgM Antibody 12/05/17 12/05/17 12/05/17 15:57 15:57 17:56 WBC RBC Hgb Hct MCV MCH MCHC RDW Plt Count MPV Neut % (Auto) Lymph % (Auto) Day % (Auto) Eos % (Auto) Baso % (Auto) Neut # (Auto) Lymph # (Auto) Day # (Auto) Eos # (Auto) Baso # (Auto) Neutrophils % (Manual) Lymphocytes % (Manual) Monocytes % (Manual) Platelet Estimate Hypochromasia (manual) Poikilocytosis (manual Anisocytosis (manual) Javier Cells Puncture Site pCO2 pO2 HCO3 ABG pH ABG Total CO2 ABG O2 Saturation ABG Base Excess ABG Hemoglobin ABG Carboxyhemoglobin POC ABG HHb (Measured) ABG Methemoglobin Marlon Test A-a O2 Difference Respiratory Index Hgb O2 Saturation Vent Mode Mechanical Rate FiO2 Tidal Volume PEEP Sodium Potassium Chloride Carbon Dioxide Anion Gap BUN Creatinine Est GFR ( Amer) Est GFR (Non-Af Amer) POC Glucose (mg/dL) 208 H Random Glucose Calcium Phosphorus Magnesium Total Bilirubin AST ALT Alkaline Phosphatase Total Protein Albumin Globulin Albumin/Globulin Ratio 25-OH Vitamin D Total < 12.8 L Procalcitonin 0.06 L HSV I IgG Ab HSV II IgG VZV IgM Antibody Critical Care Progress Note - Nutrition Nutrition: Nutrition Category Date Time Status NPO Diet [DIET] Diets 12/03/17 Breakfast Active Attending/Attestation - Attestation I have personally seen and examined this patient.: Yes I have fully participated in the care of the patient.: Yes I have reviewed all pertinent clinical information: Yes Notes (Text): 12/05/17 18:06 patient seen and examined in the intensive care unit. Extubated after weaning trial and cleared by ENT Continue to monitor in ICU Swallowing evaluation Continue IV steroids and antibiotics
--- NOTE | 2017-12-05 22:51 | CON ---
DATE: 12/03/2017 REASON FOR CONSULTATION: Epiglottitis. HISTORY OF PRESENT ILLNESS: This is a 67-year-old male who presented to the ER with shortness of breath. It was moderate, constant, he has had it for a few hours. The patient was given steroids and had a CAT scan done, which showed enlarged epiglottis. At this point, the patient still has shortness of breath and some mild stridor. PAST MEDICAL HISTORY: As noted in the chart by me. MEDICATIONS: As noted in the chart by me. PHYSICAL EXAMINATION: HEAD: Atraumatic and normocephalic. FACE: Good facial movements bilaterally. CONSTITUTIONAL: Well fed, well nourished. COMMUNICATION: Communicates well and appropriately. EXTERNAL NOSE AND EARS: No masses. No lesions. No erythema. No edema. INTERNAL NOSE AND EARS: Deviated septum. No masses. No lesions. No erythema. No edema. ORAL CAVITY AND OROPHARYNX: No masses. No lesions. No erythema. No edema. LIPS AND GUMS: No masses. No lesions. No erythema. No edema. NECK: Supple. THYROID: No thyromegaly. No goiter. LYMPH NODES: No lymphadenopathy of the neck. RADIOLOGY: CAT scan was reviewed by me, it shows enlarged epiglottis. ASSESSMENT: 1. Epiglottitis. 2. Airway obstructions. 3. Deviated septum. PLAN: The patient should go to the operating room for intubation and for the airway to be secured. Galileo Graves MD
--- NOTE | 2017-12-05 22:59 | OP ---
PROCEDURE DATE: 12/03/2017 PREOPERATIVE DIAGNOSIS: Epiglottitis, airway obstruction. POSTOPERATIVE DIAGNOSIS: Epiglottitis, airway obstruction. PROCEDURE: Direct laryngoscopy. SIGNIFICANT FINDINGS: No masses, no lesions, no erythema, no edema of the airway. Airway okay. DESCRIPTION OF PROCEDURE: The patient was already intubated. He was placed in supine position. Anesthesia had been initiated through an IV. A bite guard was placed over the upper jaw in order to protect them. Direct laryngoscope was inserted into the oral cavity, passed through the oropharynx and hypopharynx. The base of tongue, vallecula, epiglottis, AE folds, false cords, true cords, pyriform sinuses, pharyngeal presley, arytenoids were brought into view. No masses or lesions were noted. No erythema or edema was noted. The airway was noted to be patent. The scope was removed. The patient tolerated the procedure well. Galileo Graves MD
--- NOTE | 2017-12-05 23:01 | CP.PCM.PN ---
Subjective - Date & Time of Evaluation Date of Evaluation: 12/05/17 Time of Evaluation: 03:00 - Subjective Subjective: dictated Objective - Vital Signs/Intake and Output Vital Signs (last 24 hours): Temp Pulse Resp BP Pulse Ox 98.2 F 74 17 151/77 H 100 12/05/17 19:52 12/05/17 21:02 12/05/17 21:02 12/05/17 21:02 12/05/17 21:02 Intake and Output: 12/05/17 12/06/17 18:59 06:59 Intake Total 1100 300 Output Total 800 Balance 300 300 - Medications Medications: Current Medications Dexamethasone (Decadron Inj) 10 mg IVP Q12H [facility] Last Admin: 12/05/17 19:36 Dose: 10 mg Heparin Sodium (Porcine) (Heparin) 5,000 units SC Q8 [facility] Last Admin: 12/05/17 17:00 Dose: 5,000 units Sodium Chloride (Sodium Chloride 0.45%) 1,000 mls @ 100 mls/hr IV .Q10H [facility] Last Admin: 12/05/17 17:05 Dose: 100 mls/hr Ceftriaxone Sodium (Rocephin Iv 1 Gm Duplex) 50 mls @ 100 mls/hr IVPB Q12H [facility] PRN Reason: Protocol Last Admin: 12/05/17 19:36 Dose: 100 mls/hr Clindamycin Phosphate (Cleocin In Normal Saline) 600 mg in 50 mls @ 100 mls/hr IVPB Q8H [facility] PRN Reason: Protocol Last Admin: 12/05/17 17:00 Dose: 100 mls/hr Insulin Human Regular (Novolin R) 0 unit SC Q6 [facility] PRN Reason: Protocol Last Admin: 12/05/17 18:08 Dose: 1 unit Lorazepam (Ativan) 1 mg IVP Q6H PRN PRN Reason: Anxiety Last Admin: 12/03/17 05:30 Dose: 1 mg Pantoprazole Sodium (Protonix Inj) 40 mg IVP DAILY [facility] Last Admin: 12/05/17 10:11 Dose: 40 mg - Labs Labs: 12/05/17 06:11 12/05/17 06:11 APTT 36 SECONDS (21-34) H 12/04/17 05:55
[2017-12-06] MEDS: Sodium Chloride 0.45% 1,000 ML IV SCH ×2 (01:42→06:05)
--- NOTE | 2017-12-06 03:41 | PN ---
DATE: SUBJECTIVE: The patient was seen this afternoon. He was on a Ventimask, and he was nodding that he is better. OBJECTIVE: VITAL SIGNS: T-max is 98.2, pulse 74, blood pressure 144/71, respirations were 20. GENERAL: He seems to be in no respiratory distress. NECK: Supple. LUNGS: Clear. HEART: S1, S2 is regular. ABDOMEN: Soft, nontender. No guarding, no rigidity present. Micro medellin, his cultures have been all negative. He came in with acute epiglottitis with respiratory distress and was intubated, and is on Rocephin as well as clindamycin at this time and Decadron. He is also being followed by ENT, and he was in ICU. Ilda Perales MD
[2017-12-06] MEDS: (Novolin R) Insulin Human Regular 100 units/ml vial SC SCH ×4 (06:04→21:48)
[2017-12-06 06:33] LABS: HEMOGLOBIN 8.3 g/dL (12.0-18.0); LYMPH # 0.3 K/uL (1.0-4.3); LYMPH % 7.4 % (20.0-40.0); MEAN CELL VOLUME 86.6 fL (80.0-94.0); MEAN CORPUSCULAR HEMOGLOBIN 29.9 pg (27.0-31.0); MEAN CORPUSCULAR HGB CONC 34.5 g/dL (33.0-37.0); MEAN PLATELET VOLUME 10.3 fL (7.2-11.7); MONO # 0.3 K/uL (0.0-0.8); NEUT # 3.9 K/uL (1.8-7.0); NEUT % 85.6 % (50.0-75.0); PLATELET COUNT 209 K/uL (130-400); RBC 2.76 Mil/uL (4.40-5.90); RED CELL DISTRIBUTION WIDTH 13.3 % (11.5-14.5); WHITE BLOOD COUNT 4.6 K/uL (4.8-10.8)
[2017-12-06 06:45] LABS: ALB/GLOB RATIO 0.9 (1.0-2.1); ALBUMIN 2.4 g/dL (3.5-5.0); ALT/SGPT 18 U/L (21-72); AST/SGOT 17 U/L (17-59); BLOOD UREA NITROGEN 39 mg/dL (9-20); CALCIUM 6.3 mg/dl (8.6-10.4); GFR AFRICAN-AMERICAN > 60; GFR NON-AFRICAN AMERICAN > 60
[2017-12-06] MEDS: Clindamycin 600mg/50ml NS 600 MG/50 ML BAG IVPB SCH ×2 (07:39→16:50)
[2017-12-06 08:16] LABS: LYMPHOCYTE 5 % (20-40); MONOCYTE 10 % (0-10); NEUTROPHIL 85 % (50-75); PLATELET ESTIMATE NORMAL (NORMAL); TOTAL CELLS COUNTED 100
[2017-12-06 08:17] LABS: ANISOCYTOSIS SLIGHT; BURR CELLS SLIGHT; HYPOCHROMIC SLIGHT; LARGE PLATELETS PRESENT; POIKILOCYTOSIS SLIGHT
[2017-12-06] MEDS: cefTRIAXone IV 1 gm in Dextros 50 ML IVPB SCH ×2 (08:19→20:15)
[2017-12-06] MEDS: Dexamethasone 4 mg/1 ml IVP SCH ×2 (09:28→21:30)
--- NOTE | 2017-12-06 10:02 | CP.PCM.PN ---
Subjective - Date & Time of Evaluation Date of Evaluation: 12/06/17 Time of Evaluation: 10:00 - Subjective Subjective: Medical Attending Note: Patient seen and examined at bedside. Patient denies pain, reports he is breathing well, reports he went to to the bathroom. Patient was evaluated by swallow eval; passed swallow eval; advanced to soft diet; patient downgraded by ICU today. Will need to discuss with ID and ENT for discharge planning. Objective - Vital Signs/Intake and Output Vital Signs (last 24 hours): Temp Pulse Resp BP Pulse Ox 97.9 F 68 17 147/75 96 12/06/17 08:00 12/06/17 09:02 12/06/17 09:02 12/06/17 09:02 12/06/17 09:02 Intake and Output: 12/06/17 12/06/17 06:59 18:59 Intake Total 1300 400 Output Total 375 Balance 925 400 - Medications Medications: Current Medications Dexamethasone (Decadron Inj) 4 mg IVP Q12H [facility] Last Admin: 12/06/17 09:28 Dose: Not Given Heparin Sodium (Porcine) (Heparin) 5,000 units SC Q8 [facility] Last Admin: 12/06/17 06:04 Dose: 5,000 units Ceftriaxone Sodium (Rocephin Iv 1 Gm Duplex) 50 mls @ 100 mls/hr IVPB Q12H [facility] PRN Reason: Protocol Last Admin: 12/06/17 08:19 Dose: 100 mls/hr Clindamycin Phosphate (Cleocin In Normal Saline) 600 mg in 50 mls @ 100 mls/hr IVPB Q8H [facility] PRN Reason: Protocol Last Admin: 12/06/17 07:39 Dose: 100 mls/hr Insulin Human Regular (Novolin R) 0 unit SC ACHS [facility] PRN Reason: Protocol Lorazepam (Ativan) 1 mg IVP Q6H PRN PRN Reason: Anxiety Last Admin: 12/03/17 05:30 Dose: 1 mg Pantoprazole Sodium (Protonix Inj) 40 mg IVP DAILY [facility] Last Admin: 12/06/17 09:39 Dose: 40 mg - Labs Labs: 12/06/17 06:19 12/06/17 06:19 APTT 36 SECONDS (21-34) H 12/04/17 05:55 - Constitutional Appears: Non-toxic, No Acute Distress - Head Exam Head Exam: NORMAL INSPECTION - Eye Exam Eye Exam: EOMI - ENT Exam ENT Exam: Mucous Membranes Moist - Respiratory Exam Respiratory Exam: Clear to Ausculation Bilateral. absent: Rales, Rhonchi, Wheezes, Stridor - Cardiovascular Exam Cardiovascular Exam: REGULAR RHYTHM, +S1, +S2 - GI/Abdominal Exam GI & Abdominal Exam: Soft, Normal Bowel Sounds. absent: Distended, Firm, Guarding, Rigid, Tenderness, Rebound - Extremities Exam Extremities Exam: absent: Pedal Edema, Tenderness - Neurological Exam Neurological Exam: Alert, Awake, Oriented x3 - Psychiatric Exam Psychiatric exam: Normal Affect, Normal Mood - Skin Skin Exam: Dry, Normal Color, Warm Assessment and Plan (1) Acute epiglottitis with airway obstruction Status: Acute (2) Diabetes Status: Chronic (3) Hypertension Status: Chronic (4) Acute renal insufficiency Status: Acute (5) Prophylactic measure Status: Acute Attending/Attestation - Attestation I have personally seen and examined this patient.: Yes I have fully participated in the care of the patient.: Yes I have reviewed all pertinent clinical information, including history, physical exam and plan: Yes Notes (Text): (1) Acute epiglottitis with airway obstruction Retropharyneal Abscess Assessment & Plan: * ENT (Dr. Graves) on consult-->help appreciated * ID (Dr. Perales) on consult-->help appreciated * CT Soft Tissue Neck with contrast (12/02/17): massively enlarged epiglottis secondary to likely acute infectious/inflammatory process with mass effect upon airway although airway is patent, rounded fluid density along the anterior aspect of C3-4 that is possible early developing retropharyngeal abscess. * Chest xray (12/04/17): no active disease * Patient was intubated prophylactically by anesthesia on admission. * Extubated 12/05/17 * Swallow eval passed Advanced to soft diet * IV Abx: * Ceftriaxone 1 gm IV Q12H (12/04/17) * Clindamycin 600 mg IV Q6H (12/04/17) * Dexamethasone 4 mg IV Q12H * F/U Herpes Simplex Virus 1/2: pending * Varicella Zoster Virus IgG: positive * Influenza: negative * F/U Xiao Armstrong Virus * Group A Strep: negative * Blood Culture (12/03/17): no growth after 3 days X2 * MRSA (12/03/17): not detected * Urine culture (12/03/17): no growth * Throat (12/03/17): no beta strep group A isolated Status: Acute (2) Diabetes Assessment & Plan: * Accuchecks QAC and HS * Hgba1c: 7.0 * Hold Metformin Status: Chronic (3) Hypertension Assessment & Plan: * Normotensive * Monitor vital signs Status: Chronic (4) Acute renal insufficiency Assessment & Plan: * monitor BUN/Cr Status: Acute (5) Electrolyte Abnormalities Assessment & Plan: * Awaiting ionized calcium, PTH, Vitamin D * Correct calcium: 7.58 * Patient to restart diet today since passing swallow eval * Vitamin D is low-->will start Vitamin D 50,000 IU once day for 8-12 weeks (6) Prophylactic measure * Assessment & Plan: * Heparin 5000 units subq8H for DVT ppx * Protonix 40mg IV q daily for GI ppx Status: Acute
[2017-12-06] MEDS ORDERED: Ergocalciferol 50,000 Intl Units Cap PO SCH (11:00)
--- NOTE | 2017-12-06 13:49 | CP.PCM.PN ---
Subjective - Date & Time of Evaluation Date of Evaluation: 12/06/17 Time of Evaluation: 01:40 - Subjective Subjective: dictated Objective - Vital Signs/Intake and Output Vital Signs (last 24 hours): Temp Pulse Resp BP Pulse Ox 97.8 F 72 19 166/86 H 97 12/06/17 12:00 12/06/17 12:00 12/06/17 12:00 12/06/17 12:00 12/06/17 12:00 Intake and Output: 12/06/17 12/06/17 06:59 18:59 Intake Total 1300 400 Output Total 375 300 Balance 925 100 - Medications Medications: Current Medications Dexamethasone (Decadron Inj) [address] [facility] Last Admin: 12/06/17 09:28 Dose: Not Given Ergocalciferol (Drisdol 50,000 Intl Units Cap) [address] [facility] Last Admin: 12/06/17 11:50 Dose: 1 cap Heparin Sodium (Porcine) (Heparin) 5,[address] [facility] Last Admin: 12/06/17 06:04 Dose: 5,000 units Ceftriaxone Sodium (Rocephin Iv 1 Gm Duplex) 50 mls @ 100 mls/hr IVPB Q12H [facility] PRN Reason: Protocol Last Admin: 12/06/17 08:19 Dose: 100 mls/hr Clindamycin Phosphate (Cleocin In Normal Saline) 600 mg in 50 mls @ 100 mls/hr IVPB Q8H [facility] PRN Reason: Protocol Last Admin: 12/06/17 07:39 Dose: 100 mls/hr Insulin Human Regular (Novolin R) 0 unit SC ACHS [facility] PRN Reason: Protocol Last Admin: 12/06/17 11:49 Dose: 4 unit Pantoprazole Sodium (Protonix Inj) [address] [facility] Last Admin: 12/06/17 09:39 Dose: 40 mg Saccharomyces Boulardii (Florastor) 250 mg PO BID [facility] - Labs Labs: 12/06/17 06:19 12/06/17 06:19 APTT 36 SECONDS (21-34) H 12/04/17 05:55
[2017-12-06] MEDS: Saccharomyces Boulardi 250 mg Cap PO SCH (18:35)
--- NOTE | 2017-12-07 02:46 | PN ---
DATE: 12/06/2017. SUBJECTIVE: The patient was seen today. He is awake, alert. He says he has no difficulty breathing or no difficulties swallowing and he feels better. His food was, however, sitting there, he had no appetite to eat. Case was discussed with Dr. Rivera, and he was going to check with the ENT. If there is abscess, we probably can discontinue the clindamycin, and if he is able to swallow well and tolerate diet and I believe, he is trying to speak and his speech was normal according to the family members also. PHYSICAL EXAMINATION: VITAL SIGNS: T-max is 97.8, pulse 73, blood pressure 177/87, respiratory rate 17. HEENT: Head is atraumatic. NECK: Supple. There was no lymphadenopathy present in the neck. HEART: S1, S2 is regular. LUNGS: Clear. ABDOMEN: Soft, nontender. EXTREMITIES: No edema. [place], we did order labs. We ordered for parainfluenza which was influenza type 1, 2, 3, which is pending. Influenza antibodies, IgG was positive, IgM was negative, so he is immune. His EBV, IgG came elevated. as IgM was negative. ASSESSMENT AND PLAN: So he had acute epiglottitis, and he is on antibiotics. If he continues to improve and if he is cleared by ENT, then probably, we will see if he can go home by the end of the week. We will follow. Ilda Perales MD
[2017-12-07 06:36] LABS: BASO % 0.3 % (0.0-2.0); EOS % 0.2 % (0.0-4.0); HEMOGLOBIN 8.6 g/dL (12.0-18.0); LYMPH # 0.5 K/uL (1.0-4.3); LYMPH % 14.9 % (20.0-40.0); MEAN CELL VOLUME 87.7 fL (80.0-94.0); MEAN CORPUSCULAR HEMOGLOBIN 29.1 pg (27.0-31.0); MEAN CORPUSCULAR HGB CONC 33.2 g/dL (33.0-37.0); MEAN PLATELET VOLUME 10.2 fL (7.2-11.7); MONO # 0.3 K/uL (0.0-0.8); MONO % 8.4 % (0.0-10.0); NEUT # 2.7 K/uL (1.8-7.0); NEUT % 76.2 % (50.0-75.0); NRBC % 0.1 % (0.0-2.0); RBC 2.95 Mil/uL (4.40-5.90); RED CELL DISTRIBUTION WIDTH 13.1 % (11.5-14.5); WHITE BLOOD COUNT 3.5 K/uL (4.8-10.8)
[2017-12-07 06:49] LABS: ALB/GLOB RATIO 0.9 (1.0-2.1); ALBUMIN 2.7 g/dL (3.5-5.0); ALT/SGPT 18 U/L (21-72); AST/SGOT 22 U/L (17-59); BLOOD UREA NITROGEN 38 mg/dL (9-20); CALCIUM 6.9 mg/dl (8.6-10.4); GFR AFRICAN-AMERICAN > 60; GFR NON-AFRICAN AMERICAN > 60
[2017-12-07] MEDS: Clindamycin 600mg/50ml NS 600 MG/50 ML BAG IVPB SCH ×2 (07:36)
[2017-12-07] MEDS: cefTRIAXone IV 1 gm in Dextros 50 ML IVPB SCH ×2 (08:15→20:30)
[2017-12-07] MEDS: (Novolin R) Insulin Human Regular 100 units/ml vial SC SCH ×4 (08:17→22:01)
[2017-12-07] MEDS: Pantoprazole 40 mg EC Tab PO SCH (09:13)
[2017-12-07] MEDS: Saccharomyces Boulardi 250 mg Cap PO SCH ×2 (09:13→17:53)
[2017-12-07] MEDS: Dexamethasone 4 mg/1 ml IVP SCH ×2 (09:13→20:25)
--- NOTE | 2017-12-07 09:16 | CP.PCM.PN ---
Subjective - Date & Time of Evaluation Date of Evaluation: 12/07/17 Time of Evaluation: 09:10 - Subjective Subjective: Medical Attending Note: Patient seen and examined at bedside. Patient's son at bedside assisting in translation. Patient reports he is swallowing good, denies chills, denies headache, denies chest pain, denies abdominal pain, denies nausea, reports he is urinating, he has not had a bowel movement yet. We will need to coordinate with ENT and ID for discharge planning. Objective - Vital Signs/Intake and Output Vital Signs (last 24 hours): Temp Pulse Resp BP Pulse Ox 98.2 F 70 16 142/74 98 12/07/17 07:30 12/07/17 07:30 12/07/17 07:30 12/06/17 20:00 12/07/17 07:30 Intake and Output: 12/07/17 12/07/17 06:59 18:59 Intake Total 0 0 Balance 0 0 - Medications Medications: Current Medications Amlodipine Besylate (Norvasc) 10 mg PO DAILY [facility] Last Admin: 12/06/17 16:59 Dose: 10 mg Dexamethasone (Decadron Inj) 4 mg IVP Q12H [facility] Last Admin: 12/06/17 21:30 Dose: 4 mg Ergocalciferol (Drisdol 50,000 Intl Units Cap) 1 cap PO Q7D [facility] Last Admin: 12/06/17 11:50 Dose: 1 cap Heparin Sodium (Porcine) (Heparin) 5,000 units SC Q8 [facility] Last Admin: 12/07/17 06:06 Dose: 5,000 units Ceftriaxone Sodium (Rocephin Iv 1 Gm Duplex) 50 mls @ 100 mls/hr IVPB Q12H [facility] PRN Reason: Protocol Last Admin: 12/06/17 20:15 Dose: 100 mls/hr Clindamycin Phosphate (Cleocin In Normal Saline) 600 mg in 50 mls @ 100 mls/hr IVPB Q8H [facility] PRN Reason: Protocol Last Admin: 12/07/17 07:36 Dose: 100 mls/hr Insulin Human Regular (Novolin R) 0 unit SC ACHS [facility] PRN Reason: Protocol Last Admin: 12/07/17 08:17 Dose: 3 unit Pantoprazole Sodium (Protonix Ec Tab) 40 mg PO DAILY [facility] Saccharomyces Boulardii (Florastor) 250 mg PO BID [facility] Last Admin: 12/06/17 18:35 Dose: 250 mg - Labs Labs: 12/07/17 06:24 12/07/17 06:24 APTT 36 SECONDS (21-34) H 12/04/17 05:55 - Constitutional Appears: Non-toxic, No Acute Distress - Head Exam Head Exam: NORMAL INSPECTION - Eye Exam Eye Exam: EOMI - ENT Exam ENT Exam: Mucous Membranes Moist - Respiratory Exam Respiratory Exam: Clear to Ausculation Bilateral, NORMAL BREATHING PATTERN. absent: Rales, Rhonchi, Wheezes - Cardiovascular Exam Cardiovascular Exam: REGULAR RHYTHM, +S1, +S2 - GI/Abdominal Exam GI & Abdominal Exam: Soft, Normal Bowel Sounds. absent: Distended, Firm, Guarding, Rigid, Tenderness, Rebound - Extremities Exam Extremities Exam: absent: Pedal Edema, Tenderness - Neurological Exam Neurological Exam: Alert, Awake, Oriented x3 - Psychiatric Exam Psychiatric exam: Normal Affect, Normal Mood - Skin Skin Exam: Dry, Intact, Normal Color, Warm Assessment and Plan (1) Acute epiglottitis with airway obstruction Status: Acute (2) Diabetes Status: Chronic (3) Hypertension Status: Chronic (4) Acute renal insufficiency Status: Acute (5) Prophylactic measure Status: Acute Attending/Attestation - Attestation I have personally seen and examined this patient.: Yes I have fully participated in the care of the patient.: Yes I have reviewed all pertinent clinical information, including history, physical exam and plan: Yes Notes (Text): (1) Acute epiglottitis with airway obstruction Retropharyneal Abscess Assessment & Plan: * ENT (Dr. Graves) on consult-->help appreciated * ID (Dr. Perales) on consult-->help appreciated * CT Soft Tissue Neck with contrast (12/02/17): massively enlarged epiglottis secondary to likely acute infectious/inflammatory process with mass effect upon airway although airway is patent, rounded fluid density along the anterior aspect of C3-4 that is possible early developing retropharyngeal abscess. * Chest xray (12/04/17): no active disease * Patient was intubated prophylactically by anesthesia on admission. * Extubated 12/05/17 * Swallow eval passed Advanced to soft diet * IV Abx: * Ceftriaxone 1 gm IV Q12H (12/04/17) * Clindamycin 600 mg IV Q6H (12/04/17) * Dexamethasone 4 mg IV Q12H--->lower tomorrow and switch to PO * F/U Herpes Simplex Virus 1/2: pending * Varicella Zoster Virus IgG: positive * Influenza: negative * F/U Xiao Armstrong Virus * Group A Strep: negative * Blood Culture (12/03/17): no growth after 4 days X2 * MRSA (12/03/17): not detected * Urine culture (12/03/17): no growth * Throat (12/03/17): no beta strep group A isolated Status: Acute (2) Diabetes Assessment & Plan: * Accuchecks QAC and HS * Hgba1c: 7.0 * Restart home medications Status: Chronic (3) Hypertension Assessment & Plan: * Restart Norvasc 10mg PO daily * Monitor vital signs Status: Chronic (4) Acute renal insufficiency Assessment & Plan: * monitor BUN/Cr Status: Acute (5) Electrolyte Abnormalities Assessment & Plan: * Likely secondary to decadron due to increase calcium excretion * Awaiting ionized calcium, PTH, Vitamin D * Correct calcium: 7.58 * Patient to restart diet today since passing swallow eval * Vitamin D is low-->will start Vitamin D 50,000 IU once day for 8-12 weeks (6) Prophylactic measure * Assessment & Plan: * Heparin 5000 units subq8H for DVT ppx * Protonix 40mg IV q daily for GI ppx Status: Acute
[2017-12-07] MEDS: Phenol Topical 1.4% Throat Spray (180 ml) MT PRN (16:45)
--- NOTE | 2017-12-07 18:07 | CP.PCM.PN ---
Subjective - Date & Time of Evaluation Date of Evaluation: 12/07/17 Time of Evaluation: 03:00 - Subjective Subjective: dictated Objective - Vital Signs/Intake and Output Vital Signs (last 24 hours): Temp Pulse Resp BP Pulse Ox 98.4 F 80 16 147/74 98 12/07/17 16:00 12/07/17 16:00 12/07/17 07:30 12/07/17 16:00 12/07/17 16:00 Intake and Output: 12/07/17 12/07/17 06:59 18:59 Intake Total 0 0 Balance 0 0 - Medications Medications: Current Medications Amlodipine Besylate (Norvasc) 10 mg PO DAILY [facility] Last Admin: 12/07/17 09:13 Dose: 10 mg Dexamethasone (Decadron Inj) 4 mg IVP Q12H [facility] Last Admin: 12/07/17 09:13 Dose: 4 mg Docusate Sodium (Colace) 100 mg PO BID [facility] Last Admin: 12/07/17 17:54 Dose: 100 mg Ergocalciferol (Drisdol 50,000 Intl Units Cap) 1 cap PO Q7D [facility] Last Admin: 12/06/17 11:50 Dose: 1 cap Heparin Sodium (Porcine) (Heparin) 5,000 units SC Q8 [facility] Last Admin: 12/07/17 14:18 Dose: 5,000 units Ceftriaxone Sodium (Rocephin Iv 1 Gm Duplex) 50 mls @ 100 mls/hr IVPB Q12H [facility] PRN Reason: Protocol Last Admin: 12/07/17 08:15 Dose: 100 mls/hr Insulin Human Regular (Novolin R) 0 unit SC ACHS ALAN PRN Reason: Protocol Last Admin: 12/07/17 16:45 Dose: 2 unit Metformin HCl (Glucophage) 500 mg PO BID [facility] Last Admin: 12/07/17 17:54 Dose: 500 mg Pantoprazole Sodium (Protonix Ec Tab) 40 mg PO DAILY [facility] Last Admin: 12/07/17 09:13 Dose: 40 mg Phenol/Menthol (Phenaseptic 1.4% Throat [place]) 1 ml MT Q4 PRN PRN Reason: Sore Throat Last Admin: 12/07/17 16:45 Dose: 1 spr Saccharomyces Boulardii (Florastor) 250 mg PO BID [facility] Last Admin: 12/07/17 17:53 Dose: 250 mg - Labs Labs: 12/07/17 06:24 12/07/17 06:24 APTT 36 SECONDS (21-34) H 12/04/17 05:55
[2017-12-07 18:32] VITALS: RESP 20
--- NOTE | 2017-12-07 22:29 | PN ---
DATE: INFECTIOUS DISEASE FOLLOWUP SUBJECTIVE: I went to see him today. He said he was feeling well this morning but when he got the pills after that, he started to feel as if they were still stuck in his throat, and he ate pureed soft diet from home which he tolerated well. He is doing better. He denies any pain. I had tried to look up in his throat but cannot see beyond the anterior part. PHYSICAL EXAMINATION: VITAL SIGNS: T-max is 98.4, pulse 80, blood pressure 147/74, respirations are 16. He appears to be having no pain now. HEENT: Head is atraumatic. NECK: Supple. LUNGS: Clear. HEART: S1 and S2 regular. ABDOMEN: Soft, nontender. No guarding, no rigidity present. EXTREMITIES: Have no edema. LABORATORY DATA: White count is 3.5, hemoglobin 8.6, hematocrit 25.9, platelet count is 153, BUN is 19, creatinine is 1.2. I have discontinued clindamycin, to continue Rocephin for now, and to check with the ENT. If there is no doubt about a retropharyngeal abscess being present, I think he can go home on Augmentin for next 10 days, and if he is tolerating diet, should take soft diet for this week as he was intubated recently and had epiglottitis, and just to get the clearance with ENT as they were talking about some collection on the CAT scan. Ilda Perales MD cc:
[2017-12-08 07:41] LABS: BASO % 0.2 % (0.0-2.0); EOS % 0.5 % (0.0-4.0); HEMOGLOBIN 9.4 g/dL (12.0-18.0); LYMPH # 0.9 K/uL (1.0-4.3); LYMPH % 17.5 % (20.0-40.0); MEAN CORPUSCULAR HEMOGLOBIN 29.4 pg (27.0-31.0); MEAN CORPUSCULAR HGB CONC 34.3 g/dL (33.0-37.0); MONO # 0.5 K/uL (0.0-0.8); MONO % 10.2 % (0.0-10.0); NEUT # 3.6 K/uL (1.8-7.0); NEUT % 71.6 % (50.0-75.0); RBC 3.2 Mil/uL (4.40-5.90); RED CELL DISTRIBUTION WIDTH 13.1 % (11.5-14.5)
[2017-12-08 07:52] LABS: MEAN CELL VOLUME 85.6 fL (80.0-94.0)
[2017-12-08 07:59] LABS: ALB/GLOB RATIO 0.9 (1.0-2.1); ALBUMIN 2.7 g/dL (3.5-5.0); ALT/SGPT 16 U/L (21-72); AST/SGOT 17 U/L (17-59); BLOOD UREA NITROGEN 29 mg/dL (9-20); CALCIUM 7.3 mg/dl (8.6-10.4); GFR AFRICAN-AMERICAN > 60; GFR NON-AFRICAN AMERICAN > 60
[2017-12-08] MEDS: (Novolin R) Insulin Human Regular 100 units/ml vial SC SCH ×2 (08:30→12:18)
[2017-12-08] MEDS: cefTRIAXone IV 1 gm in Dextros 50 ML IVPB SCH (09:00)
[2017-12-08] MEDS: Pantoprazole 40 mg EC Tab PO SCH (09:19)
[2017-12-08] MEDS: Saccharomyces Boulardi 250 mg Cap PO SCH (09:19)
[2017-12-08] MEDS: Dexamethasone 4 mg/1 ml IVP SCH (09:20)
[2017-12-08] MEDS: Phenol Topical 1.4% Throat Spray (180 ml) MT PRN (09:21)
--- NOTE | 2017-12-08 14:17 | CON ---
DATE: LOCATION: In room 360. HISTORY OF PRESENT ILLNESS: This is a 67-year-old male with severe odynophagia and dysphagia and very nil oral intake and has been evaluated to have severe acute epiglottitis and is being followed closely by ENT and has been started on IV steroid therapy and is being referred now for evaluation of hypocalcemia and possible hypoparathyroidism. PAST MEDICAL HISTORY: History of type 2 diabetes, currently on metformin taken as 500 mg b.i.d.; history of hypertension, on Norvasc given as 5 mg once daily. FAMILY HISTORY: No known thyroid endocrinopathy and positive for diabetes and hypertension. SOCIAL HISTORY: The patient has a supportive family. No known substance use. REVIEW OF SYSTEMS: As mentioned above, admits to generalized body weakness with accelerating dizziness and lightheadedness. No chest pain or palpitations or PND. Admits to extreme odynophagia, dysphagia, and swelling of the oropharyngeal areas noted. Also admits to cutaneous rashes with progressive shortness of breath and was initially intubated in the OR as noted. At this time, his swallowing seems to be much improved over the last day or so as noted and he has since then been extubated on transfer to telemetry. No recent alterations in bowel and urinary patterns. PHYSICAL EXAMINATION: GENERAL: This is an average-built male, in no apparent distress. VITAL SIGNS: Blood pressure of 140/80, pulse of 70 beats per minute and regular, temperature 98, respirations 20. Height is 5 feet 5 inches, weight is 146 pounds. HEENT: Head: Normocephalic. Eyes: Anicteric with pink conjunctivae. Funduscopy is not possible at this time. Ears, nose, and throat otherwise normal. NECK: Supple. Thyroid gland is normal size. No carotid bruits. No cervical adenopathy. CARDIOPULMONARY: Adynamic precordium. S1 and S2, rapid and regular. LUNGS: Clear to auscultation. ABDOMEN: Flat, soft, with positive bowel sounds. EXTREMITIES: No peripheral edema. Pulses are +2 bilaterally. LABORATORY DATA: Chemistries, latest one, BUN of 29, sodium 144, potassium 4.7, chloride 104, CO2 of 22, glucose 271, creatinine 1.1. His calcium is 7.3, with an albumin of 2.7, and a corrected calcium of 8.6 which is pretty normal. ASSESSMENT: This is a 67-year-old male with acute epiglottitis, with severe odynophagia and restricted swallowing and airway compromise, since then has been extubated and currently on IV steroid therapy with supervening transient hyperglycemic accelerations that should improve as steroids are tapered down accordingly. He also has apparent hypocalcemia, but this is related to marked hypoalbuminemia from recent undernutrition and nil oral intake is there because of aforementioned conditions as mentioned. His corrected calcium is actually 8.6, requiring no oral, medical, or parenteral intervention. PLAN OF MANAGEMENT: We will continue the present low dose correction scale of regular insulin as ordered and will resume his oral hypoglycemic therapy as his oral intake improves accordingly. We will not need any kind of parenteral calcium supplementation at this time, but would obtain vitamin B levels and improve his nutrition either orally or enterally as indicated. We will follow up with you. Brooke Bauer MD
--- NOTE | 2017-12-08 14:23 | CARD ---
APPROVED REPORT EXAM: Two-dimensional and M-mode echocardiogram with Doppler and color Doppler. Other Information Quality : [employer] : RISK FACTORS Hypertension Diabetes 2D DIMENSIONS IVSd1.1 (0.7-1.1cm)LVDd4.9 (3.9-5.9cm) PWd0.8 (0.7-1.1cm)LVDs3.1 (2.5-4.0cm) FS (%) 37.1 %LVEF (%)66.8 (>50%) M-Mode DIMENSIONS RVDd2.88 (2.1-3.2cm)Left Atrium (MM)4.39 (2.5-4.0cm) IVSd1.08 (0.7-1.1cm)Aortic Root3.30 (2.2-3.7cm) LVDd4.86 (4.0-5.6cm)Aortic Cusp Exc.2.21 (1.5-2.0cm) PWd0.90 (0.7-1.1cm)FS (%) 31 % LVDs3.37 (2.0-3.8cm)LVEF (%)58 (>50%) Mitral Valve MV E Jiteyjxt644.8cm/sMV A Twjbwpvq60.0cm/sE/A ratio1.4 TDI E/Lateral E'0.0E/Medial E'0.0 Tricuspid Valve TR Peak [id number]/sTR Peak Gr.[id number] LEFT VENTRICLE The left ventricle is normal size. There is normal left ventricular wall thickness. The left ventricular function is normal. The left ventricular ejection fraction is within the normal range. No regional wall motion abnormalities noted. Transmitral Doppler flow pattern is Grade II-pseudonormal filling dynamics. LV FILLING PRESSURES ARE MOD INCREASED No left ventricle thrombus noted on this study. There is no ventricular septal defect visualized. There is no left ventricular aneurysm. There is no mass noted in the left ventricle. RIGHT VENTRICLE The right ventricle is normal size. There is normal right ventricular wall thickness. The right ventricular systolic function is normal. ATRIA The left atrium size is normal.LA VOLMUME IS MOD. INCREASED The right atrium size is normal. The interatrial septum is intact with no evidence for an atrial septal defect. AORTIC VALVE The aortic valve is normal in structure and function. No aortic regurgitation is present. There is no aortic valvular stenosis. There is no aortic valvular vegetation. MITRAL VALVE The mitral valve is normal in structure and function. There is no evidence of mitral valve prolapse. There is no mitral valve stenosis. Mitral regurgitation is mild. ERO ,EFFECTIVE REGURGITANT ORICE IS 0.1 CM2. (MILD) REGURGITANT VOLUME IS 26 ML , MILD TRICUSPID VALVE The tricuspid valve is normal in structure and function. There is mild tricuspid regurgitation. Right ventricular systolic pressure is estimated at 30-40 mmHg. There is no tricuspid valve prolapse or vegetation. There is no tricuspid valve stenosis. PULMONIC VALVE The pulmonary valve is normal in structure and function. There is no pulmonic valvular regurgitation. There is no pulmonic valvular stenosis. GREAT VESSELS The aortic root is normal in size. The ascending aorta is normal in size. The pulmonary artery is normal. The IVC is normal in size and collapses >50% with inspiration. PERICARDIAL EFFUSION The pericardium appears normal. There is no pleural effusion. <Conclusion> The left ventricular function is normal. The left ventricular ejection fraction is within the normal range. Transmitral Doppler flow pattern is Grade II-pseudonormal filling dynamics. LV FILLING PRESSURES ARE MOD INCREASED The left atrium size is normal.LA VOLMUME IS MOD. INCREASED Mitral regurgitation is mild. ERO ,EFFECTIVE REGURGITANT ORICE IS 0.1 CM2. (MILD) REGURGITANT VOLUME IS 26 ML , MILD There is mild tricuspid regurgitation. Right ventricular systolic pressure is estimated at 30-40 mmHg.
[2017-12-08] MEDS ORDERED: Simethicone 40 mg/0.6 ml Liquid (30 ml) PO ONE (15:25)
[2017-12-08 15:40] VITALS: BP 154/75; PULSE 71; O2SAT 98
--- NOTE | 2017-12-08 15:53 | CP.PCM.DIS ---
Addendum entered and electronically signed by Michell Wei DO 12/08/17 18:12: [facility]: [phone] Patient was called and verified that the phone number for [facility] was given Original Note: <Michell Wei - Last Filed: 12/08/17 17:48> Provider - Provider Date of Admission: 12/03/17 02:48 Attending physician: Jose Damian MD Consults: Dr. Juancarlos Graves Time Spent in preparation of Discharge (in minutes): 35 Hospital Course - Lab Results Lab Results: Micro Results 12/03/17 02:41 Blood Blood Culture - Final NO GROWTH AFTER 5 DAYS 12/03/17 02:41 Blood Gram Stain - Final TEST NOT PERFORMED 12/03/17 02:41 Blood Blood Culture - Final NO GROWTH AFTER 5 DAYS 12/03/17 02:41 Blood Gram Stain - Final TEST NOT PERFORMED 12/02/17 23:22 Throat Group A Strep Throat Culture - Final NO BETA STREP GROUP A ISOLATED. 12/03/17 05:08 Nose MRSA Culture (Admit) - Final MRSA NOT DETECTED 12/03/17 09:13 Throat Group A Strep Throat Culture - Final NO BETA STREP GROUP A ISOLATED. 12/03/17 07:34 Urine,Carlos Urine Culture - Final No Growth (<1,000 CFU/ML) Most Recent Lab Values WBC 5.0 K/uL (4.8-10.8) 12/08/17 07:30 RBC 3.20 Mil/uL (4.40-5.90) L 12/08/17 07:30 Hgb 9.4 g/dL (12.0-18.0) L 12/08/17 07:30 Hct 27.4 % (35.0-51.0) L 12/08/17 07:30 MCV 85.6 fL (80.0-94.0) D 12/08/17 07:30 MCH 29.4 pg (27.0-31.0) 12/08/17 07:30 MCHC 34.3 g/dL (33.0-37.0) 12/08/17 07:30 RDW 13.1 % (11.5-14.5) 12/08/17 07:30 Plt Count 191 K/uL (130-400) 12/08/17 07:30 MPV 10.0 fL (7.2-11.7) 12/08/17 07:30 Neut % (Auto) 71.6 % (50.0-75.0) 12/08/17 07:30 Lymph % (Auto) 17.5 % (20.0-40.0) L 12/08/17 07:30 [place] % (Auto) 10.2 % (0.0-10.0) H 12/08/17 07:30 Eos % (Auto) 0.5 % (0.0-4.0) 12/08/17 07:30 Baso % (Auto) 0.2 % (0.0-2.0) 12/08/17 07:30 Neut # (Auto) 3.6 K/uL (1.8-7.0) 12/08/17 07:30 Lymph # (Auto) 0.9 K/uL (1.0-4.3) L 12/08/17 07:30 [place] # (Auto) 0.5 K/uL (0.0-0.8) 12/08/17 07:30 Eos # (Auto) 0.0 K/uL (0.0-0.7) 12/08/17 07:30 Baso # (Auto) 0.0 K/uL (0.0-0.2) 12/08/17 07:30 Neutrophils % (Manual) 85 % (50-75) H 12/06/17 06:19 Band Neutrophils % 2 % (0-2) 12/04/17 05:55 Lymphocytes % (Manual) 5 % (20-40) L 12/06/17 06:19 Monocytes % (Manual) 10 % (0-10) 12/06/17 06:19 Eosinophils % (Manual) 1 % (0-4) 12/02/17 23:22 Platelet Estimate Normal (NORMAL) 12/06/17 06:19 Large Platelets Present 12/06/17 06:19 Hypochromasia (manual) Slight 12/06/17 06:19 Poikilocytosis (manual Slight 12/06/17 06:19 Anisocytosis (manual) Slight 12/06/17 06:19 Microcytosis (manual) Slight 12/03/17 06:32 Ovalocytes Slight 12/03/17 06:32 Javier Cells Slight 12/06/17 06:19 APTT 36 SECONDS (21-34) H 12/04/17 05:55 Puncture Site Lb 12/05/17 05:28 pCO2 33 mm/Hg (35-45) L 12/05/17 05:28 pO2 196 mm/Hg (80-100) H 12/05/17 05:28 HCO3 19.3 mmol/L (21-28) L 12/05/17 05:28 ABG pH 7.34 (7.35-7.45) L 12/05/17 05:28 ABG Total CO2 18.8 mmol/L (22-28) L 12/05/17 05:28 ABG O2 Saturation 98.8 % (95-98) H 12/05/17 05:28 ABG Base Excess -7.2 mmol/L (-2.0-3.0) L 12/05/17 05:28 ABG Hemoglobin 8.9 g/dL (11.7-17.4) L 12/05/17 05:28 ABG Carboxyhemoglobin 0.8 % (0.5-1.5) 12/05/17 05:28 POC ABG HHb (Measured) 1.2 % (0.0-5.0) 12/05/17 05:28 ABG Methemoglobin 0.7 % (0.0-3.0) 12/05/17 05:28 Marlon Test Na 12/05/17 05:28 A-a O2 Difference 48.0 mm/Hg 12/05/17 05:28 Respiratory Index 0.2 12/05/17 05:28 Hgb O2 Saturation 97.3 % (95.0-98.0) 12/05/17 05:28 Vent Mode Prvc 12/05/17 05:28 Mechanical Rate 14 12/05/17 05:28 FiO2 40.0 % 12/05/17 05:28 Tidal Volume 450 12/05/17 05:28 PEEP 5 12/05/17 05:28 Crit Value Called To Simon sanches md 12/04/17 04:55 Crit Value Called By Brent fitzgerald rrt 12/04/17 04:55 Crit Value Read Back Y 12/04/17 04:55 Blood Gas Notified Time 548 12/04/17 04:55 Sodium 134 mmol/L (132-148) 12/08/17 07:32 Potassium 4.7 mmol/L (3.6-5.2) 12/08/17 07:32 Chloride 104 mmol/L (98-107) 12/08/17 07:32 Carbon Dioxide 22 mmol/L (22-30) 12/08/17 07:32 Anion Gap 12 (10-20) 12/08/17 07:32 BUN 29 mg/dL (9-20) H 12/08/17 07:32 Creatinine 1.1 mg/dL (0.8-1.5) 12/08/17 07:32 Est GFR ( Amer) > 60 12/08/17 07:32 Est GFR (Non-Af Amer) > 60 12/08/17 07:32 POC Glucose (mg/dL) 290 mg/dL (65-110) H 12/08/17 11:17 Random Glucose 271 mg/dL (75-110) H 12/08/17 07:32 Hemoglobin A1c 7.0 % (4.2-6.5) H 12/04/17 05:55 Calcium 7.3 mg/dl (8.6-10.4) L 12/08/17 07:32 Ionized Calcium 4.3 mg/dL (4.80-5.60) L 12/05/17 15:57 Phosphorus 3.0 mg/dL (2.5-4.5) 12/08/17 07:32 Magnesium 2.0 mg/dL (1.6-2.3) 12/08/17 07:32 Total Bilirubin 0.3 mg/dL (0.2-1.3) 12/08/17 07:32 AST 17 U/L (17-59) D 12/08/17 07:32 ALT 16 U/L (21-72) L 12/08/17 07:32 Alkaline Phosphatase 78 U/L (38-126) 12/08/17 07:32 Total Protein 5.6 g/dL (6.3-8.3) L 12/08/17 07:32 Albumin 2.7 g/dL (3.5-5.0) L 12/08/17 07:32 Globulin 3.0 gm/dL (2.2-3.9) 12/08/17 07:32 Albumin/Globulin Ratio 0.9 (1.0-2.1) L 12/08/17 07:32 Triglycerides 111 mg/dL (0-149) 12/04/17 05:58 Cholesterol 159 mg/dL (0-199) 12/04/17 05:58 LDL Cholesterol Direct 79 mg/dL (0-129) 12/04/17 05:58 HDL Cholesterol 40 mg/dL (30-70) 12/04/17 05:58 25-OH Vitamin D Total < 12.8 NG/ML (30.0-100.0) L 12/05/17 15:57 Procalcitonin 0.06 NG/ML (0.19-0.49) L 12/05/17 15:57 Free T4 2.09 ng/dL (0.78-2.19) 12/04/17 05:58 TSH 3rd Generation 0.16 mIU/L (0.46-4.68) L 12/04/17 05:58 PTH Intact Whole Molec 138 pg/mL (14-64) H 12/05/17 15:57 Urine Color Straw (YELLOW) 12/03/17 05:07 Urine Clarity Clear (Clear) 12/03/17 05:07 Urine pH 6.0 (5.0-8.0) 12/03/17 05:07 Ur Specific [place] 1.030 (1.003-1.030) 12/03/17 05:07 Urine Protein 3+ mg/dL (NEGATIVE) H 12/03/17 05:07 Urine Glucose (UA) Normal mg/dL (Normal) 12/03/17 05:07 Urine Ketones Negative mg/dL (NEGATIVE) 12/03/17 05:07 Urine Blood Negative (NEGATIVE) 12/03/17 05:07 Urine Nitrate Negative (NEGATIVE) 12/03/17 05:07 Urine Bilirubin Negative (NEGATIVE) 12/03/17 05:07 Urine Urobilinogen Normal mg/dL (0.2-1.0) 12/03/17 05:07 Ur Leukocyte Esterase Neg Rocco/uL (Negative) 12/03/17 05:07 Urine WBC (Auto) < 1 /hpf (0-5) 12/03/17 05:07 Urine RBC (Auto) 4 /hpf (0-3) H 12/03/17 05:07 EBV Capsid Ag IgG Ab 281.00 U/mL H 12/03/17 09:11 EBV Capsid Ag IgM Ab <36.00 U/mL 12/03/17 09:11 EBV Nuclear Antigen Ab <18.00 U/mL 12/03/17 09:11 EBV Interpretation See note 12/03/17 09:11 HSV I IgG Ab <0.90 index 12/03/17 10:56 HSV II IgG <0.90 index 12/03/17 10:56 Influenza Typ A,B (EIA) Negative for flu a/b (NEGATIVE) 12/03/17 10:56 Grp A Beta Strep Ag Negative (NEGATIVE) 12/03/17 09:13 VZV IgG Antibody Positive (POSITIVE) 12/03/17 10:56 VZV IgM Antibody <=0.90 (<=0.90) 12/03/17 10:56 Blood Type B POSITIVE 12/03/17 02:57 Antibody Screen Negative 12/03/17 02:57 - Hospital Course Hospital Course: Patient had SOB for a day, unable to tolerate food, last drank tea at 9 am . Patient was offered a slice of bread by family, but patient had difficulty swallowing and did not want to eat. Patient admits to fever. Denies chills, diarrhea, constipation, numbness, weakness. Patient states he had a rash on his arm recently which went away after being given benadryl. In ER patient was given decadron and epinephrine. Upon interview, patient did not have stridor, no accessory muscle use. CT soft neck tissues show edema and epiglotitis. Patient was brought to the [facility] and intubated by ENT Dr. Graves. Patient was brought to the ICU. Patient was eventually extubated and passed swallow eval. Dr. Graves did a laryngoscopy to re -evaluate. no retropharyngeal abscess. Patient was given IV decadron during his stay. Echo was done that shows: Left Ventricular function is normal. EF is normal range. Grade II pseudonormal filling dynamics. Mild tricuspid regurgitation. Right ventricular systolic pressure is estimated 30-40mmHg. Patient was deemed stable for discharge. Patient discharged on prednisone and antibiotics. - Date & Time of H&P Date of H&P: 12/08/17 Time of H&P: 16:50 Discharge Plan - Discharge Medications Prescriptions: amLODIPine [Norvasc] 10 mg PO DAILY 30 Days tab Amoxicillin/Clavulanate [Augmentin 875 MG-125 MG] 1 tab PO BID #20 tab Famotidine [Pepcid] 20 mg PO BID #10 tab Losartan [Cozaar] 50 mg PO DAILY 30 Days tab metFORMIN [glucOPHAGE] 500 mg PO BID 30 Days tab Prednisone [Deltasone] 40 mg PO DAILY #5 tablet - Follow Up Plan Condition: IMPROVED Disposition: HOME/ ROUTINE Instructions: Epiglottitis (DC), Amlodipine, Amoxicillin and Clavulanate, Famotidine, Losartan, Metformin, Prednisone, Acute Epiglottitis (DC) Additional Instructions: follow up with primary care doctor for further workup. follow up with Dr. Graves in one week return to ED if difficulty breathing, difficulty swallowing take antibiotics as directed, eat yogurt take prednisone as directed follow up with Dr. Bauer for further workup [facility]: [phone] Patient was called and verified that the phone number for [facility] was given Referrals: [facility] [Outside] Galileo Graves MD [Staff Provider] - Brooke Bauer MD [Medical Doctor] - <Aidee Rivera V - Last Filed: 12/08/17 23:52> Provider - Provider Date of Admission: 12/03/17 02:48 Attending physician: Jose Damian MD Diagnosis - Discharge Diagnosis (1) Acute epiglottitis with airway obstruction Status: Acute (2) Diabetes Status: Chronic (3) Hypertension Status: Chronic (4) Acute renal insufficiency Status: Acute (5) Prophylactic measure Status: Acute Hospital Course - Lab Results Lab Results: Micro Results 12/07/17 Unknown Naris MRSA Culture - Final MRSA NOT DETECTED 12/03/17 02:41 Blood Blood Culture - Final NO GROWTH AFTER 5 DAYS 12/03/17 02:41 Blood Gram Stain - Final TEST NOT PERFORMED 12/03/17 02:41 Blood Blood Culture - Final NO GROWTH AFTER 5 DAYS 12/03/17 02:41 Blood Gram Stain - Final TEST NOT PERFORMED 12/02/17 23:22 Throat Group A Strep Throat Culture - Final NO BETA STREP GROUP A ISOLATED. 12/03/17 05:08 Nose MRSA Culture (Admit) - Final MRSA NOT DETECTED 12/03/17 09:13 Throat Group A Strep Throat Culture - Final NO BETA STREP GROUP A ISOLATED. 12/03/17 07:34 Urine,Carlos Urine Culture - Final No Growth (<1,000 CFU/ML) Most Recent Lab Values WBC 5.0 K/uL (4.8-10.8) 12/08/17 07:30 RBC 3.20 Mil/uL (4.40-5.90) L 12/08/17 07:30 Hgb 9.4 g/dL (12.0-18.0) L 12/08/17 07:30 Hct 27.4 % (35.0-51.0) L 12/08/17 07:30 MCV 85.6 fL (80.0-94.0) D 12/08/17 07:30 MCH 29.4 pg (27.0-31.0) 12/08/17 07:30 MCHC 34.3 g/dL (33.0-37.0) 12/08/17 07:30 RDW 13.1 % (11.5-14.5) 12/08/17 07:30 Plt Count 191 K/uL (130-400) 12/08/17 07:30 MPV 10.0 fL (7.2-11.7) 12/08/17 07:30 Neut % (Auto) 71.6 % (50.0-75.0) 12/08/17 07:30 Lymph % (Auto) 17.5 % (20.0-40.0) L 12/08/17 07:30 [place] % (Auto) 10.2 % (0.0-10.0) H 12/08/17 07:30 Eos % (Auto) 0.5 % (0.0-4.0) 12/08/17 07:30 Baso % (Auto) 0.2 % (0.0-2.0) 12/08/17 07:30 Neut # (Auto) 3.6 K/uL (1.8-7.0) 12/08/17 07:30 Lymph # (Auto) 0.9 K/uL (1.0-4.3) L 12/08/17 07:30 [place] # (Auto) 0.5 K/uL (0.0-0.8) 12/08/17 07:30 Eos # (Auto) 0.0 K/uL (0.0-0.7) 12/08/17 07:30 Baso # (Auto) 0.0 K/uL (0.0-0.2) 12/08/17 07:30 Neutrophils % (Manual) 85 % (50-75) H 12/06/17 06:19 Band Neutrophils % 2 % (0-2) 12/04/17 05:55 Lymphocytes % (Manual) 5 % (20-40) L 12/06/17 06:19 Monocytes % (Manual) 10 % (0-10) 12/06/17 06:19 Eosinophils % (Manual) 1 % (0-4) 12/02/17 23:22 Platelet Estimate Normal (NORMAL) 12/06/17 06:19 Large Platelets Present 12/06/17 06:19 Hypochromasia (manual) Slight 12/06/17 06:19 Poikilocytosis (manual Slight 12/06/17 06:19 Anisocytosis (manual) Slight 12/06/17 06:19 Microcytosis (manual) Slight 12/03/17 06:32 Ovalocytes Slight 12/03/17 06:32 Collins Cells Slight 12/06/17 06:19 APTT 36 SECONDS (21-34) H 12/04/17 05:55 Puncture Site Lb 12/05/17 05:28 pCO2 33 mm/Hg (35-45) L 12/05/17 05:28 pO2 196 mm/Hg (80-100) H 12/05/17 05:28 HCO3 19.3 mmol/L (21-28) L 12/05/17 05:28 ABG pH 7.34 (7.35-7.45) L 12/05/17 05:28 ABG Total CO2 18.8 mmol/L (22-28) L 12/05/17 05:28 ABG O2 Saturation 98.8 % (95-98) H 12/05/17 05:28 ABG Base Excess -7.2 mmol/L (-2.0-3.0) L 12/05/17 05:28 ABG Hemoglobin 8.9 g/dL (11.7-17.4) L 12/05/17 05:28 ABG Carboxyhemoglobin 0.8 % (0.5-1.5) 12/05/17 05:28 POC ABG HHb (Measured) 1.2 % (0.0-5.0) 12/05/17 05:28 ABG Methemoglobin 0.7 % (0.0-3.0) 12/05/17 05:28 Marlon Test Na 12/05/17 05:28 A-a O2 Difference 48.0 mm/Hg 12/05/17 05:28 Respiratory Index 0.2 12/05/17 05:28 Hgb O2 Saturation 97.3 % (95.0-98.0) 12/05/17 05:28 Vent Mode Prvc 12/05/17 05:28 Mechanical Rate 14 12/05/17 05:28 FiO2 40.0 % 12/05/17 05:28 Tidal Volume 450 12/05/17 05:28 PEEP 5 12/05/17 05:28 Crit Value Called To Simon sanches md 12/04/17 04:55 Crit Value Called By Brent fitzgerald rrt 12/04/17 04:55 Crit Value Read Back Y 12/04/17 04:55 Blood Gas Notified Time 548 12/04/17 04:55 Sodium 134 mmol/L (132-148) 12/08/17 07:32 Potassium 4.7 mmol/L (3.6-5.2) 12/08/17 07:32 Chloride 104 mmol/L (98-107) 12/08/17 07:32 Carbon Dioxide 22 mmol/L (22-30) 12/08/17 07:32 Anion Gap 12 (10-20) 12/08/17 07:32 BUN 29 mg/dL (9-20) H 12/08/17 07:32 Creatinine 1.1 mg/dL (0.8-1.5) 12/08/17 07:32 Est GFR ( Amer) > 60 12/08/17 07:32 Est GFR (Non-Af Amer) > 60 12/08/17 07:32 POC Glucose (mg/dL) 365 mg/dL (65-110) H 12/08/17 16:24 Random Glucose 271 mg/dL (75-110) H 12/08/17 07:32 Hemoglobin A1c 7.0 % (4.2-6.5) H 12/04/17 05:55 Calcium 7.3 mg/dl (8.6-10.4) L 12/08/17 07:32 Ionized Calcium 4.3 mg/dL (4.80-5.60) L 12/05/17 15:57 Phosphorus 3.0 mg/dL (2.5-4.5) 12/08/17 07:32 Magnesium 2.0 mg/dL (1.6-2.3) 12/08/17 07:32 Total Bilirubin 0.3 mg/dL (0.2-1.3) 12/08/17 07:32 AST 17 U/L (17-59) D 12/08/17 07:32 ALT 16 U/L (21-72) L 12/08/17 07:32 Alkaline Phosphatase 78 U/L (38-126) 12/08/17 07:32 Total Protein 5.6 g/dL (6.3-8.3) L 12/08/17 07:32 Albumin 2.7 g/dL (3.5-5.0) L 12/08/17 07:32 Globulin 3.0 gm/dL (2.2-3.9) 12/08/17 07:32 Albumin/Globulin Ratio 0.9 (1.0-2.1) L 12/08/17 07:32 Triglycerides 111 mg/dL (0-149) 12/04/17 05:58 Cholesterol 159 mg/dL (0-199) 12/04/17 05:58 LDL Cholesterol Direct 79 mg/dL (0-129) 12/04/17 05:58 HDL Cholesterol 40 mg/dL (30-70) 12/04/17 05:58 25-OH Vitamin D Total < 12.8 NG/ML (30.0-100.0) L 12/05/17 15:57 Procalcitonin 0.06 NG/ML (0.19-0.49) L 12/05/17 15:57 Free T4 2.09 ng/dL (0.78-2.19) 12/04/17 05:58 TSH 3rd Generation 0.16 mIU/L (0.46-4.68) L 12/04/17 05:58 PTH Intact Whole Molec 138 pg/mL (14-64) H 12/05/17 15:57 Urine Color Straw (YELLOW) 12/03/17 05:07 Urine Clarity Clear (Clear) 12/03/17 05:07 Urine pH 6.0 (5.0-8.0) 12/03/17 05:07 Ur Specific [place] 1.030 (1.003-1.030) 12/03/17 05:07 Urine Protein 3+ mg/dL (NEGATIVE) H 12/03/17 05:07 Urine Glucose (UA) Normal mg/dL (Normal) 12/03/17 05:07 Urine Ketones Negative mg/dL (NEGATIVE) 12/03/17 05:07 Urine Blood Negative (NEGATIVE) 12/03/17 05:07 Urine Nitrate Negative (NEGATIVE) 12/03/17 05:07 Urine Bilirubin Negative (NEGATIVE) 12/03/17 05:07 Urine Urobilinogen Normal mg/dL (0.2-1.0) 12/03/17 05:07 Ur Leukocyte Esterase Neg Rocco/uL (Negative) 12/03/17 05:07 Urine WBC (Auto) < 1 /hpf (0-5) 12/03/17 05:07 Urine RBC (Auto) 4 /hpf (0-3) H 12/03/17 05:07 EBV Capsid Ag IgG Ab 281.00 U/mL H 12/03/17 09:11 EBV Capsid Ag IgM Ab <36.00 U/mL 12/03/17 09:11 EBV Nuclear Antigen Ab <18.00 U/mL 12/03/17 09:11 EBV Interpretation See note 12/03/17 09:11 HSV I IgG Ab <0.90 index 12/03/17 10:56 HSV II IgG <0.90 index 12/03/17 10:56 Influenza Typ A,B (EIA) Negative for flu a/b (NEGATIVE) 12/03/17 10:56 Grp A Beta Strep Ag Negative (NEGATIVE) 12/03/17 09:13 VZV IgG Antibody Positive (POSITIVE) 12/03/17 10:56 VZV IgM Antibody <=0.90 (<=0.90) 12/03/17 10:56 Blood Type B POSITIVE 12/03/17 02:57 Antibody Screen Negative 12/03/17 02:57 Attending/Attestation - Attestation I have personally seen and examined this patient.: Yes I have fully participated in the care of the patient.: Yes I have reviewed all pertinent clinical information, including history, physical exam and plan: Yes Notes (Text): Patient seen,examined and case discussed with day-time resident. Patient seen with his daughter at bedside and help assistance in translation. Patient is swallowing well. He is tolerating diet. Patient had mild headache today Blood pressure uncontrolled; add arb, check ekg, and ordered echocardiogram corrected calcium is normal Discussed with ENT, patient is stable for discharge. Discussed with ID, recommend Augmentin 875-125mg PO BID for ten days. Patient given information for the [facility] ([phone]) to follow-up upon discharge in regards to hyperparathyroidism and vitamin D levels. Discharge Diagnoses: (1) Acute epiglottitis with airway obstruction Ruled out for Retropharyneal Abscess Assessment & Plan: * ENT (Dr. Graves) on consult-->help appreciated * Discussed with ENT, stable for discharge. no Abscess noted. * ID (Dr. Perales) on consult-->help appreciated * Discussed with ID, since ENT stable for discharge, recommended Augmentin 875- 125mg PO BID for ten days * CT Soft Tissue Neck with contrast (12/02/17): massively enlarged epiglottis secondary to likely acute infectious/inflammatory process with mass effect upon airway although airway is patent, rounded fluid density along the anterior aspect of C3-4 that is possible early developing retropharyngeal abscess. * Chest xray (12/04/17): no active disease * Patient was intubated prophylactically by anesthesia on admission. * Extubated 12/05/17 * Swallow eval passed Advanced to soft diet * Dexamethasone 4 mg IV Q12H---> Prednisone 40mg PO Daily for 5 days on discharge * Augmentin 875-125mg PO BID for ten days * Herpes Simplex Virus 1/2: negative * Varicella Zoster Virus IgG: positive * Influenza: negative * Group A Beta Strep Ag negative * Varciella IGM: negative * Pending parainfluenza * F/U Xiao Armstrong Virus * Group A Strep: negative * Blood Culture (12/03/17): no growth after 5 days X2 * MRSA (12/03/17): not detected * MRSA (12/07/17): not detected * Urine culture (12/03/17): no growth * Throat (12/03/17): no beta strep group A isolated Status: Resolved (2) Diabetes Assessment & Plan: * Accuchecks QAC and HS * Hgba1c: 7.0 * Restart home medications Status: Chronic (3) Hypertension Assessment & Plan: * Restart Norvasc 10mg PO daily * Start Cozaar 100mg PO daily * Echocardiogram obtained: official reports in the chart * Monitor vital signs Status: Chronic (4) Acute renal insufficiency Assessment & Plan: * monitor BUN/Cr * normalized Status: normalized (5) Electrolyte Abnormalities Assessment & Plan: * Corrected calcium normalized * Hyperparathyroidism: low ionized calcium, high PTH, and low Vitamin D--> patient is not symptomatic at this time--->will warrant outpatient workup * Vitamin D is low-->will start Vitamin D 50,000 IU once day for 8-12 weeks (6) Prophylactic measure * Assessment & Plan: * Heparin 5000 units subq8H for DVT ppx * Protonix 40mg IV q daily for GI ppx Status: Acute
[2017-12-08 16:08] VITALS: TEMP 98.1
[2017-12-08] MEDS ORDERED: Simethicone 80 mg Chewtab PO ONE (17:00)
--- NOTE | 2017-12-11 21:16 | CARD ---
APPROVED REPORT EKG Measurement Heart [id number] <Conclusion> Sinus rhythm with premature atrial complexes in a pattern of bigeminy Nonspecific ST abnormality Abnormal ECG
== END 2017-12-08 18:05 | disposition home or self-care (01) | DRG 153 ==
LOC: C.ER 22:35 → C.9I 12-03 02:48 → C.3T 12-07 18:03
PROVIDERS: ADMIT Internal Medicine; ATTEND Internal Medicine
PROC: 0BH17EZ Insertion of Endotracheal Airway into Trachea, Via Natural or Artificial Opening (ICD-10-PCS; 2017-12-03)
PROC: 5A1945Z Respiratory Ventilation, 24-96 Consecutive Hours (ICD-10-PCS; 2017-12-03)
PROC: 3E033XZ Introduction of Vasopressor into Peripheral Vein, Percutaneous Approach (ICD-10-PCS; 2017-12-03)
PROC: 0CJS8ZZ Inspection of Larynx, Via Natural or Artificial Opening Endoscopic (ICD-10-PCS; principal; 2017-12-03 03:07)
DX: J05.11 Acute epiglottitis with obstruction (principal); E21.3 Hyperparathyroidism, unspecified; I07.1 Rheumatic tricuspid insufficiency; I10 Essential (primary) hypertension; J34.2 Deviated nasal septum; K59.00 Constipation, unspecified; L98.9 Disorder of the skin and subcutaneous tissue, unspecified; N28.9 Disorder of kidney and ureter, unspecified; Z79.4 Long term (current) use of insulin; E20.9 Hypoparathyroidism, unspecified; E11.9 Type 2 diabetes mellitus without complications

== ENCOUNTER 2019-01-04 07:53 | Outpatient (CLI) | payer SELFPAY | END 2019-01-04 07:54 | disposition home or self-care (01) | LOC: C.USIC 07:54 | DX: N20.2 Calculus of kidney with calculus of ureter (principal) ==